=== PATIENT | male | born 1930 | race Caucasian/White ===

== ENCOUNTER → 2016-11-02 | Outpatient (CLI) | payer OTHER | LOC: BHFA 13:30 | PROVIDERS: ATTEND Internal Medicine Cardiovascular Disease | DX: I47.2 Ventricular tachycardia (principal) | CPT/HCPCS: 78452; 93017; A9500; J2785 ==

== ENCOUNTER → 2016-11-17 | Outpatient (CLI) | payer OTHER | LOC: FIMAGING 13:24 | PROVIDERS: ATTEND Internal Medicine | DX: J90 Pleural effusion, not elsewhere classified (principal) ==

== ENCOUNTER 2016-12-09 12:20 | Inpatient (IN) | payer OTHER ==
[2016-12-09] MEDS ORDERED: ACETAMINOPHEN 325 MG TAB PO PRN (15:04)
[2016-12-09] MEDS ORDERED: MAGNESIUM HYDROXIDE 30 ML UDCUP PO PRN (15:07)
[2016-12-09] MEDS ORDERED: SENNOSIDES 17.6 MG/10 ML UDL PO PRN (15:07)
[2016-12-09] MEDS ORDERED: ALTEPLASE 2 MG VIAL IVP PRN (15:07)
[2016-12-09] MEDS ORDERED: MAG HYDROX/AL HYDROX/SIMETH 30 ML UDCUP PO PRN (15:07)
[2016-12-09] MEDS ORDERED: POLYETHYLENE GLYCOL 3350 17 GM PKT PO PRN (15:07)
[2016-12-09] MEDS ORDERED: BISACODYL 10 MG SUPP PR PRN (15:07)
--- NOTE | 2016-12-09 15:48 | PDGENHP ---
History and Physical - Chief Complaint functional decline s/p prolonged hospitalization - History of Present Illness Date of admission: 12/09/2016 Referring physician: Mary Gutierres MD Time of evaluation: 1300 Referring facility: [facility] diagnosis: Debility, Parkinsonism Impairment group: 16, 03.2 Etiologic diagnosis: Empyema c/b parkinsonism Date of onset: 11/17/2016 History of present illness: Mr. Ortega is a RHD 85yo man with history of BPH and recent diagnosis of Parkinsonism (~1month prior to acute hospitalization ) who presented to [facility] with bacterial (pleural fluid grew Strep Intermedius) pneumonia and empyema necessitating a VATS decortication (Dr. Camilo Steele) on 11/17. He was also found to have severe oropharyngeal dysphagia which likely contributed to the above and is currently NPO and had PEG placed. Before discharge had chest tube removed and ID consult recommending 4 additional weeks of IV ceftriaxone for pneumonia and presumed endocarditis, therefore a PICC has been placed. Currently is without complaint and eager to improve his functional status. History Information - Allergies/Home Medication List Allergies/Adverse Reactions: No Known Allergies Allergy (Unverified 02/26/13 15:42) Home Medications: RX: Dorzolamide HCl/Timolol Maleat [Cosopt Eye Drops] 1 drop EACHEYE BID [Last Taken 12/08/16] RX: Doxazosin Mesylate [Cardura 4 MG (*)] 4 mg PO HS 02/26/13 [Last Taken ] RX: Finasteride [Proscar 5 MG (*)] 5 mg PO DAILY 02/26/13 [Last Taken 12/09/16] RX: Latanoprost 0.005% [Xalatan 0.005% (*)] 1 drops EACHEYE HS 02/26/13 [Last Taken 12/07/16] RX: Simvastatin [Zocor 40 mg] 40 mg PO DAILY18 02/26/13 [Last Taken 12/08/16] RX: Aspirin [Aspirin 81mg (*)] 81 mg PO DAILY 08/12/15 [Last Taken 11/17/16] RX: C/E/Zn/Cu/OM3/DHA/EPA/LUT/ZEAX [Preservision Areds 2 Softgel] 1 each PO BID 08/12/15 [Last Taken 08/12/15 08:00] RX: Multivitamins [Multivitamin (*)] 1 each PO DAILY 08/12/15 [Last Taken 08:00] RX: Niacin [Niacin 500 mg (*)] 1,000 mg PO BID 08/12/15 [Last Taken 08/12/15 08: 00] RX: Hartshorn-3 Fatty Acids [Fish Oil 1000 mg (*)] 1,000 mg PO HS 08/12/15 [Last Taken 08/11/15] RX: Hartshorn-3 Fatty Acids [Fish Oil 1000 mg (*)] 2,000 mg PO DAILY 08/12/15 [Last Taken 08/12/15] RX: Donepezil HCl [Aricept 5 MG (*)] 10 mg PO DAILY 05/23/16 [Last Taken ] RX: Ascorbic Acid [Vitamin C 500 mg (*)] 500 mg PO DAILY 11/17/16 [Last Taken Unknown] RX: Brimonidine 0.1% [ALPHAGAN P 0.1% (*)] 1 drops EACHEYE DAILY 11/17/16 [Last Taken Unknown] RX: Carbidopa/Levodopa 25/100Mg [Sinemet 25/100 MG (*)] 1 tab PO TID 11/17/16 [ Last Taken 12/09/16] I have personally reviewed and updated: family history, medical history, social history, surgical history Past Medical History: BPH. Parkinsons. Glaucoma. HTN - Surgical History Reports: no pertinent surgical hx - Family History Additional family history: NC - Social History Smoking Status: Never smoked Alcohol Use: None Drug Use: None Additional social history: Lives with in [place], both retired. LOTS of family around community. Prior to admit was independent in all functional tasks but is no longer driving. Review of Systems ROS: 10pt was reviewed & negative except for what was stated in HPI & below Constitutional: Denies: chills EENMT: Denies: double vision Cardiac: Denies: chest pain Respiratory: Denies: cough, shortness of breath Gastrointestinal: Denies: vomitting Genitourinary: Reports: frequency, urgency Muscolosketal: Denies: joint pain Skin: Reports: rash Neurological: Reports: tremors Hematologic/Lymphatic: Reports: anemia Physical Exam Temp Pulse Resp BP Pulse Ox 36.8 C 56 L 16 126/61 H 96 12/09/16 13:14 12/09/16 13:14 12/09/16 13:14 12/09/16 13:14 12/09/16 13:14 O2 (L/minute) 0 Constitutional: no apparent distress, not in pain Eyes: PERRL Ears, Nose, Mouth, Throat: moist mucous membranes Cardiovascular: regular rate and rhythym Respiratory: no respiratory distress, no rales or rhonchi, clear to auscultation Gastrointestinal: normoactive bowel sounds, soft, non-tender abdomen Skin: warm, other (Fungal perineal rash, excoriated papular back rash) Musculoskeletal: full muscle strength, No normal joint ROM (limited left shoulder range of motion) Neurologic: AAOx3, CN II-XII Intact, other (+resting tremor, no ataxia, slight bradykenesia and initiation lag, some executive functional deficits but no aphasia), No numbness Psychiatric: interacting appropriately Lymph, Heme, Immunologic: petechiae (some bruising in legs/arms/abdomen) Lab Data & Imaging Review Relevant labs (12/07) WBC 8.5, Hgb 9.5, Plt 351 NA 135 K 4.2 Cl 102 C02 27 BUN 21 Cr 0.6 Glu 119 Assessment & Plan Assessment: Mr. Ortega is a pleasant right handed 85 year old man with recent diagnosis of Parkinsonism (~1month prior to acute hospitalization) who presented to [facility] with bacterial (pleural fluid grew Strep Intermedius) pneumonia and empyema necessitating a VATS decortication (Dr. Camilo Steele) on 11/17 with severe oropharyngeal dysphagia s/p PEG placement. All of which has resulted in significant deconditioning and functional decline. Currently is requiring assistance for most ADLs and mobility. He is appropriate for rehabilitation with therapy needs for physical, speech, and occupational therapy regarding mobility, dysphagia, and activities of daily living. Her goal is to be independent enough to return home and live with intermittent assistance. He will need close medical management and nursing care regarding her comorbidities including pulmonary disease, risk for falls, risk for aspiration, ongoing infectious and wound management, initiation of complicated novel medical regiment, and medical education. Plan: * Debility following prolonged hospitalization: Continue physical and occupational therapy to optimize functional status and mobility. 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 Sinemet TID and aricept * BPH: cont finasteride 5 daily, consider addition of flomax, will get bladder scan * Perineal Fungal rash: BID Nystatin * Excoriated back rash: reports this is chronic but unclear etiology, will trial cortisone cream for pruritis * Anemia: likely post-op, improving at OSH will recheck before d/c * HTN/Dyslipidemia: cont cardura, lipitor (home was on niacin and possibly fish oil but difficult with PEG, will hold to outpt f/u with pcp) * Glaucoma: cont. Cosopt BID, latanoprost HS Prophylaxis-> DVT, on LMWH. GI, on ranitidine BID FULL CODE, this was discussed with pt and on admit and info packet given to ensure documentation of wishes and help understanding of code process F/U: Dr. James (ID) in 3-[address] Steele (Surgery) in 3 weeks ELOS 18 days. Plan to d/c to home with 6STE with available for intermittent assist.
[2016-12-09] MEDS: CARBIDOPA/LEVODOPA 25 MG/100 MG TAB PO SCH ×2 (15:58→23:04)
[2016-12-09] MEDS: HYDROCORTISONE 1% CREAM TP SCH ×2 (16:01→20:10)
[2016-12-09] MEDS ORDERED: ATORVASTATIN CALCIUM 20 MG TAB PO SCH (18:00)
[2016-12-09] MEDS: NIACIN 500 MG TAB PO SCH (20:06)
[2016-12-09] MEDS: RANITIDINE HCL 150 MG/10 ML UDCUP TUBE SCH (20:06)
[2016-12-09] MEDS: NYSTATIN 15 GM OINTMENT TP SCH (20:09)
[2016-12-09] MEDS: LATANOPROST 0.005% 2.5 ML OPHT DROPS EACHEYE SCH (20:10)
[2016-12-09] MEDS: DORZOLAMIDE/TIMOLOL 10 ML OPHT.BTL EACHEYE SCH (20:10)
[2016-12-09] MEDS ORDERED: MELATONIN 3 MG TAB PO SCH (21:00)
[2016-12-09] MEDS ORDERED: DOXAZOSIN MESYLATE 4 MG TAB PO SCH (21:00)
[2016-12-09] MEDS: PRESERVISION AREDS2 FORMULA EYE VIT 1 EACH PO SCH (23:01)
[2016-12-10] MEDS ORDERED: OMEGA-3 FATTY ACIDS 1,000 MG CAP PO SCH (09:00)
[2016-12-10] MEDS ORDERED: CEFTRIAXONE IV SCH (09:00)
[2016-12-10] MEDS ORDERED: BRIMONIDINE 0.1% 5 ML OPHT.BTL EACHEYE SCH (09:00)
[2016-12-10] MEDS ORDERED: MULTIVITAMINS 1 EACH TAB PO SCH (09:00)
[2016-12-10] MEDS ORDERED: ASCORBIC ACID 500 MG TAB PO SCH (09:00)
[2016-12-10] MEDS ORDERED: ASPIRIN 81 MG CHEWABLE TAB PO SCH (09:00)
[2016-12-10] MEDS ORDERED: DEXTROSE IV SCH (09:00)
[2016-12-10] MEDS ORDERED: FINASTERIDE 5 MG TAB PO SCH (09:00)
[2016-12-10] MEDS ORDERED: DONEPEZIL HCL 5 MG TAB PO SCH (09:00)
[2016-12-10] MEDS: CARBIDOPA/LEVODOPA 25 MG/100 MG TAB PO SCH (09:25)
[2016-12-10] MEDS: DORZOLAMIDE/TIMOLOL 10 ML OPHT.BTL EACHEYE SCH ×2 (09:25→21:30)
[2016-12-10] MEDS: ENOXAPARIN 40 MG/0.4 ML SYR SC SCH (09:25)
[2016-12-10] MEDS: NIACIN 500 MG TAB PO SCH (09:26)
[2016-12-10] MEDS: HYDROCORTISONE 1% CREAM TP SCH ×2 (09:26→21:30)
[2016-12-10] MEDS: NYSTATIN 15 GM OINTMENT TP SCH ×2 (09:27→21:31)
[2016-12-10] MEDS: RANITIDINE HCL 150 MG/10 ML UDCUP TUBE SCH ×2 (09:27→21:28)
[2016-12-10] MEDS ORDERED: ACETAMINOPHEN 650 MG/20.3 ML UDCUP TUBE PRN (11:30)
[2016-12-10] MEDS ORDERED: MAG HYDROX/AL HYDROX/SIMETH 30 ML UDCUP TUBE PRN (11:32)
[2016-12-10] MEDS ORDERED: MAGNESIUM HYDROXIDE 30 ML UDCUP TUBE PRN (11:32)
[2016-12-10] MEDS ORDERED: SENNOSIDES 17.6 MG/10 ML UDL TUBE PRN (11:33)
[2016-12-10] MEDS: PRESERVISION AREDS2 FORMULA EYE VIT 1 EACH PO SCH (11:55)
--- NOTE | 2016-12-10 11:55 | SOAPPROG ---
SOAP Progress Note Assessment/Plan: Mr. Ortega is a pleasant right handed 85 year old man with recent diagnosis of Parkinsonism (~1month prior to acute hospitalization) who presented to [facility] with bacterial (pleural fluid grew Strep Intermedius) pneumonia and empyema necessitating a VATS decortication (Dr. Camilo Steele) on 11/17 with severe oropharyngeal dysphagia s/p PEG placement. All of which has resulted in significant deconditioning and functional decline. Currently is requiring assistance for most ADLs and mobility. * Debility following prolonged hospitalization: Continue physical and occupational therapy to optimize functional status and mobility. 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 home Sinemet TID and aricept * BPH: cont finasteride 5 daily, consider addition of flomax, will get bladder scan * Perineal Fungal rash: BID Nystatin * Excoriated back rash: reports this is chronic but unclear etiology, will trial cortisone cream for pruritis * Anemia: likely post-op, improving at OSH will recheck before d/c * HTN/Dyslipidemia: cont cardura, lipitor (home was on niacin and possibly fish oil but difficult with PEG, will hold to outpt f/u with pcp) * Glaucoma: cont. Cosopt BID, latanoprost HS Prophylaxis-> DVT, on LMWH. GI, on ranitidine BID FULL CODE, this was discussed with pt and on admit and info packet given to ensure documentation of wishes and help understanding of code process F/U: Dr. James (ID) in 3-[address] Steele (Surgery) in 3 weeks Subjective: No complaints this a.m. Enjoying therapy. Denies SOB/CP. Objective: Vital Signs Temp Pulse Resp BP Pulse Ox 36.4 C 61 16 97/58 L 93 12/10/16 10:56 12/10/16 10:56 12/10/16 10:56 12/10/16 10:56 12/10/16 10:56 12/09/16 12/10/16 12/11/16 04:59 05:59 05:59 Intake Total 974 Output Total 700 Balance 274 - Pending Discharge Pending Discharge Within 24 Hours: No Pending Discharge Within 48 Hours: No Physical Exam - Physical Exam General Appearance: alert, no apparent distress Neck: supple Respiratory: lungs clear, decreased breath sounds (RLL), No respiratory distress , No accessory muscle use Cardiac/Chest: regular rate, rhythm Abdomen: non-tender, soft, other (PEG site C/d/i) Male Genitalia: erythema Skin: normal color, rash Extremities: No pedal edema Neuro/Psych: alert, normal mood/affect, oriented x 3, cognition abnormalities, speech abnormalities (slight hypophonia) ICD10 Worksheet Patient Problems: Problems Problem Status Onset Altered mental state Acute Ataxia Acute UTI (urinary tract infection) Acute
[2016-12-10] MEDS: CARBIDOPA/LEVODOPA 25 MG/100 MG TAB TUBE SCH ×2 (16:24→21:29)
[2016-12-10] MEDS: MULTIVITAMINS 5 ML UDL TUBE SCH (16:24)
[2016-12-10] MEDS: ATORVASTATIN CALCIUM 20 MG TAB TUBE SCH (16:36)
[2016-12-10] MEDS: DOXAZOSIN MESYLATE 4 MG TAB TUBE SCH (21:28)
[2016-12-10] MEDS: MELATONIN 3 MG TAB TUBE SCH (21:29)
[2016-12-10] MEDS: LATANOPROST 0.005% 2.5 ML OPHT DROPS EACHEYE SCH (21:29)
[2016-12-11] MEDS: ENOXAPARIN 40 MG/0.4 ML SYR SC SCH (07:18)
[2016-12-11] MEDS: FINASTERIDE 5 MG TAB TUBE SCH (07:19)
[2016-12-11] MEDS: ASCORBIC ACID 500 MG TAB TUBE SCH (07:19)
[2016-12-11] MEDS: RANITIDINE HCL 150 MG/10 ML UDCUP TUBE SCH ×2 (07:19→21:32)
[2016-12-11] MEDS: MULTIVITAMINS 5 ML UDL TUBE SCH (07:20)
[2016-12-11] MEDS: ASPIRIN 81 MG CHEWABLE TAB TUBE SCH (07:20)
[2016-12-11] MEDS: DONEPEZIL HCL 5 MG TAB TUBE SCH (07:20)
[2016-12-11] MEDS: CARBIDOPA/LEVODOPA 25 MG/100 MG TAB TUBE SCH ×3 (07:20→21:14)
[2016-12-11] MEDS: NYSTATIN 15 GM OINTMENT TP SCH ×2 (07:33→21:17)
[2016-12-11] MEDS: DORZOLAMIDE/TIMOLOL 10 ML OPHT.BTL EACHEYE SCH ×2 (07:34→21:15)
[2016-12-11] MEDS: HYDROCORTISONE 1% CREAM TP SCH ×2 (07:34→21:16)
--- NOTE | 2016-12-11 16:10 | SOAPPROG ---
SOAP Progress Note Assessment/Plan: Assessment/Plan: Mr. Ortega is a pleasant right handed 85 year old man with recent diagnosis of Parkinsonism (~1month prior to acute hospitalization) who presented to [facility] with bacterial (pleural fluid grew Strep Intermedius) pneumonia and empyema necessitating a VATS decortication (Dr. Camilo Steele) on 11/17 with severe oropharyngeal dysphagia s/p PEG placement. All of which has resulted in significant deconditioning and functional decline. Currently is requiring assistance for most ADLs and mobility. 12/11, multiple issues. pt with improving redness which appears related to fungal infection on buttock as he was using an adult diaper for primary incontinence control as an outpatient. Antibiotics to end 12/16 for pulm treatment. Cog deficits are somewhat interfering with therapies, MONEY EXAMINER evaluating , likely related to parkinsons. Back rash responding to steroid cream, unclear of dx (chroinc). * Debility following prolonged hospitalization: Continue physical and occupational therapy to optimize functional status and mobility. * Cog impairments, NOS: MONEY EXAMINER to eval, likely related to parkinsonism noted later in plan. Complicating the therapy course. 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 home Sinemet TID and aricept * BPH: cont finasteride 5 daily, consider addition of flomax, will get bladder scan * Perineal Fungal rash: BID Nystatin * Excoriated back rash: reports this is chronic but unclear etiology, trial cortisone cream for pruritis ->improved symptoms * Anemia: likely post-op, improving at OSH will recheck before d/c * HTN/Dyslipidemia: cont cardura, lipitor (home was on niacin and possibly fish oil but difficult with PEG, will hold to outpt f/u with pcp) * Glaucoma: cont. Cosopt BID, latanoprost HS Prophylaxis-> DVT, on LMWH. GI, on ranitidine BID FULL CODE, this was discussed with pt and on admit and info packet given to ensure documentation of wishes and help understanding of code process F/U: Dr. James (ID) in 3-[address] Steele (Surgery) in 3 weeks BERNY 12/1812/11/16 16:00 Subjective: CC: Cog and skin issues No acute events overnight. Therapies note some cognitive changes that are interfering with therapies to some extent. He reports less pruritis with back rash with steroid cream, improved redness on sacrum and buttock, sascha area with antifungal cream. Continued bladder incontinence but improved with timed voids. Clarified that abx to end on 12/16 per dc summary. Pt notes no pain, good participation in therapies. Objective: Vital Signs Temp Pulse Resp BP Pulse Ox 36.7 C 54 L 16 153/76 H 93 12/11/16 08:26 12/11/16 08:26 12/11/16 08:26 12/11/16 08:26 12/11/16 08:26 12/10/16 12/11/16 12/12/16 05:59 05:59 05:59 Intake Total 3334 290 Output Total 1175 200 Balance 2159 90 Physical Exam - Physical Exam General Appearance: alert, no apparent distress EENT: No scleral icterus (R), No scleral icterus (L) Respiratory: lungs clear, normal breath sounds, No respiratory distress Cardiac/Chest: normal peripheral pulses, regular rate, rhythm, No edema Abdomen: normal bowel sounds, non-tender, soft Male Genitalia: other (mild erythema skin rash, nurse reports improved. ) Rectal: No hemorrhoids Skin: normal color, warm/dry, rash (Sascha and buttock rash improving per nursing with cream. Macular, non raised. Blanching, does not appear pressure related overall, hard to exclude possibility of any pressure related redness somewhere within boundaries. ) Extremities: No pedal edema, No swelling Neuro/Psych: alert, normal mood/affect ICD10 Worksheet Patient Problems: Problems Problem Status Onset Altered mental state Acute Ataxia Acute UTI (urinary tract infection) Acute
--- NOTE | 2016-12-11 16:45 | PDOREHIP ---
Admission [facility] - Admission - 3 Day Assessment Period Admission Date/Day 1: 12/09/16 Day 2: 12/10/16 Day 3: 12/11/16 - Active Diagnoses Comorbidities and Co-existing Conditions at Admission: 71699. None of the Above - Skin Conditions Unhealed Pressure Ulcer (1 or more/Stage 1 or >)-Admission: 0. No (Pt with redness in sascha area likely related to fungal infection, improved with antifungal. However, it makes it hard to definitively exclude skin redness due to pressure (within the area of the rash on the sacrum))
[2016-12-11] MEDS: ATORVASTATIN CALCIUM 20 MG TAB TUBE SCH (18:05)
[2016-12-11] MEDS: MELATONIN 3 MG TAB TUBE SCH (21:14)
[2016-12-11] MEDS: DOXAZOSIN MESYLATE 4 MG TAB TUBE SCH (21:14)
[2016-12-11] MEDS: LATANOPROST 0.005% 2.5 ML OPHT DROPS EACHEYE SCH (21:17)
[2016-12-12] MEDS: DONEPEZIL HCL 5 MG TAB TUBE SCH (07:48)
[2016-12-12] MEDS: ASCORBIC ACID 500 MG TAB TUBE SCH (07:48)
[2016-12-12] MEDS: DORZOLAMIDE/TIMOLOL 10 ML OPHT.BTL EACHEYE SCH ×2 (07:48→20:24)
[2016-12-12] MEDS: CARBIDOPA/LEVODOPA 25 MG/100 MG TAB TUBE SCH ×3 (07:48→20:23)
[2016-12-12] MEDS: ASPIRIN 81 MG CHEWABLE TAB TUBE SCH (07:48)
[2016-12-12] MEDS: ENOXAPARIN 40 MG/0.4 ML SYR SC SCH (07:49)
[2016-12-12] MEDS: HYDROCORTISONE 1% CREAM TP SCH ×2 (07:49→20:24)
[2016-12-12] MEDS: FINASTERIDE 5 MG TAB TUBE SCH (07:49)
[2016-12-12] MEDS: NYSTATIN 15 GM OINTMENT TP SCH ×2 (07:50→20:25)
[2016-12-12] MEDS: MULTIVITAMINS 5 ML UDL TUBE SCH (07:50)
[2016-12-12] MEDS: RANITIDINE HCL 150 MG/10 ML UDCUP TUBE SCH ×2 (07:50→20:23)
--- NOTE | 2016-12-12 13:25 | SOAPPROG ---
SOAP Progress Note Assessment/Plan: Assessment: Rght handed 85 year old man with recent diagnosis of Parkinsonism (~1month prior to acute hospitalization) bacterial pneumonia and empyema necessitating a VATS decortication (Dr. Camilo Steele) on 11/17 with severe oropharyngeal dysphagia s/p PEG placement. * Debility following prolonged hospitalization: Initial FIM 54 on 12/11/16. Walked with shuffling gait 300' CGA FWW. CGA to min A for ADLs. Retropulsive and fatigues easily. Continue physical and occupational therapy to optimize functional status and mobility. * Cog impairments, NOS: Deficits to att'n, speed of processing, memory. 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 home Sinemet TID and aricept * Bradycardia and h/o non-sustained V-tach. B-mindy contraindicated due to bradycardia. Monitor for symptoms. * BPH: cont finasteride 5 daily. PVR by bladder scan 75 cc. * Perineal Fungal rash: nurse reports considerable improvement with BID Nystatin * Excoriated back rash: reports this is chronic but unclear etiology, trial cortisone cream for pruritis ->improved symptoms * Anemia: likely post-op, improving at OSH will recheck before d/c * HTN/Dyslipidemia: cont doxazosin, atorvastatin (home was on niacin and possibly fish oil but difficult with PEG, will hold to outpt f/u with pcp) * Glaucoma: cont. Cosopt BID, latanoprost HS Prophylaxis-> DVT, on LMWH. GI, on ranitidine BID FULL CODE, this was discussed with pt and on admit and info packet given to ensure documentation of wishes and help understanding of code process Estimated discharge date 12/28/16, home with . F/U: Dr. James (ID) in 3-[address] Steele (Surgery) in 3 weeks 12/12/16 14:10 Subjective: No complaints. Breathing well. Not in pain. No f/c. Objective: Vital Signs Temp Pulse Resp BP Pulse Ox 36.4 C 53 L 14 148/62 H 94 12/11/16 19:54 12/11/16 19:54 12/11/16 19:54 12/11/16 19:54 12/11/16 19:54 12/11/16 12/12/16 12/13/16 05:59 05:59 05:59 Intake Total 3334 1395 Output Total 1175 1200 Balance 2159 195 Physical Exam - Physical Exam General Appearance: WD/WN, alert, no apparent distress Respiratory: decreased breath sounds (Right lung), No crackles, No rhonchi, No wheezing Cardiac/Chest: regular rate, rhythm, No edema Abdomen: non-tender, soft, No distended Skin: normal color, warm/dry, other (PEG site with minimal crusting & erythema) Neuro/Psych: no motor/sensory deficits, alert, normal mood/affect ICD10 Worksheet Patient Problems: Problems Problem Status Onset Altered mental state Acute Ataxia Acute UTI (urinary tract infection) Acute
[2016-12-12] MEDS: ATORVASTATIN CALCIUM 20 MG TAB TUBE SCH (17:53)
[2016-12-12] MEDS: DOXAZOSIN MESYLATE 4 MG TAB TUBE SCH (20:23)
[2016-12-12] MEDS: MELATONIN 3 MG TAB TUBE SCH (20:23)
[2016-12-12] MEDS: LATANOPROST 0.005% 2.5 ML OPHT DROPS EACHEYE SCH (20:24)
[2016-12-13] MEDS: ENOXAPARIN 40 MG/0.4 ML SYR SC SCH (09:43)
[2016-12-13] MEDS: ASCORBIC ACID 500 MG TAB TUBE SCH (09:44)
[2016-12-13] MEDS: ASPIRIN 81 MG CHEWABLE TAB TUBE SCH (09:44)
[2016-12-13] MEDS: DONEPEZIL HCL 5 MG TAB TUBE SCH (09:44)
[2016-12-13] MEDS: CARBIDOPA/LEVODOPA 25 MG/100 MG TAB TUBE SCH ×3 (09:44→21:26)
[2016-12-13] MEDS: RANITIDINE HCL 150 MG/10 ML UDCUP TUBE SCH ×2 (09:45→21:26)
[2016-12-13] MEDS: FINASTERIDE 5 MG TAB TUBE SCH (09:45)
[2016-12-13] MEDS: MULTIVITAMINS 5 ML UDL TUBE SCH (09:45)
[2016-12-13] MEDS: DORZOLAMIDE/TIMOLOL 10 ML OPHT.BTL EACHEYE SCH ×2 (12:58→21:34)
[2016-12-13] MEDS: NYSTATIN 15 GM OINTMENT TP SCH ×2 (13:01→21:27)
[2016-12-13] MEDS: HYDROCORTISONE 1% CREAM TP SCH ×2 (13:02→21:27)
--- NOTE | 2016-12-13 13:21 | SOAPPROG ---
SOAP Progress Note Assessment/Plan: Assessment: Rght handed 85 year old man with recent diagnosis of Parkinsonism (~1month prior to acute hospitalization) bacterial pneumonia and empyema necessitating a VATS decortication (Dr. Camilo Steele) on 11/17 with severe oropharyngeal dysphagia s/p PEG placement. * Debility following prolonged hospitalization: Initial FIM 54 on 12/11/16. Walked with shuffling gait 300' CGA FWW. CGA to min A for ADLs. Retropulsive and fatigues easily. Continue physical and occupational therapy to optimize functional status and mobility. * Cog impairments, NOS: Deficits to att'n, speed of processing, memory. 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 Recheck labs: CBC, CMP, TSH. * Parkinsonism with dementia features: cont. home Sinemet TID and aricept * Bradycardia and h/o non-sustained V-tach. B-mindy contraindicated due to bradycardia. Monitor for symptoms. * BPH: cont finasteride 5 daily. PVR by bladder scan 75 cc. * Perineal Fungal rash: nurse reports considerable improvement with BID Nystatin * Excoriated back rash: reports this is chronic but unclear etiology, trial cortisone cream for pruritis ->improved symptoms * Anemia: likely post-op, improving at OSH will recheck before d/c * HTN/Dyslipidemia: cont doxazosin, atorvastatin (home was on niacin and possibly fish oil but difficult with PEG, will hold to outpt f/u with pcp) * Glaucoma: cont. Cosopt BID, latanoprost HS Prophylaxis-> DVT, on LMWH. GI, on ranitidine BID FULL CODE, this was discussed with pt and on admit and info packet given to ensure documentation of wishes and help understanding of code process Estimated discharge date 12/28/16, home with . F/U: Dr. James (ID) in 3-[address] Steele (Surgery) in 3 weeks 12/13/16 13:15 Subjective: C/O fatigue. Says he's always had a lot of energy, but he's enjoying resting after therapies. Denies f/c, dyspnea, cough, n/v/c/d. Objective: Vital Signs Temp Pulse Resp BP Pulse Ox 37.1 C 85 16 104/65 95 12/13/16 08:00 12/13/16 08:00 12/13/16 08:00 12/13/16 08:00 12/13/16 08:00 12/12/16 12/13/16 12/14/16 05:59 05:59 05:59 Intake Total 1395 2120 Output Total 1200 700 200 Balance 195 1420 -200 Physical Exam - Physical Exam General Appearance: WD/WN, alert, no apparent distress Respiratory: normal breath sounds (Diminished on R), No crackles, No rhonchi, No wheezing Cardiac/Chest: regular rate, rhythm, No edema Skin: normal color, warm/dry Neuro/Psych: alert, normal mood/affect ICD10 Worksheet Patient Problems: Problems Problem Status Onset Altered mental state Acute Ataxia Acute UTI (urinary tract infection) Acute
[2016-12-13] MEDS: ATORVASTATIN CALCIUM 20 MG TAB TUBE SCH (17:56)
[2016-12-13] MEDS: DOXAZOSIN MESYLATE 4 MG TAB TUBE SCH (21:26)
[2016-12-13] MEDS: MELATONIN 3 MG TAB TUBE SCH (21:26)
[2016-12-13] MEDS: LATANOPROST 0.005% 2.5 ML OPHT DROPS EACHEYE SCH (21:34)
[2016-12-14] MEDS: NYSTATIN 15 GM OINTMENT TP SCH ×2 (07:58→21:06)
[2016-12-14] MEDS: HYDROCORTISONE 1% CREAM TP SCH ×2 (07:59→21:06)
[2016-12-14] MEDS: DORZOLAMIDE/TIMOLOL 10 ML OPHT.BTL EACHEYE SCH ×2 (07:59→21:14)
[2016-12-14 09:09] LABS: ABSOLUTE IMMATURE GRANULOCYTES 0.09 10^3/uL (0.00-0.10); ADD DIFF? NO; ADD MORPH? NO; ADD SCAN? NO; ATYPICAL LYMPHOCYTE FLAG 10 (0-99); FRAGMENT RBC FLAG 0 (0-99); HEMATOCRIT 30.3 % (40.0-51.0); HEMOGLOBIN 9.3 g/dL (13.7-17.5); LEFT SHIFT FLG 10 (0-99); LIPEMIA HEMOLYSIS FLAG 80 (0-99); MEAN CELL HEMOGLOBIN 25.8 pg (27.9-34.1); MEAN CELL HEMOGLOBIN CONCENTR. 30.7 g/dL (32.4-36.7); MEAN CELL VOLUME 84.2 fL (81.5-99.8); PLATELET CLUMPS FLAG 10 (0-99); PLATELET COUNT 287 10^3/uL (150-400); RED CELL DISTRIBUTION WIDTH 15.6 % (11.5-15.2)
[2016-12-14] MEDS: ASPIRIN 81 MG CHEWABLE TAB TUBE SCH (09:22)
[2016-12-14] MEDS: DONEPEZIL HCL 5 MG TAB TUBE SCH (09:23)
[2016-12-14] MEDS: CARBIDOPA/LEVODOPA 25 MG/100 MG TAB TUBE SCH ×3 (09:25→21:05)
[2016-12-14 09:26] LABS: ALANINE AMINOTRANSFERASE 39 IU/L (21-72); ALBUMIN 2.4 g/dL (3.5-5.0); ALKALINE PHOSPHATASE 184 IU/L (38-126); ANION GAP 6 mEq/L (8-16); ASPARTATE AMINOTRANSFERASE 29 IU/L (17-59); BILIRUBIN,TOTAL 0.7 mg/dL (0.1-1.4); CALCIUM 7.7 mg/dL (8.5-10.4); CARBON DIOXIDE 27 mEq/l (22-31); CHLORIDE 99 mEq/L (97-110); CREATININE 0.6 mg/dL (0.7-1.3); GLOMERULAR FILTRATION RATE > 60; GLUCOSE 78 mg/dL (70-100); POTASSIUM 4.3 mEq/L (3.5-5.2); SODIUM 132 mEq/L (134-144)
[2016-12-14] MEDS: ENOXAPARIN 40 MG/0.4 ML SYR SC SCH (09:26)
[2016-12-14] MEDS: ASCORBIC ACID 500 MG TAB TUBE SCH (09:26)
[2016-12-14] MEDS: RANITIDINE HCL 150 MG/10 ML UDCUP TUBE SCH ×2 (09:26→21:05)
[2016-12-14] MEDS: MULTIVITAMINS 5 ML UDL TUBE SCH (09:26)
[2016-12-14] MEDS: FINASTERIDE 5 MG TAB TUBE SCH (09:48)
--- NOTE | 2016-12-14 13:24 | SOAPPROG ---
SOAP Progress Note Assessment/Plan: Assessment: Right handed 85 year old man with recent diagnosis of Parkinsonism (~1month prior to acute hospitalization) bacterial pneumonia and empyema necessitating a VATS decortication (Dr. Camilo Steele) on 11/17 with severe oropharyngeal dysphagia s/p PEG placement. * Debility following prolonged hospitalization: Initial FIM 54 on 12/11/16. Walked with shuffling gait 300' CGA FWW. CGA to min A for ADLs. Retropulsive and fatigues easily. Continue physical and occupational therapy to optimize functional status and mobility. * Cog impairments, NOS: Deficits to att'n, speed of processing, memory. 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 Labs 12/14/15 with slightly worse anemia, improved albumin, mild hyponatremia, TSH wnl. Has orthostatic hypotension. * Orthostatic hypotension: systolic 112 to 86 from supine to standing, no HR response, c/w autonomic dysfn with Parkinson's. D/C doxazosin. Monitor BP and continue orthostatic checks. * HypoNa, mild, U and S osm, serum uric acid, C/W SIADH. Will reduce water flush after TF, and repeat BMP in AM. * Parkinsonism with dementia features: cont. home Sinemet TID and aricept * Bradycardia and h/o non-sustained V-tach. B-mindy contraindicated due to bradycardia. Monitor for symptoms. * BPH: cont finasteride 5 daily. PVR by bladder scan 75 cc. COnitnue to monitor PVR without doxazosin; more selective alpha blockers cannot be administered by tube. * Perineal Fungal rash: nurse reports considerable improvement with BID Nystatin * Excoriated back rash: reports this is chronic but unclear etiology, trial cortisone cream for pruritis ->improved symptoms * Anemia: likely post-op, improving at OSH; mild decline in H/H. Retics appropriately high, mild iorn deficiency. Start iron supplement; check stool hemoccult. * HTN/Dyslipidemia: Observe BP off doxazosin, continue atorvastatin (home was on niacin and possibly fish oil but difficult with PEG, will hold to outpt f/u with pcp) * Glaucoma: cont. Cosopt BID, latanoprost HS; add brimonidine brought from home. Prophylaxis-> DVT, on LMWH. GI, on ranitidine BID FULL CODE, this was discussed with pt and on admit and info packet given to ensure documentation of wishes and help understanding of code process Estimated discharge date 12/28/16, home with . F/U: Dr. James (ID) in 3-[address] Steele (Surgery) in 3 weeks 12/14/16 15:28 Subjective: Nicholson dizzy and fatigued while ambulating with PT. No cough or dyspnea, no dysuria, no f/c. Objective: Vital Signs Temp Pulse Resp BP Pulse Ox 36.9 C 72 16 140/62 H 95 12/14/16 06:26 12/14/16 06:26 12/14/16 06:26 12/14/16 06:26 12/14/16 06:26 Laboratory Results 12/14/16 06:00 12/14/16 06:00 12/13/16 12/14/16 12/15/16 05:59 05:59 05:59 Intake Total 2120 1718 450 Output Total 700 1080 275 Balance 1420 638 175 Physical Exam - Physical Exam General Appearance: WD/WN, alert, no apparent distress Respiratory: normal breath sounds (Diminished on R), No crackles, No rhonchi, No wheezing Cardiac/Chest: regular rate, rhythm, No edema Skin: normal color, warm/dry Neuro/Psych: alert, normal mood/affect, oriented x 3, abnormal gait (short shuffling steps with FWW) ICD10 Worksheet Patient Problems: Problems Problem Status Onset Altered mental state Acute Ataxia Acute UTI (urinary tract infection) Acute
[2016-12-14 13:59] LABS: URIC ACID 3.2 mg/dL (3.5-8.5)
[2016-12-14 14:09] LABS: % SATURATION 18 % (20-55); TOTAL IRON BINDING CAPACITY 191 ug/dL (260-490)
[2016-12-14 14:56] LABS: COLOR AMBER; LEUKOCYTE ESTERASE,URINE NEGATIVE (NEGATIVE); NITRITE,URINE NEGATIVE (NEGATIVE)
[2016-12-14] MEDS ORDERED: BRIMONIDINE 0.2% 5 ML OPHT.BTL EACHEYE SCH ×2 (16:00)
[2016-12-14] MEDS: ATORVASTATIN CALCIUM 20 MG TAB TUBE SCH (18:49)
[2016-12-14] MEDS: BRIMONIDINE 0.2% 5 ML OPHT.BTL EACHEYE SCH (21:05)
[2016-12-14] MEDS: MELATONIN 3 MG TAB TUBE SCH (21:06)
[2016-12-14] MEDS: LATANOPROST 0.005% 2.5 ML OPHT DROPS EACHEYE SCH (21:14)
[2016-12-15] MEDS: MULTIVITAMINS 5 ML UDL TUBE SCH (09:01)
[2016-12-15] MEDS: ASCORBIC ACID 500 MG TAB TUBE SCH (09:01)
[2016-12-15] MEDS: ENOXAPARIN 40 MG/0.4 ML SYR SC SCH (09:01)
[2016-12-15] MEDS: RANITIDINE HCL 150 MG/10 ML UDCUP TUBE SCH ×2 (09:01→20:11)
[2016-12-15] MEDS: CARBIDOPA/LEVODOPA 25 MG/100 MG TAB TUBE SCH ×3 (09:02→21:56)
[2016-12-15] MEDS: DONEPEZIL HCL 5 MG TAB TUBE SCH (09:02)
[2016-12-15] MEDS: FINASTERIDE 5 MG TAB TUBE SCH (09:02)
[2016-12-15] MEDS: ASPIRIN 81 MG CHEWABLE TAB TUBE SCH (09:02)
[2016-12-15] MEDS: DORZOLAMIDE/TIMOLOL 10 ML OPHT.BTL EACHEYE SCH ×2 (09:03→20:12)
[2016-12-15] MEDS: HYDROCORTISONE 1% CREAM TP SCH ×2 (09:27→20:11)
[2016-12-15] MEDS: NYSTATIN 15 GM OINTMENT TP SCH ×2 (09:28→20:12)
[2016-12-15] MEDS: FERROUS SULFATE 300 MG/5 ML UD CUP PO SCH (10:49)
[2016-12-15] MEDS: BRIMONIDINE 0.2% 5 ML OPHT.BTL EACHEYE SCH ×2 (10:50→20:13)
--- NOTE | 2016-12-15 11:16 | SOAPPROG ---
SOAP Progress Note Assessment/Plan: Assessment: Right handed 85 year old man with recent diagnosis of Parkinsonism (~1month prior to acute hospitalization) bacterial pneumonia and empyema necessitating a VATS decortication (Dr. Camilo Steele) on 11/17 with severe oropharyngeal dysphagia s/p PEG placement. * Debility following prolonged hospitalization: Initial FIM 54 on 12/11/16. Walked with shuffling gait 300' CGA FWW. CGA to min A for ADLs. Retropulsive and fatigues easily. Continue physical and occupational therapy to optimize functional status and mobility. * Cog impairments, NOS: Deficits to att'n, exec fn, prob solving, speed of processing, memory. 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 * Severe Dysphagia: NPO with TFs per PEG (currently Jevity 55cc continuous, RD c /s), CRIME SCENE TECHNICIAN. Cleared for water protocol 12/14/16. 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 Labs 12/14/15 with slightly worse anemia, improved albumin, mild hyponatremia, TSH wnl. Has orthostatic hypotension. * Orthostatic hypotension: systolic 112 to 86 from supine to standing, no HR response, c/w autonomic dysfn with Parkinson's. D/C doxazosin. Monitor BP and continue orthostatic checks. * HypoNa 12/14/16, mild, U and S osm, serum uric acid, C/W SIADH. Resolved after reduced water flush after TF * Parkinsonism with dementia features: cont. home Sinemet TID and aricept * Bradycardia and h/o non-sustained V-tach. B-mindy contraindicated due to bradycardia. Monitor for symptoms. * BPH: cont finasteride 5 daily. PVR by bladder scan 75 cc. COnitnue to monitor PVR without doxazosin; more selective alpha blockers cannot be administered by tube. * Perineal Fungal rash: nurse reports considerable improvement with BID Nystatin * Excoriated back rash: reports this is chronic but unclear etiology, trial cortisone cream for pruritis ->improved symptoms * Anemia: likely post-op, improving at OSH; mild decline in H/H. Retics appropriately high, mild iorn deficiency. Start iron supplement; check stool hemoccult. * HTN/Dyslipidemia: Observe BP off doxazosin, continue atorvastatin (home was on niacin and possibly fish oil but difficult with PEG, will hold to outpt f/u with pcp) * Glaucoma: cont. Cosopt BID, latanoprost HS; add brimonidine brought from home. Prophylaxis-> DVT, on LMWH. GI, on ranitidine BID FULL CODE, this was discussed with pt and on admit and info packet given to ensure documentation of wishes and help understanding of code process Estimated discharge date 12/28/16, home with . F/U: Dr. James (ID) in 3-[address] Steele (Surgery) in 3 weeks 12/15/16 13:18 Subjective: Feeling better today. Walking better without lightheadedness. Still with urinary frequency. Objective: Vital Signs Temp Pulse Resp BP Pulse Ox 36.7 C 66 16 137/66 H 95 12/15/16 06:10 12/15/16 06:10 12/15/16 06:10 12/15/16 06:10 12/15/16 06:10 Laboratory Results 12/14/16 06:00 12/14/16 12/15/16 12/16/16 05:59 05:59 05:59 Intake Total 1718 1685 Output Total 1080 775 100 Balance 638 910 -100 Physical Exam - Physical Exam General Appearance: WD/WN, alert, no apparent distress Respiratory: No respiratory distress, No accessory muscle use Skin: normal color, warm/dry Neuro/Psych: alert, normal mood/affect, oriented x 3, abnormal gait (Shuffling gait improved with longer stride) ICD10 Worksheet Patient Problems: Problems Problem Status Onset Altered mental state Acute Ataxia Acute UTI (urinary tract infection) Acute
[2016-12-15 11:37] LABS: ANION GAP 11 mEq/L (8-16); CALCIUM 7.7 mg/dL (8.5-10.4); CARBON DIOXIDE 26 mEq/l (22-31); CHLORIDE 97 mEq/L (97-110); CREATININE 0.5 mg/dL (0.7-1.3); GLOMERULAR FILTRATION RATE > 60; GLUCOSE 74 mg/dL (70-100); POTASSIUM 4.2 mEq/L (3.5-5.2); SODIUM 134 mEq/L (134-144)
[2016-12-15] MEDS: ATORVASTATIN CALCIUM 20 MG TAB TUBE SCH (16:43)
[2016-12-15] MEDS: MELATONIN 3 MG TAB TUBE SCH (20:11)
[2016-12-15] MEDS: LATANOPROST 0.005% 2.5 ML OPHT DROPS EACHEYE SCH (20:13)
[2016-12-16] MEDS: ASPIRIN 81 MG CHEWABLE TAB TUBE SCH (09:24)
[2016-12-16] MEDS: ASCORBIC ACID 500 MG TAB TUBE SCH (09:24)
[2016-12-16] MEDS: FERROUS SULFATE 300 MG/5 ML UD CUP PO SCH (09:25)
[2016-12-16] MEDS: CARBIDOPA/LEVODOPA 25 MG/100 MG TAB TUBE SCH ×3 (09:25→20:24)
[2016-12-16] MEDS: BRIMONIDINE 0.2% 5 ML OPHT.BTL EACHEYE SCH ×2 (09:25→20:23)
[2016-12-16] MEDS: FINASTERIDE 5 MG TAB TUBE SCH (09:26)
[2016-12-16] MEDS: ENOXAPARIN 40 MG/0.4 ML SYR SC SCH (09:26)
[2016-12-16] MEDS: NYSTATIN 15 GM OINTMENT TP SCH ×2 (09:27→20:22)
[2016-12-16] MEDS: HYDROCORTISONE 1% CREAM TP SCH ×2 (09:27→20:23)
--- NOTE | 2016-12-16 10:19 | SOAPPROG ---
SOAP Progress Note Assessment/Plan: Assessment: Right handed 85 year old man with recent diagnosis of Parkinsonism (~1month prior to acute hospitalization) bacterial pneumonia and empyema necessitating a VATS decortication (Dr. Camilo Steele) on 11/17 with severe oropharyngeal dysphagia s/p PEG placement. 12/16 pt is stable and participating. FOBT (-) PVR low yesterday, continuing to follow orthostatics. Midodrine contraindicated due to BPH, fludricortisone may not appropriate due to supine hypertension. Will try caffeine at 60 mg qAM to start, may titrate up from there (up to range of 100-250 mg TID with meals). * Debility following prolonged hospitalization: Initial FIM 54 on 12/11/16. Walked with shuffling gait 300' CGA FWW. CGA to min A for ADLs. Retropulsive and fatigues easily. Continue physical and occupational therapy to optimize functional status and mobility. * Cog impairments, NOS: Deficits to att'n, exec fn, prob solving, speed of processing, memory. 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 * Severe Dysphagia: NPO with TFs per PEG (currently Jevity 55cc continuous, RD c /s), BUSINESS STRATEGY MANAGER. Cleared for water protocol 12/14/16. 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 Labs 12/14/15 with slightly worse anemia, improved albumin, mild hyponatremia, TSH wnl. Has orthostatic hypotension. * Orthostatic hypotension: systolic 112 to 86 from supine to standing, no HR response, c/w autonomic dysfn with Parkinson's. D/C doxazosin. Monitor BP and continue orthostatic checks. * HypoNa 12/14/16, mild, U and S osm, serum uric acid, C/W SIADH. Resolved after reduced water flush after TF * Parkinsonism with dementia features: cont. home Sinemet TID and aricept * Bradycardia and h/o non-sustained V-tach. B-mindy contraindicated due to bradycardia. Monitor for symptoms. * BPH: cont finasteride 5 daily. PVR by bladder scan 75 cc. COnitnue to monitor PVR without doxazosin; more selective alpha blockers cannot be administered by tube. * Perineal Fungal rash: nurse reports considerable improvement with BID Nystatin * Excoriated back rash: reports this is chronic but unclear etiology, trial cortisone cream for pruritis ->improved symptoms * Anemia: likely post-op, improving at OSH; mild decline in H/H. Retics appropriately high, mild iorn deficiency. Start iron supplement; stool Hemoccult was negative * HTN/Dyslipidemia: Observe BP off doxazosin, continue atorvastatin (home was on niacin and possibly fish oil but difficult with PEG, will hold to outpt f/u with pcp) * Glaucoma: cont. Cosopt BID, latanoprost HS; add brimonidine brought from home. Prophylaxis-> DVT, on LMWH. GI, on ranitidine BID FULL CODE, this was discussed with pt and on admit and info packet given to ensure documentation of wishes and help understanding of code process Estimated discharge date 12/28/16, home with . F/U: Dr. James (ID) in 3-[address] Steele (Surgery) in 3 weeks 12/16/16 10:23 12/16/16 10:26 Subjective: CC: orthostatics and anemia No acute events overnight. He continues to have significant drop in blood pressure with standing without concurrent elevation in HR. Otherwise he is feeling well, a bit tired today. FOBT was negative. Also, PVR was low yesterday. Pt otherwise denies CP/ dyspnea, new numbness, tingling or weakness. Objective: Vital Signs Temp Pulse Resp BP Pulse Ox 36.9 C 56 L 14 166/79 H 95 12/16/16 08:00 12/16/16 08:00 12/16/16 08:00 12/16/16 08:00 12/16/16 08:00 Laboratory Results 12/14/16 06:00 12/15/16 05:50 12/15/16 12/16/16 12/17/16 05:59 05:59 05:59 Intake Total 1685 1580 Output Total 775 950 Balance 910 630 Physical Exam - Physical Exam General Appearance: alert, no apparent distress EENT: No scleral icterus (R), No scleral icterus (L) Respiratory: No respiratory distress, No accessory muscle use Cardiac/Chest: normal peripheral pulses, regular rate, rhythm Skin: normal color, warm/dry Extremities: No pedal edema, No swelling Neuro/Psych: alert, normal mood/affect ICD10 Worksheet Patient Problems: Problems Problem Status Onset Orthostatic hypotension Acute Altered mental state Acute Ataxia Acute UTI (urinary tract infection) Acute - ICD10 Problem Qualifiers (1) Orthostatic hypotension
[2016-12-16] MEDS ORDERED: CAFFEINE CITRATED 20 MG/ML UDSYR TUBE SCH (10:30)
[2016-12-16] MEDS: RANITIDINE HCL 150 MG/10 ML UDCUP TUBE SCH ×2 (10:42→20:21)
[2016-12-16] MEDS: DORZOLAMIDE/TIMOLOL 10 ML OPHT.BTL EACHEYE SCH ×2 (10:42→20:22)
[2016-12-16] MEDS: DONEPEZIL HCL 5 MG TAB TUBE SCH (10:42)
[2016-12-16] MEDS: MULTIVITAMINS 5 ML UDL TUBE SCH (10:42)
[2016-12-16] MEDS: ATORVASTATIN CALCIUM 20 MG TAB TUBE SCH (18:24)
[2016-12-16] MEDS: MELATONIN 3 MG TAB TUBE SCH (20:21)
[2016-12-16] MEDS: LATANOPROST 0.005% 2.5 ML OPHT DROPS EACHEYE SCH (20:22)
[2016-12-17] MEDS: ASCORBIC ACID 500 MG TAB TUBE SCH (07:33)
[2016-12-17] MEDS: ASPIRIN 81 MG CHEWABLE TAB TUBE SCH (07:33)
[2016-12-17] MEDS: BRIMONIDINE 0.2% 5 ML OPHT.BTL EACHEYE SCH ×2 (07:33→20:25)
[2016-12-17] MEDS: CARBIDOPA/LEVODOPA 25 MG/100 MG TAB TUBE SCH ×3 (07:34→20:30)
[2016-12-17] MEDS: DONEPEZIL HCL 5 MG TAB TUBE SCH (07:34)
[2016-12-17] MEDS: DORZOLAMIDE/TIMOLOL 10 ML OPHT.BTL EACHEYE SCH ×2 (07:35→20:25)
[2016-12-17] MEDS: ENOXAPARIN 40 MG/0.4 ML SYR SC SCH (07:35)
[2016-12-17] MEDS: MULTIVITAMINS 5 ML UDL TUBE SCH (07:36)
[2016-12-17] MEDS: FINASTERIDE 5 MG TAB TUBE SCH (07:36)
[2016-12-17] MEDS: FERROUS SULFATE 300 MG/5 ML UD CUP PO SCH (07:36)
[2016-12-17] MEDS: HYDROCORTISONE 1% CREAM TP SCH ×2 (07:36→20:20)
[2016-12-17] MEDS: NYSTATIN 15 GM OINTMENT TP SCH ×2 (07:36→20:26)
[2016-12-17] MEDS: RANITIDINE HCL 150 MG/10 ML UDCUP TUBE SCH ×2 (07:37→20:24)
[2016-12-17] MEDS ORDERED: NS 1,000 ML IV SCH (10:15)
--- NOTE | 2016-12-17 11:34 | SOAPPROG ---
SOAP Progress Note Assessment/Plan: Assessment: Right handed 85 year old man with recent diagnosis of Parkinsonism (~1month prior to acute hospitalization) bacterial pneumonia and empyema necessitating a VATS decortication (Dr. Camilo Steele) on 11/17 with severe oropharyngeal dysphagia s/p PEG placement. 12/17 no new issues, feels better with caffeine. Still has orthostatic hypotension on vitals, but unclear if this was taken before or after coffee. Pt does not recall. Continue to monitor. * Debility following prolonged hospitalization: Initial FIM 54 on 12/11/16. Walked with shuffling gait 300' CGA FWW. CGA to min A for ADLs. Retropulsive and fatigues easily. Continue physical and occupational therapy to optimize functional status and mobility. * Cog impairments, NOS: Deficits to att'n, exec fn, prob solving, speed of processing, memory. 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 Coffee helped (see orthostatic hypotension) * Severe Dysphagia: NPO with TFs per PEG (currently Jevity 55cc continuous, RD c /s), PULPING MACHINE OPERATOR. Cleared for water protocol 12/14/16. 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 Labs 12/14/15 with slightly worse anemia, improved albumin, mild hyponatremia, TSH wnl. Has orthostatic hypotension. * Orthostatic hypotension: systolic 112 to 86 from supine to standing, no HR response, c/w autonomic dysfn with Parkinson's. D/C doxazosin. Monitor BP and continue orthostatic checks. Coffee via PEG tube daily, may increase if helpful. * HypoNa 12/14/16, mild, U and S osm, serum uric acid, C/W SIADH. Resolved after reduced water flush after TF * Parkinsonism with dementia features: cont. home Sinemet TID and aricept * Bradycardia and h/o non-sustained V-tach. B-mindy contraindicated due to bradycardia. Monitor for symptoms. * BPH: cont finasteride 5 daily. PVR by bladder scan 75 cc. COnitnue to monitor PVR without doxazosin; more selective alpha blockers cannot be administered by tube. * Perineal Fungal rash: nurse reports considerable improvement with BID Nystatin * Excoriated back rash: reports this is chronic but unclear etiology, trial cortisone cream for pruritis ->improved symptoms * Anemia: likely post-op, improving at OSH; mild decline in H/H. Retics appropriately high, mild iorn deficiency. Start iron supplement; stool Hemoccult was negative * HTN/Dyslipidemia: Observe BP off doxazosin, continue atorvastatin (home was on niacin and possibly fish oil but difficult with PEG, will hold to outpt f/u with pcp) * Glaucoma: cont. Cosopt BID, latanoprost HS; add brimonidine brought from home. Prophylaxis-> DVT, on LMWH. GI, on ranitidine BID FULL CODE, this was discussed with pt and on admit and info packet given to ensure documentation of wishes and help understanding of code process Estimated discharge date 12/28/16, home with . F/U: Dr. James (ID) in 3-[address] Steele (Surgery) in 3 weeks 12/16/16 10:23 12/16/16 10:26 12/17/16 11:30 Subjective: CC: orthostatic hypotension No acute events overnight. Pt feels like a "veil has been lifted" today and feels much more like himself. He is unsure if coffee was administered before or after morning orthostatics. Otherwise, no new numbness, tingling, or weakness. Participating well, no new concerns. Objective: Vital Signs Temp Pulse Resp BP Pulse Ox 37.1 C 48 L 16 153/78 H 94 12/17/16 08:00 12/17/16 08:00 12/17/16 06:44 12/17/16 08:00 12/17/16 06:44 Laboratory Results 12/14/16 06:00 12/15/16 05:50 12/16/16 12/17/16 12/18/16 05:59 05:59 05:59 Intake Total 1580 2235 Output Total 950 625 Balance 630 1610 Physical Exam - Physical Exam General Appearance: alert, no apparent distress EENT: No scleral icterus (R), No scleral icterus (L) Respiratory: lungs clear, normal breath sounds, No respiratory distress, No accessory muscle use Cardiac/Chest: normal peripheral pulses, regular rate, rhythm Skin: normal color, warm/dry Extremities: No pedal edema, No swelling Neuro/Psych: alert, normal mood/affect ICD10 Worksheet Patient Problems: Problems Problem Status Onset Orthostatic hypotension Acute Altered mental state Acute Ataxia Acute UTI (urinary tract infection) Acute - ICD10 Problem Qualifiers (1) Orthostatic hypotension
[2016-12-17] MEDS: ATORVASTATIN CALCIUM 20 MG TAB TUBE SCH (17:39)
[2016-12-17] MEDS: LATANOPROST 0.005% 2.5 ML OPHT DROPS EACHEYE SCH (20:22)
[2016-12-17] MEDS: MELATONIN 3 MG TAB TUBE SCH (20:23)
[2016-12-18] MEDS: ASCORBIC ACID 500 MG TAB TUBE SCH (08:35)
[2016-12-18] MEDS: ASPIRIN 81 MG CHEWABLE TAB TUBE SCH (08:35)
[2016-12-18] MEDS: DONEPEZIL HCL 5 MG TAB TUBE SCH (08:36)
[2016-12-18] MEDS: DORZOLAMIDE/TIMOLOL 10 ML OPHT.BTL EACHEYE SCH ×3 (08:36→22:17)
[2016-12-18] MEDS: CARBIDOPA/LEVODOPA 25 MG/100 MG TAB TUBE SCH ×3 (08:36→22:13)
[2016-12-18] MEDS: ENOXAPARIN 40 MG/0.4 ML SYR SC SCH (08:37)
[2016-12-18] MEDS: FERROUS SULFATE 300 MG/5 ML UD CUP PO SCH (08:37)
[2016-12-18] MEDS: HYDROCORTISONE 1% CREAM TP SCH ×2 (08:38→22:18)
[2016-12-18] MEDS: NYSTATIN 15 GM OINTMENT TP SCH ×2 (08:38→22:18)
[2016-12-18] MEDS: RANITIDINE HCL 150 MG/10 ML UDCUP TUBE SCH (08:39)
[2016-12-18] MEDS: MULTIVITAMINS 5 ML UDL TUBE SCH (08:39)
[2016-12-18] MEDS: BRIMONIDINE 0.2% 5 ML OPHT.BTL EACHEYE SCH ×2 (08:52→22:17)
--- NOTE | 2016-12-18 12:02 | SOAPPROG ---
SOAP Progress Note Assessment/Plan: Assessment: Right handed 85 year old man with recent diagnosis of Parkinsonism (~1month prior to acute hospitalization) bacterial pneumonia and empyema necessitating a VATS decortication (Dr. Camilo Steele) on 11/17 with severe oropharyngeal dysphagia s/p PEG placement. * Debility following prolonged hospitalization: Initial FIM 54 on 12/11/16; improved to 69 on 12/18/16. Walked with shuffling gait 300' CGA FWW or no device. Set-up and supervision for ADLs, except min to mod A for lower body dressing. Retropulsive and fatigues easily. Motor planning deficit, not safe to ambulate independently. Can lose track mid-task, does not retain strategies for safety. Continue physical and occupational therapy to optimize functional status and mobility. * Cog impairments: Deficits to att'n, exec fn, memory. SLUMS ; was 2 years ago. Continue HIDE STRETCHER HAND. * Severe Dysphagia: NPO with TFs per PEG (currently Jevity 55cc continuous, RD c /s), HIDE STRETCHER HAND. Cleared for water protocol 12/14/16. 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 Labs 12/14/15 with slightly worse anemia, improved albumin, mild hyponatremia, TSH wnl. Has orthostatic hypotension. * Orthostatic hypotension: no HR response, c/w autonomic dysfn with Parkinson' s. D/C'd doxazosin 12/15/16. Aymptomatic but continues orthostatic. * HypoNa 12/14/16, mild, U and S osm, serum uric acid, C/W SIADH. Resolved after reduced water flush after TF * Parkinsonism with dementia features: cont. home Sinemet TID and aricept * Bradycardia and h/o non-sustained V-tach. B-mindy contraindicated due to bradycardia. Monitor for symptoms. * BPH: cont finasteride 5 daily. PVR by bladder scan 75 cc. Conitnue to monitor PVR without doxazosin; more selective alpha blockers cannot be administered by tube. * Perineal Fungal rash: nurse reports considerable improvement with BID Nystatin * Excoriated back rash: reports this is chronic but unclear etiology, trial cortisone cream for pruritis ->improved symptoms * Anemia: likely post-op, improving at OSH; mild decline in H/H. Retics appropriately high, mild iron deficiency. Start iron supplement; check stool hemoccult. * HTN/Dyslipidemia: Observe BP off doxazosin, continue atorvastatin (home was on niacin and possibly fish oil but difficult with PEG, will hold to outpt f/u with pcp) * Glaucoma: cont. Cosopt BID, latanoprost HS; add brimonidine brought from home. Prophylaxis-> DVT, on LMWH. GI, on ranitidine BID FULL CODE, this was discussed with pt and on admit and info packet given to ensure documentation of wishes and help understanding of code process Attended staffing, 15 min. D/W case mgmt, nurwslaura, PT, OT, HIDE STRETCHER HAND. Will need 24 hour supervision. has dementia also. Family conference 12/20/16. F/U: Dr. James (ID) in 3-[address] Steele (Surgery) in 3 weeks 12/18/16 12:02 Subjective: No complaimts. Reports feeling "80%" of normal. Sleeping well. No f/c, cough/ dyspnea. Objective: Vital Signs Temp Pulse Resp BP Pulse Ox 36.4 C 53 L 16 120/70 96 12/18/16 08:00 12/18/16 08:00 12/18/16 08:00 12/18/16 08:00 12/18/16 08:00 Laboratory Results 12/14/16 06:00 12/15/16 05:50 12/17/16 12/18/16 12/19/16 05:59 05:59 05:59 Intake Total 2620 1660 150 Output Total 725 600 50 Balance 1895 1060 100 - Time Spent With Patient Time Spent With Patient: Greater than 35 minutes floor time today, including more than 50% of time in coordination of care during staffing meeting, and counseling patient. Physical Exam - Physical Exam General Appearance: WD/WN, alert, no apparent distress Respiratory: normal breath sounds, No crackles, No rhonchi, No wheezing Cardiac/Chest: regular rate, rhythm, No edema Skin: normal color, warm/dry Neuro/Psych: alert, normal mood/affect ICD10 Worksheet Patient Problems: Problems Problem Status Onset Orthostatic hypotension Acute Altered mental state Acute Ataxia Acute UTI (urinary tract infection) Acute
[2016-12-18] MEDS: FINASTERIDE 5 MG TAB TUBE SCH (12:15)
[2016-12-18] MEDS: ATORVASTATIN CALCIUM 20 MG TAB TUBE SCH (16:10)
[2016-12-18] MEDS: MELATONIN 3 MG TAB TUBE SCH (22:13)
[2016-12-18] MEDS: LATANOPROST 0.005% 2.5 ML OPHT DROPS EACHEYE SCH (22:17)
[2016-12-19] MEDS: ASPIRIN 81 MG CHEWABLE TAB TUBE SCH (07:40)
[2016-12-19] MEDS: DONEPEZIL HCL 5 MG TAB TUBE SCH (07:40)
[2016-12-19] MEDS: FERROUS SULFATE 300 MG/5 ML UD CUP PO SCH (07:41)
[2016-12-19] MEDS: NYSTATIN 15 GM OINTMENT TP SCH ×2 (07:41→21:42)
[2016-12-19] MEDS: HYDROCORTISONE 1% CREAM TP SCH ×2 (07:41→21:42)
[2016-12-19] MEDS: MULTIVITAMINS 5 ML UDL TUBE SCH (07:41)
[2016-12-19] MEDS: FINASTERIDE 5 MG TAB TUBE SCH (07:41)
[2016-12-19] MEDS: CARBIDOPA/LEVODOPA 25 MG/100 MG TAB TUBE SCH ×3 (07:41→21:40)
[2016-12-19] MEDS: ASCORBIC ACID 500 MG TAB TUBE SCH (07:41)
[2016-12-19] MEDS: BRIMONIDINE 0.2% 5 ML OPHT.BTL EACHEYE SCH ×2 (07:42→21:41)
[2016-12-19] MEDS: ENOXAPARIN 40 MG/0.4 ML SYR SC SCH (07:46)
[2016-12-19] MEDS: DORZOLAMIDE/TIMOLOL 10 ML OPHT.BTL EACHEYE SCH ×2 (07:59→21:41)
--- NOTE | 2016-12-19 13:40 | SOAPPROG ---
SOAP Progress Note Assessment/Plan: Assessment: Right handed 85 year old man with recent diagnosis of Parkinsonism (~1month prior to acute hospitalization) bacterial pneumonia and empyema necessitating a VATS decortication (Dr. Camilo Steele) on 11/17 with severe oropharyngeal dysphagia s/p PEG placement. * Debility following prolonged hospitalization: Initial FIM 54 on 12/11/16; improved to 69 on 12/18/16. Walked with shuffling gait 300' CGA FWW or no device. Set-up and supervision for ADLs, except min to mod A for lower body dressing. Retropulsive and fatigues easily. Motor planning deficit, not safe to ambulate independently. Can lose track mid-task, does not retain strategies for safety. Continue physical and occupational therapy to optimize functional status and mobility. * Cog impairments: Deficits to att'n, exec fn, memory. SLUMS ; was 2 years ago. 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 * Severe Dysphagia: NPO with TFs per PEG (currently Jevity 55cc continuous, RD c /s), STEEL BOX TOE INSERTER. Cleared for water protocol 12/14/16. Motor planning deficit affects swallowing; may limit benefit of E-stim. 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 * Strep Intermedius pneumonia/possible endocarditis and empyema s/p VATS decortication: satting well on RA, ceftriaxone completed 12/16, D/C PICC 12/19/16. * Increased confusion? CBC with leukocytosis, CMP with minimal hyponatremia; UA pending. Await UA result re possible UTI. Monitor re hyponatremia; cautious re dehydration eduarda with orthostatic hypotension. * Fatigue. Labs 12/14/15 with slightly worse anemia, improved albumin, mild hyponatremia, TSH wnl. Has orthostatic hypotension. * Orthostatic hypotension: no HR response, c/w autonomic dysfn with Parkinson' s. D/C'd doxazosin 12/15/16. Asymptomatic but continues orthostatic. * HypoNa 12/14/16, mild, U and S osm, serum uric acid, C/W SIADH. Resolved after reduced water flush after TF; recurrent 12/19/16. Start NaCL supplment 1000 BID; recheck on 12/21/16. * Parkinsonism with dementia features: cont. home Sinemet TID and aricept * Bradycardia and h/o non-sustained V-tach. B-mindy contraindicated due to bradycardia. Monitor for symptoms. * BPH: cont finasteride 5 daily. PVR by bladder scan 75 cc. Conitnue to monitor PVR without doxazosin; more selective alpha blockers cannot be administered by tube. * Perineal Fungal rash: nurse reports considerable improvement with BID Nystatin * Excoriated back rash: reports this is chronic but unclear etiology, trial cortisone cream for pruritis ->improved symptoms * Anemia: likely post-op, improving at OSH; mild decline in H/H. Retics appropriately high, mild iron deficiency. Start iron supplement; check stool hemoccult. * HTN/Dyslipidemia: Observe BP off doxazosin, continue atorvastatin (home was on niacin and possibly fish oil but difficult with PEG, will hold to outpt f/u with pcp) * Glaucoma: cont. Cosopt BID, latanoprost HS; add brimonidine brought from home. Prophylaxis-> DVT, on LMWH. GI, on ranitidine BID FULL CODE, this was discussed with pt and on admit and info packet given to ensure documentation of wishes and help understanding of code process Will need 24 hour supervision. has dementia also. Family conference . F/U: Dr. James (ID) in 3-[address] Steele (Surgery) in 3 weeks 12/19/16 17:13 Subjective: Confusion noted by nurse and STEEL BOX TOE INSERTER. Has more difficulty following a conversation. He reports poor sleep and describes frequent interruptions for vitals. Denies f/c, cough, dyspnea. Has urinary frequency, no dysuria. Does not feel thirsty. Objective: Vital Signs Temp Pulse Resp BP Pulse Ox 36.7 C 56 L 20 162/84 H 94 12/19/16 08:26 12/19/16 08:26 12/19/16 08:26 12/19/16 08:26 12/19/16 08:26 Laboratory Results 12/14/16 06:00 12/15/16 05:50 12/18/16 12/19/16 12/20/16 05:59 05:59 05:59 Intake Total 1660 1385 Output Total 600 225 Balance 1060 1160 Physical Exam - Physical Exam General Appearance: WD/WN, alert, no apparent distress Respiratory: normal breath sounds, decreased breath sounds (on R), No respiratory distress, No accessory muscle use, No crackles, No rhonchi, No wheezing Cardiac/Chest: regular rate, rhythm, No edema Skin: normal color, warm/dry Neuro/Psych: alert, normal mood/affect, oriented x 3, abnormal gait (Short steps unless encouraged by PT. Step-through pattern, narrow base. CGA per PT, no device.) ICD10 Worksheet Patient Problems: Problems Problem Status Onset Orthostatic hypotension Acute Altered mental state Acute Ataxia Acute UTI (urinary tract infection) Acute
[2016-12-19] MEDS: ATORVASTATIN CALCIUM 20 MG TAB TUBE SCH (16:23)
[2016-12-19 16:38] LABS: % IMMATURE GRANULYOCYTES 1.6 % (0.0-1.1); ABSOLUTE IMMATURE GRANULOCYTES 0.19 10^3/uL (0.00-0.10); ADD DIFF? NO; ADD MORPH? NO; ADD SCAN? NO; ATYPICAL LYMPHOCYTE FLAG 30 (0-99); FRAGMENT RBC FLAG 0 (0-99); HEMATOCRIT 31.7 % (40.0-51.0); HEMOGLOBIN 9.9 g/dL (13.7-17.5); LEFT SHIFT FLG 10 (0-99); LIPEMIA HEMOLYSIS FLAG 80 (0-99); MEAN CELL HEMOGLOBIN 26.1 pg (27.9-34.1); MEAN CELL HEMOGLOBIN CONCENTR. 31.2 g/dL (32.4-36.7); MEAN CELL VOLUME 83.6 fL (81.5-99.8); MEAN PLATELET VOLUME 11.1 fL (8.7-11.7); PLATELET CLUMPS FLAG 10 (0-99); PLATELET COUNT 263 10^3/uL (150-400); RED BLOOD CELL COUNT 3.79 10^6/uL (4.40-6.38); RED CELL DISTRIBUTION WIDTH 15.9 % (11.5-15.2)
[2016-12-19 16:58] LABS: ALANINE AMINOTRANSFERASE 38 IU/L (21-72); ALBUMIN 2.7 g/dL (3.5-5.0); ALKALINE PHOSPHATASE 224 IU/L (38-126); ANION GAP 7 mEq/L (8-16); ASPARTATE AMINOTRANSFERASE 30 IU/L (17-59); BILIRUBIN,TOTAL 0.7 mg/dL (0.1-1.4); CALCIUM 8.2 mg/dL (8.5-10.4); CARBON DIOXIDE 30 mEq/l (22-31); CHLORIDE 95 mEq/L (97-110); CREATININE 0.6 mg/dL (0.7-1.3); GLOMERULAR FILTRATION RATE > 60; GLUCOSE 92 mg/dL (70-100); POTASSIUM 4.3 mEq/L (3.5-5.2); SODIUM 132 mEq/L (134-144); TOTAL PROTEIN 6.5 g/dL (6.3-8.2)
[2016-12-19] MEDS: SODIUM CHLORIDE 1,000 MG TAB TUBE SCH (17:48)
[2016-12-19 20:03] LABS: COLOR YELLOW; LEUKOCYTE ESTERASE,URINE NEGATIVE (NEGATIVE); NITRITE,URINE NEGATIVE (NEGATIVE)
[2016-12-19] MEDS: LATANOPROST 0.005% 2.5 ML OPHT DROPS EACHEYE SCH (21:41)
[2016-12-19] MEDS: MELATONIN 3 MG TAB TUBE SCH (21:41)
[2016-12-20] MEDS: FINASTERIDE 5 MG TAB TUBE SCH (07:32)
[2016-12-20] MEDS: CARBIDOPA/LEVODOPA 25 MG/100 MG TAB TUBE SCH ×3 (07:32→21:26)
[2016-12-20] MEDS: ASCORBIC ACID 500 MG TAB TUBE SCH (07:32)
[2016-12-20] MEDS: ASPIRIN 81 MG CHEWABLE TAB TUBE SCH (07:32)
[2016-12-20] MEDS: DONEPEZIL HCL 5 MG TAB TUBE SCH (07:33)
[2016-12-20] MEDS: BRIMONIDINE 0.2% 5 ML OPHT.BTL EACHEYE SCH ×2 (07:34→21:29)
[2016-12-20] MEDS: DORZOLAMIDE/TIMOLOL 10 ML OPHT.BTL EACHEYE SCH ×2 (07:34→21:29)
[2016-12-20] MEDS: NYSTATIN 15 GM OINTMENT TP SCH ×2 (07:34→21:29)
[2016-12-20] MEDS: MULTIVITAMINS 5 ML UDL TUBE SCH (07:35)
[2016-12-20] MEDS: FERROUS SULFATE 300 MG/5 ML UD CUP PO SCH (07:35)
[2016-12-20] MEDS: ENOXAPARIN 40 MG/0.4 ML SYR SC SCH (07:35)
[2016-12-20] MEDS: HYDROCORTISONE 1% CREAM TP SCH ×2 (07:35→21:29)
[2016-12-20] MEDS: SODIUM CHLORIDE 1,000 MG TAB TUBE SCH ×2 (07:36→17:39)
--- NOTE | 2016-12-20 13:12 | SOAPPROG ---
SOAP Progress Note Assessment/Plan: Assessment: Right handed 85 year old man with recent diagnosis of Parkinsonism (~1month prior to acute hospitalization) bacterial pneumonia and empyema necessitating a VATS decortication (Dr. Camilo Steele) on 11/17 with severe oropharyngeal dysphagia s/p PEG placement. * Debility following prolonged hospitalization: Initial FIM 54 on 12/11/16; improved to 69 on 12/18/16. Walked with shuffling gait 300' CGA FWW or no device. Set-up and supervision for ADLs, except min to mod A for lower body dressing. Retropulsive and fatigues easily. Motor planning deficit, not safe to ambulate independently. Can lose track mid-task, does not retain strategies for safety. Continue physical and occupational therapy to optimize functional status and mobility. * Cog impairments: Deficits to att'n, exec fn, memory. SLUMS ; was 2 years ago. Repeat SLUM 12/19/16. Continue DOUBLER HELPER. * Severe Dysphagia: NPO with TFs per PEG (currently Jevity 55cc continuous, RD c /s), DOUBLER HELPER. Cleared for water protocol 12/14/16. Motor planning deficit affects swallowing; may limit benefit of E-stim. Continue DOUBLER HELPER. * Strep Intermedius pneumonia/possible endocarditis and empyema s/p VATS decortication: satting well on RA, ceftriaxone completed 12/16. * Increased confusion? CBC with leukocytosis, CMP with minimal hyponatremia; UA w/out infection. * Hyponatremia; cautious re dehydration eduarda with orthostatic hypotension. Replace free water flushes with NS. Salt tablets BID. Recheck 2 days. * Fatigue. Labs 12/14/15 with slightly worse anemia, improved albumin, mild hyponatremia, TSH wnl. Has orthostatic hypotension. * Orthostatic hypotension: no HR response, c/w autonomic dysfn with Parkinson' s. D/C'd doxazosin 12/15/16. Asymptomatic but continues orthostatic. * HypoNa 12/14/16, mild, U and S osm, serum uric acid, C/W SIADH. Resolved after reduced water flush after TF; recurrent 12/19/16. Start NaCL supplment 1000 BID. * Parkinsonism with dementia features: cont. home Sinemet TID and aricept * Bradycardia and h/o non-sustained V-tach. B-mindy contraindicated due to bradycardia. Monitor for symptoms. * BPH: cont finasteride 5 daily. PVR by bladder scan 75 cc. Continue to monitor PVR without doxazosin; more selective alpha blockers cannot be administered by tube. * Perineal Fungal rash: improved with BID Nystatin * Excoriated back rash: reports this is chronic but unclear etiology, trial cortisone cream for pruritis ->improved symptoms * Anemia: likely post-op, improving at OSH; mild decline in H/H. Retics appropriately high, mild iron deficiency. Start iron supplement; stool hemoccult neg. Improving on labs 12/19/16. * HTN/Dyslipidemia: Observe BP off doxazosin, continue atorvastatin (home was on niacin and possibly fish oil but difficult with PEG, will hold to outpt f/u with pcp) * Glaucoma: cont. Cosopt BID, latanoprost HS; add brimonidine brought from home. Prophylaxis-> DVT, on LMWH. GI, on ranitidine BID FULL CODE, this was discussed with pt and on admit and info packet given to ensure documentation of wishes and help understanding of code process Attended fmaily meting, 30 min. Patient, , son, daughters in attendance. Will need 24 hour supervision, versus discharge to [facility]. has dementia also. F/U: Dr. James (ID) in 3-[address] Steele (Surgery) in 3 weeks 12/20/16 13:12 Subjective: No complaints. Slept well. No f/c, cough.dyspnea. Objective: Vital Signs Temp Pulse Resp BP Pulse Ox 36.6 C 60 16 150/82 H 95 12/20/16 06:24 12/20/16 06:24 12/20/16 06:24 12/20/16 06:24 12/20/16 06:24 Laboratory Results 12/19/16 16:00 12/19/16 16:00 12/19/16 12/20/16 12/21/16 05:59 05:59 05:59 Intake Total 1385 730 Output Total 225 550 Balance 1160 180 - Time Spent With Patient Time Spent With Patient: Greater than 35 minutes floor time today, including more than 50% of time incoordination of care and counseling patient and family during family meeting. Physical Exam - Physical Exam General Appearance: WD/WN, alert, no apparent distress Respiratory: normal breath sounds, decreased breath sounds (R lung), No crackles , No rhonchi, No wheezing Cardiac/Chest: regular rate, rhythm, No edema Skin: normal color, warm/dry, other (Eschar L tejada approx 1 cm with surrounding mild erythema, NT, no discharge, no induration.) Neuro/Psych: alert, normal mood/affect, oriented x 3, other (SHuffling gait) ICD10 Worksheet Patient Problems: Problems Problem Status Onset Orthostatic hypotension Acute Altered mental state Acute Ataxia Acute UTI (urinary tract infection) Acute
[2016-12-20] MEDS: ATORVASTATIN CALCIUM 20 MG TAB TUBE SCH (17:39)
[2016-12-20] MEDS: MELATONIN 3 MG TAB TUBE SCH (21:26)
[2016-12-20] MEDS: LATANOPROST 0.005% 2.5 ML OPHT DROPS EACHEYE SCH (21:29)
[2016-12-21] MEDS: DORZOLAMIDE/TIMOLOL 10 ML OPHT.BTL EACHEYE SCH ×2 (09:26→21:38)
[2016-12-21] MEDS: ASCORBIC ACID 500 MG TAB TUBE SCH (09:28)
[2016-12-21] MEDS: ASPIRIN 81 MG CHEWABLE TAB TUBE SCH (09:28)
[2016-12-21] MEDS: SODIUM CHLORIDE 1,000 MG TAB TUBE SCH ×2 (09:28→18:26)
[2016-12-21] MEDS: BRIMONIDINE 0.2% 5 ML OPHT.BTL EACHEYE SCH ×2 (09:29→21:39)
[2016-12-21] MEDS: HYDROCORTISONE 1% CREAM TP SCH (09:29)
[2016-12-21] MEDS: ENOXAPARIN 40 MG/0.4 ML SYR SC SCH (09:29)
[2016-12-21] MEDS: CARBIDOPA/LEVODOPA 25 MG/100 MG TAB TUBE SCH ×3 (09:29→21:39)
[2016-12-21] MEDS: FERROUS SULFATE 300 MG/5 ML UD CUP PO SCH (09:29)
[2016-12-21] MEDS: MULTIVITAMINS 5 ML UDL TUBE SCH (09:29)
[2016-12-21] MEDS: DONEPEZIL HCL 5 MG TAB TUBE SCH (09:29)
[2016-12-21] MEDS: FINASTERIDE 5 MG TAB TUBE SCH (09:30)
[2016-12-21] MEDS: NYSTATIN 15 GM OINTMENT TP SCH ×2 (09:30→21:39)
--- NOTE | 2016-12-21 09:59 | SOAPPROG ---
SOAP Progress Note Assessment/Plan: Assessment: Right handed 85 year old man with recent diagnosis of Parkinsonism (~1month prior to acute hospitalization) bacterial pneumonia and empyema necessitating a VATS decortication (Dr. Camilo Steele) on 11/17 with severe oropharyngeal dysphagia s/p PEG placement. * Debility following prolonged hospitalization: Initial FIM 54 on 12/11/16; improved to 69 on 12/18/16. Walked with shuffling gait 300' CGA FWW or no device. Set-up and supervision for ADLs, except min to mod A for lower body dressing. Retropulsive and fatigues easily. Motor planning deficit, not safe to ambulate independently. Can lose track mid-task, does not retain strategies for safety. Continue physical and occupational therapy to optimize functional status and mobility. * Cog impairments: Deficits to att'n, exec fn, memory. SLUMS ; was 2 years ago. Repeat SLUM 12/19/16. 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 * Severe Dysphagia: NPO with TFs per PEG (currently Jevity 55cc continuous, RD c /s), POULTRY HATCHERY MAN. Cleared for water protocol 12/14/16. Motor planning deficit affects swallowing; may limit benefit of E-stim. 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 * Strep Intermedius pneumonia/possible endocarditis and empyema s/p VATS decortication: satting well on RA, ceftriaxone completed 12/16. * Increased confusion? CBC with leukocytosis, CMP with minimal hyponatremia; UA w/out infection. * Hyponatremia; cautious re dehydration eduarda with orthostatic hypotension. Replace free water flushes with NS. Salt tablets BID. Recheck 12/22/16. * Fatigue. Labs 12/14/15 with slightly worse anemia, improved albumin, mild hyponatremia, TSH wnl. Has orthostatic hypotension. * Orthostatic hypotension: no HR response, c/w autonomic dysfn with Parkinson' s. D/C'd doxazosin 12/15/16. Asymptomatic but continues orthostatic. * HypoNa 12/14/16, mild, U and S osm, serum uric acid, C/W SIADH. Resolved after reduced water flush after TF; recurrent 12/19/16. Start NaCL supplement 1000 BID; replace free water with NS flush between tube feedings.. * Parkinsonism with dementia features: cont. home Sinemet TID and Aricept * Bradycardia and h/o non-sustained V-tach. B-mindy contraindicated due to bradycardia. Monitor for symptoms. * BPH: cont finasteride 5 daily. PVR by bladder scan 75 cc. Continue to monitor PVR without doxazosin; more selective alpha blockers cannot be administered by tube. * Perineal Fungal rash: improved with BID Nystatin * Excoriated back rash: reports this is chronic but unclear etiology, trial cortisone cream for pruritis ->improved symptoms; d/c 12/21/16 per his request. * Anemia: likely post-op, improving at OSH; mild decline in H/H. Retics appropriately high, mild iron deficiency. Start iron supplement; stool hemoccult neg. Improving on labs 12/19/16. * HTN/Dyslipidemia: Observe BP off doxazosin, continue atorvastatin (home was on niacin and possibly fish oil but difficult with PEG, will hold to outpt f/u with pcp). BP moderately elevated but antihypoertensive contraindicated with orthostatic hypotension * Glaucoma: cont. Cosopt BID, latanoprost HS; add brimonidine brought from home. Prophylaxis-> DVT, on LMWH. GI, on ranitidine BID FULL CODE, this was discussed with pt and on admit and info packet given to ensure documentation of wishes and help understanding of code process Will need 24 hour supervision, versus discharge to [facility]. has dementia also. F/U: Dr. James (ID) in 3-[address] Steele (Surgery) in 3 weeks 12/21/16 09:56 Subjective: Reports he was talking to a relative in [place] about "behavioral therapy" for swallowing. Requests D/C of hydrocortisone cream to back; says the rash has been there for a long time and does not itch or bother him otherwise. Sleeping well, no cough/dyspnea. Objective: Vital Signs Temp Pulse Resp BP Pulse Ox 36.7 C 62 16 152/72 H 95 12/21/16 06:40 12/21/16 06:40 12/21/16 06:40 12/21/16 06:40 12/21/16 06:40 Laboratory Results 12/19/16 16:00 12/19/16 16:00 12/20/16 12/21/16 12/22/16 05:59 05:59 05:59 Intake Total 730 1230 Output Total 550 550 200 Balance 180 680 -200 Physical Exam - Physical Exam General Appearance: WD/WN, alert, no apparent distress Respiratory: No respiratory distress, No accessory muscle use Skin: normal color, warm/dry, other (Multiple dark spots on back) Neuro/Psych: alert, normal mood/affect, oriented x 3 ICD10 Worksheet Patient Problems: Problems Problem Status Onset Orthostatic hypotension Acute Altered mental state Acute Ataxia Acute UTI (urinary tract infection) Acute
[2016-12-21] MEDS: ATORVASTATIN CALCIUM 20 MG TAB TUBE SCH (18:26)
[2016-12-21] MEDS: LATANOPROST 0.005% 2.5 ML OPHT DROPS EACHEYE SCH (21:39)
[2016-12-21] MEDS: MELATONIN 3 MG TAB TUBE SCH (21:39)
[2016-12-22 09:33] LABS: ANION GAP 10 mEq/L (8-16); CARBON DIOXIDE 26 mEq/l (22-31); CHLORIDE 99 mEq/L (97-110); CREATININE 0.6 mg/dL (0.7-1.3); GLOMERULAR FILTRATION RATE > 60; GLUCOSE 79 mg/dL (70-100); POTASSIUM 4.7 mEq/L (3.5-5.2); SODIUM 135 mEq/L (134-144)
[2016-12-22] MEDS: ASCORBIC ACID 500 MG TAB TUBE SCH (10:22)
[2016-12-22] MEDS: ASPIRIN 81 MG CHEWABLE TAB TUBE SCH (10:22)
[2016-12-22] MEDS: ENOXAPARIN 40 MG/0.4 ML SYR SC SCH (10:23)
[2016-12-22] MEDS: BRIMONIDINE 0.2% 5 ML OPHT.BTL EACHEYE SCH ×2 (10:23→20:44)
[2016-12-22] MEDS: CARBIDOPA/LEVODOPA 25 MG/100 MG TAB TUBE SCH ×3 (10:23→20:39)
[2016-12-22] MEDS: DONEPEZIL HCL 5 MG TAB TUBE SCH (10:23)
[2016-12-22] MEDS: DORZOLAMIDE/TIMOLOL 10 ML OPHT.BTL EACHEYE SCH ×2 (10:23→20:44)
[2016-12-22] MEDS: NYSTATIN 15 GM OINTMENT TP SCH ×2 (10:24→21:56)
[2016-12-22] MEDS: FERROUS SULFATE 300 MG/5 ML UD CUP PO SCH (10:24)
[2016-12-22] MEDS: MULTIVITAMINS 5 ML UDL TUBE SCH (10:24)
[2016-12-22] MEDS: FINASTERIDE 5 MG TAB TUBE SCH (10:24)
[2016-12-22] MEDS: SODIUM CHLORIDE 1,000 MG TAB TUBE SCH ×2 (10:25→16:38)
--- NOTE | 2016-12-22 13:28 | SOAPPROG ---
SOAP Progress Note Assessment/Plan: Assessment: Right handed 85 year old man with recent diagnosis of Parkinsonism (~1month prior to acute hospitalization) bacterial pneumonia and empyema necessitating a VATS decortication (Dr. Camilo Steele) on 11/17 with severe oropharyngeal dysphagia s/p PEG placement. * Debility following prolonged hospitalization: Initial FIM 54 on 12/11/16; improved to 69 on 12/18/16. Walked with shuffling gait 300' CGA FWW or no device. Set-up and supervision for ADLs, except min to mod A for lower body dressing. Retropulsive and fatigues easily. Motor planning deficit, not safe to ambulate independently. Can lose track mid-task, does not retain strategies for safety. Continue physical and occupational therapy to optimize functional status and mobility. * Cog impairments: Deficits to att'n, exec fn, memory. SLUMS ; was 2 years ago. Repeat SLUM 12/19/16. Continue ACCOUNT LEADER. * Severe Dysphagia: NPO with TFs per PEG (currently Jevity 55cc continuous, RD c /s), ACCOUNT LEADER. Cleared for water protocol 12/14/16. Motor planning deficit affects swallowing; may limit benefit of E-stim. Continue ACCOUNT LEADER. * Strep Intermedius pneumonia/possible endocarditis and empyema s/p VATS decortication: satting well on RA, ceftriaxone completed 12/16. * Increased confusion? CBC with leukocytosis, CMP with minimal hyponatremia; UA w/out infection. * Hyponatremia; cautious re dehydration eduarda with orthostatic hypotension. Replace free water flushes with NS. Salt tablets BID. Resolved 12/22/16. * Fatigue. Labs 12/14/15 with slightly worse anemia, improved albumin, mild hyponatremia, TSH wnl. Has orthostatic hypotension. * Orthostatic hypotension: no HR response, c/w autonomic dysfn with Parkinson' s. D/C'd doxazosin 12/15/16. Asymptomatic but continues orthostatic. * HypoNa 12/14/16, mild, U and S osm, serum uric acid, C/W SIADH. Resolved after reduced water flush after TF; recurrent 12/19/16. Start NaCL supplement 1000 BID; replace free water with NS flush between tube feedings. Recheck orthostatics after NaCl supplementation. * Parkinsonism with dementia features: cont. home Sinemet TID and Aricept * Bradycardia and h/o non-sustained V-tach. B-mindy contraindicated due to bradycardia. Monitor for symptoms. * BPH: cont finasteride 5 daily. PVR by bladder scan 75 cc. Continue to monitor PVR without doxazosin; more selective alpha blockers cannot be administered by tube. * Perineal Fungal rash: improved with BID Nystatin * Excoriated back rash: reports this is chronic but unclear etiology, trial cortisone cream for pruritis ->improved symptoms; d/c 12/21/16 per his request. * Anemia: likely post-op, improving at OSH; mild decline in H/H. Retics appropriately high, mild iron deficiency. Start iron supplement; stool hemoccult neg. Improving on labs 12/19/16. * HTN/Dyslipidemia: Observe BP off doxazosin, continue atorvastatin (home was on niacin and possibly fish oil but difficult with PEG, will hold to outpt f/u with pcp). BP moderately elevated but antihypertensive contraindicated with orthostatic hypotension * Glaucoma: cont. Cosopt BID, latanoprost HS; add brimonidine brought from home. Prophylaxis-> DVT, on LMWH. GI, on ranitidine BID FULL CODE, this was discussed with pt and on admit and info packet given to ensure documentation of wishes and help understanding of code process Will need 24 hour supervision, versus discharge to [facility]. has dementia also. Discharge planned for 12/28/16. F/U: Dr. James (ID) in 3-[address] Steele (Surgery) in 3 weeks 12/21/16 09:56 12/22/16 13:21 Subjective: No complaints. Slept well. No cough/dyspnea, f/c. Objective: Vital Signs Temp Pulse Resp BP Pulse Ox 36.6 C 58 L 16 150/70 H 92 12/22/16 06:37 12/22/16 10:31 12/22/16 06:37 12/22/16 10:31 12/22/16 06:37 Laboratory Results 12/19/16 16:00 12/22/16 06:00 12/21/16 12/22/16 12/23/16 05:59 05:59 05:59 Intake Total 1230 850 525 Output Total 550 1000 200 Balance 680 -150 325 Physical Exam - Physical Exam General Appearance: WD/WN, alert, no apparent distress Respiratory: normal breath sounds, decreased breath sounds (R lung), No crackles , No rhonchi, No wheezing Cardiac/Chest: regular rate, rhythm, No edema Skin: normal color, warm/dry Neuro/Psych: no motor/sensory deficits, alert, normal mood/affect, oriented x 3 ICD10 Worksheet Patient Problems: Problems Problem Status Onset Orthostatic hypotension Acute Altered mental state Acute Ataxia Acute UTI (urinary tract infection) Acute
[2016-12-22] MEDS: ATORVASTATIN CALCIUM 20 MG TAB TUBE SCH (16:38)
[2016-12-22] MEDS: MELATONIN 3 MG TAB TUBE SCH (20:39)
[2016-12-22] MEDS: LATANOPROST 0.005% 2.5 ML OPHT DROPS EACHEYE SCH (20:44)
[2016-12-23] MEDS: ASCORBIC ACID 500 MG TAB TUBE SCH (08:56)
[2016-12-23] MEDS: ASPIRIN 81 MG CHEWABLE TAB TUBE SCH (08:57)
[2016-12-23] MEDS: CARBIDOPA/LEVODOPA 25 MG/100 MG TAB TUBE SCH ×3 (09:03→20:42)
[2016-12-23] MEDS: SODIUM CHLORIDE 1,000 MG TAB TUBE SCH ×2 (09:04→17:00)
[2016-12-23] MEDS: FINASTERIDE 5 MG TAB TUBE SCH (09:08)
[2016-12-23] MEDS: MULTIVITAMINS 5 ML UDL TUBE SCH (09:11)
[2016-12-23] MEDS: FERROUS SULFATE 300 MG/5 ML UD CUP PO SCH (09:13)
[2016-12-23] MEDS: DONEPEZIL HCL 5 MG TAB TUBE SCH (09:21)
--- NOTE | 2016-12-23 09:23 | SOAPPROG ---
SOAP Progress Note Assessment/Plan: Right handed 85 year old man with recent diagnosis of Parkinsonism (~1month prior to acute hospitalization) bacterial pneumonia and empyema necessitating a VATS decortication (Dr. Camilo Steele) on 11/17 with severe oropharyngeal dysphagia s/p PEG placement. * Debility following prolonged hospitalization: Initial FIM 54 on 12/11/16; improved to 69 on 12/18/16. Walked with shuffling gait 300' CGA FWW or no device. Set-up and supervision for ADLs, except min to mod A for lower body dressing. Retropulsive and fatigues easily. Motor planning deficit, not safe to ambulate independently. Can lose track mid-task, does not retain strategies for safety. Continue physical and occupational therapy to optimize functional status and mobility. * Cog impairments: Deficits to att'n, exec fn, memory. SLUMS ; was 2 years ago. Repeat SLUM 12/19/16. Continue DIGITAL PROJECT COORDINATOR. * Severe Dysphagia: NPO with TFs per PEG (currently Jevity 55cc continuous, RD c /s), DIGITAL PROJECT COORDINATOR. Cleared for water protocol 12/14/16. Motor planning deficit affects swallowing; may limit benefit of E-stim. Continue DIGITAL PROJECT COORDINATOR. * Strep Intermedius pneumonia/possible endocarditis and empyema s/p VATS decortication: satting well on RA, ceftriaxone completed 12/16. * Increased confusion? CBC with leukocytosis, CMP with minimal hyponatremia; UA w/out infection. * Hyponatremia; cautious re dehydration eduarda with orthostatic hypotension. Replace free water flushes with NS. Salt tablets BID. Resolved 12/22/16. * Fatigue. Labs 12/14/15 with slightly worse anemia, improved albumin, mild hyponatremia, TSH wnl. Has orthostatic hypotension. * Orthostatic hypotension: no HR response, c/w autonomic dysfn with Parkinson' s. D/C'd doxazosin 12/15/16. Asymptomatic but continues orthostatic. * HypoNa 12/14/16, mild, U and S osm, serum uric acid, C/W SIADH. Resolved after reduced water flush after TF; recurrent 12/19/16. Start NaCL supplement 1000 BID; replace free water with NS flush between tube feedings. Recheck orthostatics after NaCl supplementation. * Parkinsonism with dementia features: cont. home Sinemet TID and Aricept * Bradycardia and h/o non-sustained V-tach. B-mindy contraindicated due to bradycardia. Monitor for symptoms. * BPH: cont finasteride 5 daily. PVR by bladder scan 75 cc. Continue to monitor PVR without doxazosin; more selective alpha blockers cannot be administered by tube. * Perineal Fungal rash: improved with BID Nystatin * Excoriated back rash: reports this is chronic but unclear etiology, trial cortisone cream for pruritis ->improved symptoms; d/c 12/21/16 per his request. * Anemia: likely post-op, improving at OSH; mild decline in H/H. Retics appropriately high, mild iron deficiency. Start iron supplement; stool hemoccult neg. Improving on labs 12/19/16. * HTN/Dyslipidemia: Observe BP off doxazosin, continue atorvastatin (home was on niacin and possibly fish oil but difficult with PEG, will hold to outpt f/u with pcp). BP moderately elevated but antihypertensive contraindicated with orthostatic hypotension * Glaucoma: cont. Cosopt BID, latanoprost HS; add brimonidine brought from home. Prophylaxis-> DVT, on LMWH. GI, on ranitidine BID FULL CODE, this was discussed with pt and on admit and info packet given to ensure documentation of wishes and help understanding of code process Will need 24 hour supervision, versus discharge to [facility]. has dementia also. Discharge planned for 12/28/16. F/U: Dr. James (ID) in 3-[address] Steele (Surgery) in 3 weeks Subjective: No events overnight. No complaints this a.m. Denies lightheadedness or nausea. Objective: Vital Signs Temp Pulse Resp BP Pulse Ox 36.7 C 54 L 16 170/74 H 93 12/23/16 06:47 12/23/16 06:47 12/23/16 06:47 12/23/16 06:47 12/23/16 06:47 Laboratory Results 12/19/16 16:00 12/22/16 06:00 12/22/16 12/23/16 12/24/16 05:59 05:59 05:59 Intake Total 850 975 505 Output Total 1000 954 Balance -150 21 505 - Pending Discharge Pending Discharge Within 24 Hours: No Pending Discharge Within 48 Hours: No Physical Exam - Physical Exam General Appearance: alert, no apparent distress Neck: supple Respiratory: lungs clear Cardiac/Chest: regular rate, rhythm Abdomen: normal bowel sounds, non-tender, soft Skin: other (PEG site with modest erythema, bumper loosened) Neuro/Psych: alert, normal mood/affect, No speech abnormalities ICD10 Worksheet Patient Problems: Problems Problem Status Onset Orthostatic hypotension Acute Altered mental state Acute Ataxia Acute UTI (urinary tract infection) Acute
[2016-12-23] MEDS: ENOXAPARIN 40 MG/0.4 ML SYR SC SCH (09:26)
[2016-12-23] MEDS: BRIMONIDINE 0.2% 5 ML OPHT.BTL EACHEYE SCH ×2 (10:35→20:47)
[2016-12-23] MEDS: DORZOLAMIDE/TIMOLOL 10 ML OPHT.BTL EACHEYE SCH ×2 (10:37→20:46)
[2016-12-23] MEDS: NYSTATIN 15 GM OINTMENT TP SCH ×2 (10:40→20:48)
[2016-12-23] MEDS: BACITRACIN OINTMENT 1 PACKET TP SCH ×2 (12:43→20:42)
[2016-12-23] MEDS: ATORVASTATIN CALCIUM 20 MG TAB TUBE SCH (17:00)
[2016-12-23] MEDS: MELATONIN 3 MG TAB TUBE SCH (20:42)
[2016-12-23] MEDS: LATANOPROST 0.005% 2.5 ML OPHT DROPS EACHEYE SCH (20:46)
--- NOTE | 2016-12-24 08:50 | SOAPPROG ---
SOAP Progress Note Assessment/Plan: Right handed 85 year old man with recent diagnosis of Parkinsonism (~1month prior to acute hospitalization) bacterial pneumonia and empyema necessitating a VATS decortication (Dr. Camilo Steele) on 11/17 with severe oropharyngeal dysphagia s/p PEG placement. * Debility following prolonged hospitalization: Initial FIM 54 on 12/11/16; improved to 69 on 12/18/16. Walked with shuffling gait 300' CGA FWW or no device. Set-up and supervision for ADLs, except min to mod A for lower body dressing. Retropulsive and fatigues easily. Motor planning deficit, not safe to ambulate independently. Can lose track mid-task, does not retain strategies for safety. Continue physical and occupational therapy to optimize functional status and mobility. * Cog impairments: Deficits to att'n, exec fn, memory. SLUMS ; was 2 years ago. Repeat SLUM 12/19/16. Continue FEEDER CATCHER TOBACCO. * Severe Dysphagia: NPO with TFs per PEG (currently Jevity 55cc continuous, RD c /s), FEEDER CATCHER TOBACCO. Cleared for water protocol 12/14/16. Motor planning deficit affects swallowing; may limit benefit of E-stim. Continue FEEDER CATCHER TOBACCO. * Strep Intermedius pneumonia/possible endocarditis and empyema s/p VATS decortication: satting well on RA, ceftriaxone completed 12/16. * Increased confusion? CBC with leukocytosis, CMP with minimal hyponatremia; UA w/out infection. * Hyponatremia; cautious re dehydration eduarda with orthostatic hypotension. Replace free water flushes with NS. Salt tablets BID. Resolved 12/22/16. * Fatigue. Labs 12/14/15 with slightly worse anemia, improved albumin, mild hyponatremia, TSH wnl. Has orthostatic hypotension. * Orthostatic hypotension: no HR response, c/w autonomic dysfn with Parkinson' s. D/C'd doxazosin 12/15/16. Asymptomatic but continues orthostatic. * HypoNa 12/14/16, mild, U and S osm, serum uric acid, C/W SIADH. Resolved after reduced water flush after TF; recurrent 12/19/16. Start NaCL supplement 1000 BID; replace free water with NS flush between tube feedings. Recheck orthostatics are borderline positive after NaCl supplementation. Asymptomatic * Parkinsonism with dementia features: cont. home Sinemet TID and Aricept * Bradycardia and h/o non-sustained V-tach. B-mindy contraindicated due to bradycardia. Monitor for symptoms. * BPH: cont finasteride 5 daily. PVR by bladder scan 75 cc. Continue to monitor PVR without doxazosin; more selective alpha blockers cannot be administered by tube. * Perineal Fungal rash: improved with BID Nystatin * Excoriated back rash: reports this is chronic but unclear etiology, trial cortisone cream for pruritis ->improved symptoms; d/c 12/21/16 per his request. * Anemia: likely post-op, improving at OSH; mild decline in H/H. Retics appropriately high, mild iron deficiency. Start iron supplement; stool hemoccult neg. Improving on labs 12/19/16. * HTN/Dyslipidemia: Observe BP off doxazosin, continue atorvastatin (home was on niacin and possibly fish oil but difficult with PEG, will hold to outpt f/u with pcp). BP moderately elevated but antihypertensive contraindicated with orthostatic hypotension * Glaucoma: cont. Cosopt BID, latanoprost HS; add brimonidine brought from home. Prophylaxis-> DVT, on LMWH. GI, on ranitidine BID FULL CODE, this was discussed with pt and on admit and info packet given to ensure documentation of wishes and help understanding of code process Will need 24 hour supervision, versus discharge to [facility]. has dementia also. Discharge planned for 12/28/16. F/U: Dr. James (ID) in 3-[address] Steele (Surgery) in 3 weeks Subjective: No events. No complaints this a.m. Denies pain,lightheadedness. Sleeping well. Objective: Vital Signs Temp Pulse Resp BP Pulse Ox 36.9 C 58 L 16 160/66 H 93 12/24/16 06:14 12/24/16 06:14 12/24/16 06:14 12/24/16 06:14 12/24/16 06:14 Laboratory Results 12/19/16 16:00 12/22/16 06:00 12/23/16 12/24/16 12/25/16 05:59 05:59 05:59 Intake Total 975 8890 Output Total 954 450 50 Balance 21 1430 -50 - Pending Discharge Pending Discharge Within 24 Hours: No Pending Discharge Within 48 Hours: No Physical Exam - Physical Exam General Appearance: alert, no apparent distress Neck: supple Respiratory: lungs clear, normal breath sounds Cardiac/Chest: regular rate, rhythm (slightly jero but regular) Abdomen: non-tender, soft Skin: warm/dry Neuro/Psych: alert, normal mood/affect ICD10 Worksheet Patient Problems: Problems Problem Status Onset Orthostatic hypotension Acute Altered mental state Acute Ataxia Acute UTI (urinary tract infection) Acute
[2016-12-24] MEDS: SODIUM CHLORIDE 1,000 MG TAB TUBE SCH ×2 (09:40→17:06)
[2016-12-24] MEDS: FERROUS SULFATE 300 MG/5 ML UD CUP PO SCH (09:40)
[2016-12-24] MEDS: MULTIVITAMINS 5 ML UDL TUBE SCH (09:40)
[2016-12-24] MEDS: FINASTERIDE 5 MG TAB TUBE SCH (09:40)
[2016-12-24] MEDS: DONEPEZIL HCL 5 MG TAB TUBE SCH (09:40)
[2016-12-24] MEDS: CARBIDOPA/LEVODOPA 25 MG/100 MG TAB TUBE SCH ×3 (09:40→20:32)
[2016-12-24] MEDS: ASCORBIC ACID 500 MG TAB TUBE SCH (09:40)
[2016-12-24] MEDS: ASPIRIN 81 MG CHEWABLE TAB TUBE SCH (09:40)
[2016-12-24] MEDS: ENOXAPARIN 40 MG/0.4 ML SYR SC SCH (09:41)
[2016-12-24] MEDS: DORZOLAMIDE/TIMOLOL 10 ML OPHT.BTL EACHEYE SCH ×2 (09:42→20:31)
[2016-12-24] MEDS: BRIMONIDINE 0.2% 5 ML OPHT.BTL EACHEYE SCH ×2 (09:43→20:31)
[2016-12-24] MEDS: BACITRACIN OINTMENT 1 PACKET TP SCH ×2 (09:45→20:32)
[2016-12-24] MEDS: NYSTATIN 15 GM OINTMENT TP SCH ×2 (09:45→20:32)
[2016-12-24] MEDS: ATORVASTATIN CALCIUM 20 MG TAB TUBE SCH (17:06)
[2016-12-24] MEDS: LATANOPROST 0.005% 2.5 ML OPHT DROPS EACHEYE SCH (20:31)
[2016-12-24] MEDS: MELATONIN 3 MG TAB TUBE SCH (20:32)
[2016-12-25] MEDS: ENOXAPARIN 40 MG/0.4 ML SYR SC SCH (07:33)
[2016-12-25] MEDS: CARBIDOPA/LEVODOPA 25 MG/100 MG TAB TUBE SCH ×3 (07:34→21:11)
[2016-12-25] MEDS: ASPIRIN 81 MG CHEWABLE TAB TUBE SCH (07:34)
[2016-12-25] MEDS: DONEPEZIL HCL 5 MG TAB TUBE SCH (07:34)
[2016-12-25] MEDS: FERROUS SULFATE 300 MG/5 ML UD CUP PO SCH (07:34)
[2016-12-25] MEDS: ASCORBIC ACID 500 MG TAB TUBE SCH (07:34)
[2016-12-25] MEDS: FINASTERIDE 5 MG TAB TUBE SCH (07:34)
[2016-12-25] MEDS: MULTIVITAMINS 5 ML UDL TUBE SCH (07:34)
[2016-12-25] MEDS: BACITRACIN OINTMENT 1 PACKET TP SCH ×2 (07:35→21:12)
[2016-12-25] MEDS: SODIUM CHLORIDE 1,000 MG TAB TUBE SCH ×2 (07:35→17:18)
[2016-12-25] MEDS: BRIMONIDINE 0.2% 5 ML OPHT.BTL EACHEYE SCH ×2 (07:48→21:10)
[2016-12-25] MEDS: NYSTATIN 15 GM OINTMENT TP SCH ×2 (07:48→21:10)
[2016-12-25] MEDS: DORZOLAMIDE/TIMOLOL 10 ML OPHT.BTL EACHEYE SCH ×2 (07:49→21:10)
--- NOTE | 2016-12-25 10:55 | SOAPPROG ---
SOAP Progress Note Assessment/Plan: Assessment: Right handed 85 year old man with recent diagnosis of Parkinsonism (~1month prior to acute hospitalization) bacterial pneumonia and empyema necessitating a VATS decortication (Dr. Camilo Steele) on 11/17 with severe oropharyngeal dysphagia s/p PEG placement. * Debility following prolonged hospitalization: Initial FIM 54 on 12/11/16; improved to 69 on 12/18/16; to 76 on 12/25/16. Walked with shuffling gait 300' CGA FWW or no device. Set-up and supervision for ADLs, except min to mod A for lower body dressing. Motor planning deficit, not safe to ambulate independently. Can lose track mid-task, does not retain strategies for safety. Continues with urinary incontinence despite times voiding Q 2 hr, and unable to do his own sascha-care. Continue physical and occupational therapy to optimize functional status and mobility. * Cog impairments: Deficits to att'n, exec fn, memory. SLUMS ; was 2 years ago. Repeat SLUM 12/19/16. Continue INTELLIGENCE AGENT. * Severe Dysphagia: NPO with TFs per PEG (currently Jevity 55cc continuous, RD c /s), INTELLIGENCE AGENT. Cleared for water protocol 12/14/16. Motor planning deficit affects swallowing. Making progress with E-stim; may be able t start PO feeding in 1 - 2 weeks. Continue INTELLIGENCE AGENT. * Strep Intermedius pneumonia/possible endocarditis and empyema s/p VATS decortication: satting well on RA, ceftriaxone completed 12/16. * Increased confusion? CBC with leukocytosis, CMP with minimal hyponatremia; UA w/out infection. * Hyponatremia; cautious re dehydration eduarda with orthostatic hypotension. Replace free water flushes with NS. Salt tablets BID. Resolved 12/22/16. * Fatigue. Labs 12/14/15 with slightly worse anemia, improved albumin, mild hyponatremia, TSH wnl. Has orthostatic hypotension. * Orthostatic hypotension: no HR response, c/w autonomic dysfn with Parkinson' s. D/C'd doxazosin 12/15/16. Asymptomatic but continues orthostatic. * HypoNa 12/14/16, mild, U and S osm, serum uric acid, C/W SIADH. Resolved after reduced water flush after TF; recurrent 12/19/16. Start NaCL supplement 1000 BID; replace free water with NS flush between tube feedings. Recheck orthostatics after NaCl supplementation. * Parkinsonism with dementia features: cont. home Sinemet TID and Aricept * Bradycardia and h/o non-sustained V-tach. B-mindy contraindicated due to bradycardia. Monitor for symptoms. * BPH: cont finasteride 5 daily. PVR by bladder scan 75 cc. Continue to monitor PVR without doxazosin; more selective alpha blockers cannot be administered by tube. * Perineal Fungal rash: improved with BID Nystatin * Excoriated back rash: reports this is chronic but unclear etiology, trial cortisone cream for pruritis ->improved symptoms; d/c 12/21/16 per his request. * Anemia: likely post-op, improving at OSH; mild decline in H/H. Retics appropriately high, mild iron deficiency. Start iron supplement; stool hemoccult neg. Improving on labs 12/19/16. * HTN/Dyslipidemia: Observe BP off doxazosin, continue atorvastatin (home was on niacin and possibly fish oil but difficult with PEG, will hold to outpt f/u with pcp). BP moderately elevated but antihypertensive contraindicated with orthostatic hypotension * Glaucoma: cont. Cosopt BID, latanoprost HS; add brimonidine brought from home. Prophylaxis-> DVT, on LMWH. GI, on ranitidine BID FULL CODE, this was discussed with pt and on admit and info packet given to ensure documentation of wishes and help understanding of code process Attended staffing, 15 min. D/W case mgmt, nursing, PT, OT, INTELLIGENCE AGENT. Will need 24 hour supervision; has dementia also. Plan for 1 - 2 weeks more in rehabilitation. Repeat VFSS 12/28/16 and repeat staffing 12/29/16. Likely discharge to SNF 01/02/17. F/U: Dr. James (ID) in 3-[address] Steele (Surgery) in 3 weeks 12/25/16 12:05 Objective: Vital Signs Temp Pulse Resp BP Pulse Ox 37.3 C 60 16 104/73 91 L 12/25/16 06:39 12/25/16 06:39 12/25/16 06:39 12/25/16 06:39 12/25/16 06:39 Laboratory Results 12/19/16 16:00 12/22/16 06:00 12/24/16 12/25/16 12/26/16 05:59 05:59 05:59 Intake Total 1880 2100 Output Total 450 325 Balance 1430 1775 - Time Spent With Patient Time Spent With Patient: Greater than 35 minutes floor time today, including more than 50% of time incoordination of care during staffing meeting, and counseling patient. ICD10 Worksheet Patient Problems: Problems Problem Status Onset Orthostatic hypotension Acute Altered mental state Acute Ataxia Acute UTI (urinary tract infection) Acute
[2016-12-25] MEDS: ATORVASTATIN CALCIUM 20 MG TAB TUBE SCH (17:18)
[2016-12-25] MEDS: LATANOPROST 0.005% 2.5 ML OPHT DROPS EACHEYE SCH (21:09)
[2016-12-25] MEDS: MELATONIN 3 MG TAB TUBE SCH (21:11)
[2016-12-26] MEDS: ASPIRIN 81 MG CHEWABLE TAB TUBE SCH (08:03)
[2016-12-26] MEDS: SODIUM CHLORIDE 1,000 MG TAB TUBE SCH ×2 (08:03→16:27)
[2016-12-26] MEDS: ASCORBIC ACID 500 MG TAB TUBE SCH (08:03)
[2016-12-26] MEDS: ENOXAPARIN 40 MG/0.4 ML SYR SC SCH (08:03)
[2016-12-26] MEDS: CARBIDOPA/LEVODOPA 25 MG/100 MG TAB TUBE SCH ×3 (08:03→23:38)
[2016-12-26] MEDS: BACITRACIN OINTMENT 1 PACKET TP SCH ×2 (08:03→20:09)
[2016-12-26] MEDS: FINASTERIDE 5 MG TAB TUBE SCH (08:03)
[2016-12-26] MEDS: BRIMONIDINE 0.2% 5 ML OPHT.BTL EACHEYE SCH ×2 (08:04→20:10)
[2016-12-26] MEDS: DONEPEZIL HCL 5 MG TAB TUBE SCH (08:04)
[2016-12-26] MEDS: NYSTATIN 15 GM OINTMENT TP SCH ×2 (08:05→20:09)
[2016-12-26] MEDS: DORZOLAMIDE/TIMOLOL 10 ML OPHT.BTL EACHEYE SCH ×2 (08:05→20:09)
[2016-12-26] MEDS: FERROUS SULFATE 300 MG/5 ML UD CUP PO SCH (08:07)
[2016-12-26] MEDS: MULTIVITAMINS 5 ML UDL TUBE SCH (08:07)
--- NOTE | 2016-12-26 13:30 | SOAPPROG ---
SOAP Progress Note Assessment/Plan: Assessment: Right handed 85 year old man with recent diagnosis of Parkinsonism (~1month prior to acute hospitalization) bacterial pneumonia and empyema necessitating a VATS decortication (Dr. Camilo Steele) on 11/17 with severe oropharyngeal dysphagia s/p PEG placement. * Debility following prolonged hospitalization: Initial FIM 54 on 12/11/16; improved to 69 on 12/18/16; to 76 on 12/25/16. Walked with shuffling gait 300' CGA FWW or no device. Set-up and supervision for ADLs, except min to mod A for lower body dressing. Motor planning deficit, not safe to ambulate independently. Can lose track mid-task, does not retain strategies for safety. Continues with urinary incontinence despite timed voiding Q 2 hr, and unable to do his own sascha-care. Continue physical and occupational therapy to optimize functional status and mobility. * Cog impairments: Deficits to att'n, exec fn, memory. SLUMS ; was 2 years ago. Repeat SLUM 12/19/16. Continue BLACK OFF WORKER. * Severe Dysphagia: NPO with TFs per PEG (currently Jevity 55cc continuous, RD c /s), BLACK OFF WORKER. Cleared for water protocol 12/14/16. Motor planning deficit affects swallowing. Making progress with E-stim; may be able t start PO feeding in 1 - 2 weeks. VFSS on 12/29/16. Continue BLACK OFF WORKER. Chronic/stable conditions: * Urinary incontinence. Records reviewed. No NPH on repeat head CT and MRI. No significant L-spine disease on MRI. UA normal, PVR low. * Strep Intermedius pneumonia/possible endocarditis and empyema s/p VATS decortication: satting well on RA, ceftriaxone completed 12/16. * Increased confusion? CBC with leukocytosis, CMP with minimal hyponatremia; UA w/out infection. * Fatigue. Labs 12/14/15 with slightly worse anemia, improved albumin, mild hyponatremia, TSH wnl. Has orthostatic hypotension. * Orthostatic hypotension: no HR response, c/w autonomic dysfn with Parkinson' s. D/C'd doxazosin 12/15/16. Asymptomatic but continues orthostatic. * HypoNa 12/14/16, mild, U and S osm, serum uric acid, C/W SIADH. Resolved after reduced water flush after TF; recurrent 12/19/16. Start NaCL supplement 1000 BID; replace free water with NS flush between tube feedings. Resolved on labs 12/22/16. * Parkinsonism with dementia features: cont. home Sinemet TID and Aricept * Bradycardia and h/o non-sustained V-tach. B-mindy contraindicated due to bradycardia. Monitor for symptoms. * BPH: cont finasteride 5 daily. PVR by bladder scan 75 cc. Continue to monitor PVR without doxazosin; more selective alpha blockers cannot be administered by tube. * Perineal Fungal rash: improved with BID Nystatin * Excoriated back rash: reports this is chronic but unclear etiology, trial cortisone cream for pruritis ->improved symptoms; d/c 12/21/16 per his request. * Anemia: likely post-op, improving at OSH; mild decline in H/H. Retics appropriately high, mild iron deficiency. Start iron supplement; stool hemoccult neg. Improving on labs 12/19/16. * HTN/Dyslipidemia: Observe BP off doxazosin, continue atorvastatin (home was on niacin and possibly fish oil but difficult with PEG, will hold to outpt f/u with pcp). BP moderately elevated but antihypertensive contraindicated with orthostatic hypotension * Glaucoma: cont. Cosopt BID, latanoprost HS; add brimonidine brought from home. Prophylaxis-> DVT, on LMWH. GI, on ranitidine BID FULL CODE, this was discussed with pt and on admit and info packet given to ensure documentation of wishes and help understanding of code process Will need 24 hour supervision; has dementia also. Plan for 1 - 2 weeks more in rehabilitation. Repeat VFSS 12/28/16 and repeat staffing 12/29/16. Likely discharge to SNF 01/02/17. F/U: Dr. James (ID) in 3-[address] Steele (Surgery) in 3 weeks 12/26/16 13:24 Subjective: No complaints. Sleeps well. No dyspnea/cough, f/c. Objective: Vital Signs Temp Pulse Resp BP Pulse Ox 36.2 C 52 L 16 152/76 H 92 12/26/16 05:30 12/26/16 05:30 12/26/16 05:30 12/26/16 05:30 12/26/16 05:30 Laboratory Results 12/19/16 16:00 12/22/16 06:00 12/25/16 12/26/16 12/27/16 05:59 05:59 05:59 Intake Total 2100 2000 Output Total 325 200 250 Balance 1775 1800 -250 Physical Exam - Physical Exam General Appearance: WD/WN, alert, no apparent distress Respiratory: No respiratory distress, No accessory muscle use Skin: normal color, warm/dry, other (Wounds X 2 R thorax at chest tube vs thorascopy site. Eschar resolved; sutured visible. Mild surrounding erythema.) Neuro/Psych: no motor/sensory deficits, alert, normal mood/affect, oriented x 3 ICD10 Worksheet Patient Problems: Problems Problem Status Onset Orthostatic hypotension Acute Altered mental state Acute Ataxia Acute UTI (urinary tract infection) Acute
[2016-12-26] MEDS: ATORVASTATIN CALCIUM 20 MG TAB TUBE SCH (16:27)
[2016-12-26] MEDS: MELATONIN 3 MG TAB TUBE SCH (20:09)
[2016-12-26] MEDS: LATANOPROST 0.005% 2.5 ML OPHT DROPS EACHEYE SCH (20:10)
[2016-12-27] MEDS: SODIUM CHLORIDE 1,000 MG TAB TUBE SCH ×2 (08:49→17:37)
[2016-12-27] MEDS: DONEPEZIL HCL 5 MG TAB TUBE SCH (08:49)
[2016-12-27] MEDS: MULTIVITAMINS 5 ML UDL TUBE SCH (08:49)
[2016-12-27] MEDS: FINASTERIDE 5 MG TAB TUBE SCH (08:49)
[2016-12-27] MEDS: CARBIDOPA/LEVODOPA 25 MG/100 MG TAB TUBE SCH ×3 (08:49→21:44)
[2016-12-27] MEDS: FERROUS SULFATE 300 MG/5 ML UD CUP PO SCH (08:49)
[2016-12-27] MEDS: ASPIRIN 81 MG CHEWABLE TAB TUBE SCH (08:50)
[2016-12-27] MEDS: ASCORBIC ACID 500 MG TAB TUBE SCH (08:50)
[2016-12-27] MEDS: ENOXAPARIN 40 MG/0.4 ML SYR SC SCH (08:50)
[2016-12-27] MEDS: BACITRACIN OINTMENT 1 PACKET TP SCH ×2 (08:50→21:46)
[2016-12-27] MEDS: BRIMONIDINE 0.2% 5 ML OPHT.BTL EACHEYE SCH ×2 (08:51→21:45)
[2016-12-27] MEDS: NYSTATIN 15 GM OINTMENT TP SCH ×2 (08:52→21:45)
[2016-12-27] MEDS: DORZOLAMIDE/TIMOLOL 10 ML OPHT.BTL EACHEYE SCH ×2 (08:52→21:45)
--- NOTE | 2016-12-27 14:04 | SOAPPROG ---
SOAP Progress Note Assessment/Plan: Assessment: Right handed 85 year old man with recent diagnosis of Parkinsonism (~1month prior to acute hospitalization) bacterial pneumonia and empyema necessitating a VATS decortication (Dr. Camilo Steele) on 11/17 with severe oropharyngeal dysphagia s/p PEG placement. * Debility following prolonged hospitalization: Initial FIM 54 on 12/11/16; improved to 69 on 12/18/16; to 76 on 12/25/16. Walked with shuffling gait 300' CGA FWW or no device. Set-up and supervision for ADLs, except min to mod A for lower body dressing. Motor planning deficit, not safe to ambulate independently. Can lose track mid-task, does not retain strategies for safety. Continues with urinary incontinence despite timed voiding Q 2 hr, and unable to do his own sascha-care. Continue physical and occupational therapy to optimize functional status and mobility. * Cog impairments: Deficits to att'n, exec fn, memory. SLUMS ; was 2 years ago. Repeat SLUM 12/19/16. Continue AUTO MECHANICS INSTRUCTOR. * Severe Dysphagia: NPO with TFs per PEG (currently Jevity 55cc continuous, RD c /s), AUTO MECHANICS INSTRUCTOR. Cleared for water protocol 12/14/16. Motor planning deficit affects swallowing. Making progress with E-stim; may be able t start PO feeding in 1 - 2 weeks. VFSS on 12/29/16. Continue AUTO MECHANICS INSTRUCTOR. * Urinary incontinence. Records reviewed. No NPH on repeat head CT and MRI. No significant L-spine disease on MRI. UA normal, PVR low. Adverse effect of donepezil? Tiral of discontinuation; start memantine, beginning 12/28/16. Nursing to observ efor improvement in incontinence; AUTO MECHANICS INSTRUCTOR to observe for change in cognition/memory. Chronic/stable conditions: * Strep Intermedius pneumonia/possible endocarditis and empyema s/p VATS decortication: satting well on RA, ceftriaxone completed 12/16. * Increased confusion? CBC with leukocytosis, CMP with minimal hyponatremia; UA w/out infection. * Fatigue. Labs 12/14/15 with slightly worse anemia, improved albumin, mild hyponatremia, TSH wnl. Has orthostatic hypotension. * Orthostatic hypotension: no HR response, c/w autonomic dysfn with Parkinson' s. D/C'd doxazosin 12/15/16. Asymptomatic but continues orthostatic. * HypoNa 12/14/16, mild, U and S osm, serum uric acid, C/W SIADH. Resolved after reduced water flush after TF; recurrent 12/19/16. Start NaCL supplement 1000 BID; replace free water with NS flush between tube feedings. Resolved on labs 12/22/16. * Parkinsonism with dementia features: cont. home Sinemet TID and Aricept * Bradycardia and h/o non-sustained V-tach. B-mindy contraindicated due to bradycardia. Monitor for symptoms. * BPH: cont finasteride 5 daily. PVR by bladder scan 75 cc. Continue to monitor PVR without doxazosin; more selective alpha blockers cannot be administered by tube. * Perineal Fungal rash: improved with BID Nystatin * Excoriated back rash: reports this is chronic but unclear etiology, trial cortisone cream for pruritis ->improved symptoms; d/c 12/21/16 per his request. * Anemia: likely post-op, improving at OSH; mild decline in H/H. Retics appropriately high, mild iron deficiency. Start iron supplement; stool hemoccult neg. Improving on labs 12/19/16. * HTN/Dyslipidemia: Observe BP off doxazosin, continue atorvastatin (home was on niacin and possibly fish oil but difficult with PEG, will hold to outpt f/u with pcp). BP moderately elevated but antihypertensive contraindicated with orthostatic hypotension * Glaucoma: cont. Cosopt BID, latanoprost HS; add brimonidine brought from home. Prophylaxis-> Mobility much improved; will d/c LMWH starting 12/28/16. FULL CODE, this was discussed with pt and on admit and info packet given to ensure documentation of wishes and help understanding of code process Will need 24 hour supervision; has dementia also. Plan for 1 - 2 weeks more in rehabilitation. Repeat VFSS 12/28/16 and repeat staffing 12/29/16. Likely discharge to SNF 01/02/17. F/U: Dr. James (ID) in 3-[address] Steele (Surgery) in 3 weeks 12/27/16 14:16 Subjective: No complaints. Sleeping well. No pain over ribs where sutures were removed yesterday. Still with urinary incontinence. Objective: Vital Signs Temp Pulse Resp BP Pulse Ox 36.7 C 52 L 16 158/73 H 91 L 12/27/16 06:31 12/27/16 05:09 12/26/16 20:00 12/27/16 05:09 12/27/16 05:09 Laboratory Results 12/19/16 16:00 12/22/16 06:00 12/26/16 12/27/16 12/28/16 05:59 05:59 05:59 Intake Total 1999 1290 565 Output Total 200 450 50 Balance 1800 840 515 Physical Exam - Physical Exam General Appearance: WD/WN, alert, no apparent distress Respiratory: No respiratory distress, No accessory muscle use Skin: normal color, warm/dry, other (erythema R lateral thorax at two chest tube or thoracostomy sites approx 2 cm around each, NT, no discharge, no edema or induration) ICD10 Worksheet Patient Problems: Problems Problem Status Onset Orthostatic hypotension Acute Altered mental state Acute Ataxia Acute UTI (urinary tract infection) Acute
[2016-12-27] MEDS: ATORVASTATIN CALCIUM 20 MG TAB TUBE SCH (17:38)
[2016-12-27] MEDS: MELATONIN 3 MG TAB TUBE SCH (21:44)
[2016-12-27] MEDS: LATANOPROST 0.005% 2.5 ML OPHT DROPS EACHEYE SCH (21:45)
[2016-12-28] MEDS: SODIUM CHLORIDE 1,000 MG TAB TUBE SCH (09:39)
[2016-12-28] MEDS: MULTIVITAMINS 5 ML UDL TUBE SCH (09:40)
[2016-12-28] MEDS: ASCORBIC ACID 500 MG TAB TUBE SCH (09:40)
[2016-12-28] MEDS: FINASTERIDE 5 MG TAB TUBE SCH (09:40)
[2016-12-28] MEDS: CARBIDOPA/LEVODOPA 25 MG/100 MG TAB TUBE SCH ×3 (09:40→21:30)
[2016-12-28] MEDS: BACITRACIN OINTMENT 1 PACKET TP SCH (09:40)
[2016-12-28] MEDS: ASPIRIN 81 MG CHEWABLE TAB TUBE SCH (09:40)
[2016-12-28] MEDS: FERROUS SULFATE 300 MG/5 ML UD CUP PO SCH (09:40)
[2016-12-28] MEDS: MEMANTINE HCL 5 MG TAB TUBE SCH (09:40)
[2016-12-28] MEDS: BRIMONIDINE 0.2% 5 ML OPHT.BTL EACHEYE SCH ×2 (09:42→21:30)
[2016-12-28] MEDS: NYSTATIN 15 GM OINTMENT TP SCH ×2 (09:42→21:31)
[2016-12-28] MEDS: DORZOLAMIDE/TIMOLOL 10 ML OPHT.BTL EACHEYE SCH ×2 (09:43→21:30)
--- NOTE | 2016-12-28 11:33 | SOAPPROG ---
SOAP Progress Note Assessment/Plan: Assessment: Right handed 85 year old man with recent diagnosis of Parkinsonism (~1month prior to acute hospitalization) bacterial pneumonia and empyema necessitating a VATS decortication (Dr. Camilo Steele) on 11/17 with severe oropharyngeal dysphagia s/p PEG placement. * Debility following prolonged hospitalization: Initial FIM 54 on 12/11/16; improved to 69 on 12/18/16; to 76 on 12/25/16. Walked with shuffling gait 300' CGA FWW or no device. Set-up and supervision for ADLs, except min to mod A for lower body dressing. Motor planning deficit, not safe to ambulate independently. Can lose track mid-task, does not retain strategies for safety. Continues with urinary incontinence despite timed voiding Q 2 hr, and unable to do his own sascha-care. Continue physical and occupational therapy to optimize functional status and mobility. * Cog impairments: Deficits to att'n, exec fn, memory. SLUMS ; was 2 years ago. Repeat SLUM 12/19/16. Continue PATIENT CARE TECHNICIAN INSTRUCTOR. * Severe Dysphagia: NPO with TFs per PEG (currently Jevity 55cc continuous, RD c /s), PATIENT CARE TECHNICIAN INSTRUCTOR. Cleared for water protocol 12/14/16. Motor planning deficit affects swallowing. Making progress with E-stim; may be able t start PO feeding in 1 - 2 weeks. VFSS on 12/29/16. Continue PATIENT CARE TECHNICIAN INSTRUCTOR. * Urinary incontinence. Records reviewed. No NPH on repeat head CT and MRI. No significant L-spine disease on MRI. UA normal, PVR low. Adverse effect of donepezil? Trial of discontinuation; start memantine, beginning today 12/28/16. Nursing to observe for improvement in incontinence; PATIENT CARE TECHNICIAN INSTRUCTOR to observe for change in cognition/memory. * Orthostatic hypotension: no HR response, c/w autonomic dysfn with Parkinson' s. D/C'd doxazosin 12/15/16. Non-orthostatic with elevated BP 12/27/16. Reduce NaCl from 1000 mg BID to QD starting 12/28/16. Continue to monitor. * HypoNa 12/14/16, mild, U and S osm, serum uric acid, C/W SIADH. Resolved after reduced water flush after TF; recurrent 12/19/16. Start NaCL supplement 1000 BID; replace free water with NS flush between tube feedings. Resolved on labs 12/22/16. Recheck 12/29/16 with reduced NaCl. Chronic/stable conditions: * Strep Intermedius pneumonia/possible endocarditis and empyema s/p VATS decortication: satting well on RA, ceftriaxone completed 12/16. * Increased confusion? CBC with leukocytosis, CMP with minimal hyponatremia; UA w/out infection. * Fatigue. Labs 12/14/15 with slightly worse anemia, improved albumin, mild hyponatremia, TSH wnl. Has orthostatic hypotension. * Parkinsonism with dementia features: cont. home Sinemet TID and Aricept * Bradycardia and h/o non-sustained V-tach. B-mindy contraindicated due to bradycardia. Monitor for symptoms. * BPH: cont finasteride 5 daily. PVR by bladder scan 75 cc. Continue to monitor PVR without doxazosin; more selective alpha blockers cannot be administered by tube. * Perineal Fungal rash: improved with BID Nystatin * Excoriated back rash: reports this is chronic but unclear etiology, trial cortisone cream for pruritis ->improved symptoms; d/c 12/21/16 per his request. * Anemia: likely post-op, improving at OSH; mild decline in H/H. Retics appropriately high, mild iron deficiency. Start iron supplement; stool hemoccult neg. Improving on labs 12/19/16. * Dyslipidemia: continue atorvastatin (home was on niacin and possibly fish oil but difficult with PEG, will hold to outpt f/u with pcp). * Glaucoma: cont. Cosopt BID, latanoprost HS; add brimonidine brought from home. Prophylaxis-> Mobility much improved; will d/c LMWH starting 12/28/16. FULL CODE, this was discussed with pt and on admit and info packet given to ensure documentation of wishes and help understanding of code process Will need 24 hour supervision; has dementia also. Plan for 1 - 2 weeks more in rehabilitation. Repeat VFSS 12/28/16 and repeat staffing 12/29/16. Likely discharge to SNF 01/02/17. F/U: Dr. James (ID) in 3-[address] Steele (Surgery) in 3 weeks 12/28/16 11:29 Subjective: No complaints. Denies cough/dyspnea, F/C. Today had no donepezil; had memantine 5 mg this morning. Notes no change. Objective: Vital Signs Temp Pulse Resp BP Pulse Ox 36.7 C 68 16 168/82 H 91 L 12/28/16 06:28 12/28/16 06:28 12/28/16 06:28 12/28/16 06:28 12/28/16 06:28 Laboratory Results 12/19/16 16:00 12/22/16 06:00 12/27/16 12/28/16 12/29/16 05:59 05:59 05:59 Intake Total 1290 1465 Output Total 450 200 Balance 840 1265 Physical Exam - Physical Exam General Appearance: WD/WN, alert, no apparent distress Respiratory: No respiratory distress, No accessory muscle use Skin: normal color, warm/dry, other (Erythema R lateral thjorax at chest tube or thoracostomy sites. No discharge, induration or tenderness.) Neuro/Psych: no motor/sensory deficits, alert, normal mood/affect, oriented x 3 ICD10 Worksheet Patient Problems: Problems Problem Status Onset Orthostatic hypotension Acute Altered mental state Acute Ataxia Acute UTI (urinary tract infection) Acute
[2016-12-28] MEDS: ATORVASTATIN CALCIUM 20 MG TAB TUBE SCH (17:44)
[2016-12-28 18:26] LABS: HEMATOCRIT 30.3 % (40.0-51.0); HEMOGLOBIN 9.2 g/dL (13.7-17.5); MEAN CELL HEMOGLOBIN 25.9 pg (27.9-34.1); MEAN CELL HEMOGLOBIN CONCENTR. 30.4 g/dL (32.4-36.7); MEAN CELL VOLUME 85.4 fL (81.5-99.8); RED BLOOD CELL COUNT 3.55 10^6/uL (4.40-6.38); RED CELL DISTRIBUTION WIDTH 16.6 % (11.5-15.2)
[2016-12-28 18:38] LABS: ANION GAP 9 mEq/L (8-16); CALCIUM 8.1 mg/dL (8.5-10.4); CARBON DIOXIDE 29 mEq/l (22-31); CHLORIDE 98 mEq/L (97-110); CREATININE 0.6 mg/dL (0.7-1.3); GLOMERULAR FILTRATION RATE > 60; GLUCOSE 85 mg/dL (70-100); POTASSIUM 4.5 mEq/L (3.5-5.2); SODIUM 136 mEq/L (134-144)
[2016-12-28] MEDS: MELATONIN 3 MG TAB TUBE SCH (21:30)
[2016-12-28] MEDS: LATANOPROST 0.005% 2.5 ML OPHT DROPS EACHEYE SCH (21:31)
[2016-12-29 08:47] LABS: % IMMATURE GRANULYOCYTES 0.7 % (0.0-1.1); ABSOLUTE IMMATURE GRANULOCYTES 0.07 10^3/uL (0.00-0.10); ADD DIFF? NO; ADD MORPH? NO; ADD SCAN? NO; ATYPICAL LYMPHOCYTE FLAG 20 (0-99); FRAGMENT RBC FLAG 20 (0-99); HEMATOCRIT 26.3 % (40.0-51.0); LEFT SHIFT FLG 10 (0-99); LIPEMIA HEMOLYSIS FLAG 80 (0-99); MEAN CELL HEMOGLOBIN 25.2 pg (27.9-34.1); MEAN CELL HEMOGLOBIN CONCENTR. 30.4 g/dL (32.4-36.7); MEAN PLATELET VOLUME 11.4 fL (8.7-11.7); PLATELET CLUMPS FLAG 0 (0-99); PLATELET COUNT 257 10^3/uL (150-400); RED BLOOD CELL COUNT 3.17 10^6/uL (4.40-6.38); RED CELL DISTRIBUTION WIDTH 16.7 % (11.5-15.2)
[2016-12-29 09:03] LABS: POTASSIUM 4.6 mEq/L (3.5-5.2)
[2016-12-29 09:04] LABS: ANION GAP 9 mEq/L (8-16); CALCIUM 7.5 mg/dL (8.5-10.4); CARBON DIOXIDE 25 mEq/l (22-31); CHLORIDE 99 mEq/L (97-110); CREATININE 0.5 mg/dL (0.7-1.3); GLOMERULAR FILTRATION RATE > 60; GLUCOSE 88 mg/dL (70-100); SODIUM 133 mEq/L (134-144)
[2016-12-29 11:25] LABS: LD, PLEURAL FLUID > 10000 IU/L
[2016-12-29] MEDS: FERROUS SULFATE 300 MG/5 ML UD CUP PO SCH (12:16)
[2016-12-29] MEDS: MULTIVITAMINS 5 ML UDL TUBE SCH (12:16)
[2016-12-29] MEDS: ASCORBIC ACID 500 MG TAB TUBE SCH (12:17)
[2016-12-29] MEDS: NYSTATIN 15 GM OINTMENT TP SCH ×2 (12:17→22:04)
[2016-12-29] MEDS: CARBIDOPA/LEVODOPA 25 MG/100 MG TAB TUBE SCH ×3 (12:17→22:02)
[2016-12-29] MEDS: SODIUM CHLORIDE 1,000 MG TAB TUBE SCH (12:17)
[2016-12-29] MEDS: MEMANTINE HCL 5 MG TAB TUBE SCH (12:17)
[2016-12-29] MEDS: ASPIRIN 81 MG CHEWABLE TAB TUBE SCH (12:17)
[2016-12-29] MEDS: BRIMONIDINE 0.2% 5 ML OPHT.BTL EACHEYE SCH ×2 (12:18→22:03)
[2016-12-29] MEDS: DORZOLAMIDE/TIMOLOL 10 ML OPHT.BTL EACHEYE SCH ×2 (12:19→22:04)
[2016-12-29] MEDS: FINASTERIDE 5 MG TAB TUBE SCH (12:20)
--- NOTE | 2016-12-29 14:55 | SOAPPROG ---
SOAP Progress Note Assessment/Plan: Assessment: Right handed 85 year old man with recent diagnosis of Parkinsonism (~1month prior to acute hospitalization) bacterial pneumonia and empyema necessitating a VATS decortication (Dr. Camilo Steele) on 11/17 with severe oropharyngeal dysphagia s/p PEG placement. Recurrent empyema based on CXR & thoracentesis findings. D/W Dr. Sullivan, ID, 12/29. Start ertapenem. Consider rehospitalization for CT imaging, possible repeat VATS. Alternately could take less aggressive approach initially with IV Abx and then with oral suppressive. * Debility following prolonged hospitalization: Initial FIM 54 on 12/11/16; improved to 69 on 12/18/16; to 76 on 12/25/16; delined to 64 as of 12/29/16; likely due to recurrent empyema. Previously was able to walk with shuffling gait 300' CGA FWW or no device. Set-up and supervision for ADLs, except min to mod A for lower body dressing. Motor planning deficit, not safe to ambulate independently. Can lose track mid-task, does not retain strategies for safety. Continues with urinary incontinence despite timed voiding Q 2 hr, and unable to do his own sascha-care. Continue physical and occupational therapy to optimize functional status and mobility. * Cog impairments: Deficits to att'n, exec fn, memory. SLUMS ; was 2 years ago. Repeat SLUM 12/19/16. Continue VEHICLE SALES PROFESSIONAL. * Severe Dysphagia: NPO with TFs per PEG (currently Jevity 55cc continuous, RD c /s), VEHICLE SALES PROFESSIONAL. Cleared for water protocol 12/14/16. Motor planning deficit affects swallowing. Making progress with E-stim but VFSS 12/29/16 shows continued silent aspiration on honey-thick liquids. Continue NPO, continue VEHICLE SALES PROFESSIONAL. * Urinary incontinence. Records reviewed. No NPH on repeat head CT and MRI. No significant L-spine disease on MRI. UA normal, PVR low. Adverse effect of donepezil? Trial of discontinuation; start memantine, beginning today 12/28/16. Nursing to observe for improvement in incontinence; VEHICLE SALES PROFESSIONAL to observe for change in cognition/memory. * Orthostatic hypotension: no HR response, c/w autonomic dysfn with Parkinson' s. D/C'd doxazosin 12/15/16. Non-orthostatic with elevated BP 12/27/16. Reduce NaCl from 1000 mg BID to QD starting 12/28/16. Continue to monitor. * HypoNa 12/14/16, mild, U and S osm, serum uric acid, C/W SIADH. Resolved after reduced water flush after TF; recurrent 12/19/16. Start NaCL supplement 1000 BID; replace free water with NS flush between tube feedings. Resolved on labs 12/22/16. Recheck 12/29/16 with reduced NaCl. Chronic/stable conditions: * Fatigue. Labs 12/14/15 with slightly worse anemia, improved albumin, mild hyponatremia, TSH wnl. Has orthostatic hypotension. * Parkinsonism with dementia features: cont. home Sinemet TID and Aricept * Bradycardia and h/o non-sustained V-tach. B-mindy contraindicated due to bradycardia. Monitor for symptoms. * BPH: cont finasteride 5 daily. PVR by bladder scan 75 cc. Continue to monitor PVR without doxazosin; more selective alpha blockers cannot be administered by tube. * Perineal Fungal rash: improved with BID Nystatin * Excoriated back rash: reports this is chronic but unclear etiology, trial cortisone cream for pruritis ->improved symptoms; d/c 12/21/16 per his request. * Anemia: likely post-op, improving at OSH; mild decline in H/H. Retics appropriately high, mild iron deficiency. Start iron supplement; stool hemoccult neg. Improving on labs 12/19/16. * Dyslipidemia: continue atorvastatin (home was on niacin and possibly fish oil but difficult with PEG, will hold to outpt f/u with pcp). * Glaucoma: cont. Cosopt BID, latanoprost HS; add brimonidine brought from home. Prophylaxis-> Mobility much improved; will d/c LMWH starting 12/28/16. FULL CODE, this was discussed with pt and on admit and info packet given to ensure documentation of wishes and help understanding of code process Attended staffing, 15 min. D/W case mgmt, nursing, PT, OT, VEHICLE SALES PROFESSIONAL. Will need 24 hour supervision; has dementia also. Likely discharge to SNF 01/02/17. Meet with patient, , son, case briefer Patience Thompson, 12/29/16, 35 minutes. Discussed question of aggressive care versus palliative re empyema. Sd does not want to return to the hospital and favors antibiotics and continued rehabilitation for now. He wants an informational hospice consult to learn if he would qualify for hospice services. Dr. Sullivan, ID, will visit tomorrow 12/30/16. F/U: Dr. James (ID) in 3-[address] Steele (Surgery) in 3 weeks 12/29/16 14:56 Subjective: No acute complaints. has some fatigue after thoracentesis and VFSS this morning. Not in pain, no F/C, no cough/dyspnea. Slept well. Objective: Vital Signs Temp Pulse Resp BP Pulse Ox 36.4 C 80 16 121/80 H 98 12/29/16 12:25 12/29/16 12:25 12/29/16 12:25 12/29/16 12:25 12/29/16 12:25 Microbiology 12/29/16 10:15 Gram Stain - Final Thoracic Fluid - Aspirate Laboratory Results 12/29/16 06:00 12/29/16 06:00 12/28/16 12/29/16 12/30/16 05:59 05:59 05:59 Intake Total 1465 1050 Output Total 200 200 Balance 1265 850 - Time Spent With Patient Time Spent With Patient: Greater than 35 minutes floor time today, including more than 50% of time in coordination of care during staffing meeting, and counseling patient and family. Physical Exam - Physical Exam General Appearance: WD/WN, alert, no apparent distress Respiratory: respiratory distress, accessory muscle use, crackles (few bibasilar R > L), other (Improved breath sounds RLL), No rhonchi, No wheezing Cardiac/Chest: regular rate, rhythm, No edema Skin: normal color, warm/dry Neuro/Psych: no motor/sensory deficits, alert, normal mood/affect, other ( Perseverative) ICD10 Worksheet Patient Problems: Problems Problem Status Onset Orthostatic hypotension Acute Altered mental state Acute Ataxia Acute UTI (urinary tract infection) Acute
[2016-12-29] MEDS: ERTAPENEM 1 GM in NS 100 ML IV SCH (15:48)
[2016-12-29] MEDS: ATORVASTATIN CALCIUM 20 MG TAB TUBE SCH (17:05)
[2016-12-29] MEDS: MELATONIN 3 MG TAB TUBE SCH (22:02)
[2016-12-29] MEDS: LATANOPROST 0.005% 2.5 ML OPHT DROPS EACHEYE SCH (22:03)
[2016-12-30] MEDS: ERTAPENEM 1 GM in NS 100 ML IV SCH (07:34)
[2016-12-30] MEDS: CARBIDOPA/LEVODOPA 25 MG/100 MG TAB TUBE SCH ×3 (07:39→21:20)
[2016-12-30] MEDS: FERROUS SULFATE 300 MG/5 ML UD CUP PO SCH (07:39)
[2016-12-30] MEDS: MEMANTINE HCL 5 MG TAB TUBE SCH (07:39)
[2016-12-30] MEDS: MULTIVITAMINS 5 ML UDL TUBE SCH (07:39)
[2016-12-30] MEDS: SODIUM CHLORIDE 1,000 MG TAB TUBE SCH (07:39)
[2016-12-30] MEDS: ASPIRIN 81 MG CHEWABLE TAB TUBE SCH (07:39)
[2016-12-30] MEDS: NYSTATIN 15 GM OINTMENT TP SCH ×2 (07:40→21:21)
[2016-12-30] MEDS: FINASTERIDE 5 MG TAB TUBE SCH (07:40)
[2016-12-30] MEDS: BRIMONIDINE 0.2% 5 ML OPHT.BTL EACHEYE SCH ×2 (07:41→21:21)
[2016-12-30] MEDS: DORZOLAMIDE/TIMOLOL 10 ML OPHT.BTL EACHEYE SCH ×2 (07:41→21:21)
[2016-12-30] MEDS: ASCORBIC ACID 500 MG TAB TUBE SCH (07:42)
[2016-12-30] MEDS ORDERED: ERTAPENEM 1 GM in NS 100 ML IV SCH (09:00)
--- NOTE | 2016-12-30 12:45 | SOAPPROG ---
SOAP Progress Note Assessment/Plan: Assessment/Plan: 85 year old man with recent diagnosis of Parkinsonism (~1month prior to acute hospitalization) bacterial pneumonia and empyema necessitating a VATS decortication (Dr. Camilo Steele) on 11/17 with severe oropharyngeal dysphagia s/ p PEG placement. * Recurrent empyema based on CXR & thoracentesis findings from 12/29 (cultures pending, See gram stain results). Dr Thomason D/W Dr. Sullivan, ID, 12/29/16. Started ertapenem 1gm IV 12/29, which may be followed by oral suppressive. * Debility following prolonged hospitalization: Initial FIM 54 on 12/11/16; improved to 69 on 12/18/16; to 76 on 12/25/16; delined to 64 as of 12/29/16; likely due to recurrent empyema. Previously was able to walk with shuffling gait 300' CGA FWW or no device. Set-up and supervision for ADLs, except min to mod A for lower body dressing. Motor planning deficit, not safe to ambulate independently. Can lose track mid-task, does not retain strategies for safety. Continues with urinary incontinence despite timed voiding Q 2 hr, and unable to do his own sascha-care. Continue physical and occupational therapy to optimize functional status and mobility. * Cog impairments: Deficits to att'n, exec fn, memory. SLUMS ; was 2 years ago. Repeat SLUM 12/19/16. Continue RN FAMILY. * Severe Dysphagia: NPO with TFs per PEG (currently Jevity 55cc continuous, RD c /s), RN FAMILY. Cleared for water protocol 12/14/16. Motor planning deficit affects swallowing. Making progress with E-stim but VFSS 12/29/16 shows continued silent aspiration on honey-thick liquids. Continue NPO, continue RN FAMILY. * Urinary incontinence. Records reviewed. No NPH on repeat head CT and MRI. No significant L-spine disease on MRI. UA normal, PVR low. Adverse effect of donepezil? Trial of discontinuation; start memantine, beginning today 12/28/16. Nursing to observe for improvement in incontinence; RN FAMILY to observe for change in cognition/memory. * Orthostatic hypotension: no HR response, c/w autonomic dysfn with Parkinson' s. D/C'd doxazosin 12/15/16. Non-orthostatic with elevated BP 12/27/16. Reduce NaCl from 1000 mg BID to QD starting 12/28/16. Continue to monitor. * HypoNa 12/14/16, mild, U and S osm, serum uric acid, C/W SIADH. Resolved after reduced water flush after TF; recurrent 12/19/16. Start NaCL supplement 1000 BID; replace free water with NS flush between tube feedings. Resolved on labs 12/22/16. Recheck 12/29/16 Na 133, with reduced NaCl. Cont to monitor. * Anemia, H/H decreased on labs 12/29 8.0/26.3. Cont to monitor * Leukocytosis, improved Chronic/stable conditions: * Fatigue. Labs 12/30/15 with slightly worse anemia, Hgb 8.0. Hypoalbuminemia, mild hyponatremia, TSH wnl. Has orthostatic hypotension. * Parkinsonism with dementia features: cont. home Sinemet TID and Aricept * Bradycardia and h/o non-sustained V-tach. B-mindy contraindicated due to bradycardia. Monitor for symptoms. * BPH: cont finasteride 5 daily. PVR by bladder scan 75 cc. Continue to monitor PVR without doxazosin; more selective alpha blockers cannot be administered by tube. * Perineal Fungal rash: improved with BID Nystatin * Excoriated back rash: reports this is chronic but unclear etiology, trial cortisone cream for pruritis ->improved symptoms; d/c 12/21/16 per his request. * Anemia: likely post-op, improving at OSH; mild decline in H/H. Retics appropriately high, mild iron deficiency. Start iron supplement; stool hemoccult neg. Improving on labs 12/19/16. * Dyslipidemia: continue atorvastatin (home was on niacin and possibly fish oil but difficult with PEG, will hold to outpt f/u with pcp). * Glaucoma: cont. Cosopt BID, latanoprost HS; add brimonidine brought from home. * Prophylaxis-> Mobility much improved; will d/c LMWH starting 12/28/16. Dr. Sullivan, ID, consult pending 12/30/16. F/U Dr. Steele (Surgery) in 3 weeks Plan: Cont current treatment plan 12/30/16 12:55 12/30/16 12:59 Subjective: C/O fatigue Slept fair No sig pain No F/C/CP/SOB/N/V Disappointed that the thoracentesis did not give appreciable relief of respiratory symptoms Tolerating/compliant with NPO Objective: Vital Signs Temp Pulse Resp BP Pulse Ox 36.4 C 61 16 130/61 H 93 12/30/16 07:08 12/30/16 07:08 12/30/16 07:08 12/30/16 07:08 12/30/16 07:08 Microbiology 12/29/16 10:15 Gram Stain - Final Thoracic Fluid - Aspirate Laboratory Results 12/29/16 06:00 12/29/16 06:00 12/29/16 12/30/16 12/31/16 05:59 05:59 05:59 Intake Total 1050 1080 Output Total 200 1185 Balance 850 -105 Physical Exam - Physical Exam General Appearance: alert, no apparent distress Neck: No supple Respiratory: decreased breath sounds (R base) Cardiac/Chest: regular rate, rhythm Abdomen: normal bowel sounds, soft, other (recent G-tube), No non-tender Skin: normal color, warm/dry Neuro/Psych: alert, normal mood/affect, oriented x 3, abnormal gait, motor weakness, other (No acute changes, rigidity and hypokinesis c/w parkinsons) ICD10 Worksheet Patient Problems: Problems Problem Status Onset Orthostatic hypotension Acute Altered mental state Acute Ataxia Acute UTI (urinary tract infection) Acute
--- NOTE | 2016-12-30 16:38 | PCMIDPN ---
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 Gram stain positive for gram-positive cocci in chains and gram-negative coccobacilli. Culture showing growth of Streptococcus intermedius today. Continues to have ongoing aspiration based on swallow evaluation. Reviewed findings and plan with Dr. Thomason yesterday and family considering less aggressive approach currently with planned hospice evaluation. Based on this finding, will continue with antibiotic therapy in the form of ertapenem. Treatment option if no further surgical therapy desired would be suppressive oral antibiotic therapy with agent such as moxifloxacin; will ask lab to assess for susceptibility although initial isolate did not grow well and could not have susceptibility performed. If more aggressive therapy is desired, would include CT evaluation and surgical management which likely would necessitate thoracotomy. Time spent, greater than 35 minutes, of which greater than half was spent in education/counseling/coordination of care related to recurrent empyema. 12/30/16 16:34 12/30/16 16:42 Subjective: Well known to Infectious Disease service from prior care during hospitalization for Streptococcus intermedius empyema. Patient developed recurrent dyspnea with recurrent pleural effusion noted on chest x-ray. Underwent repeat thoracentesis yesterday with findings suggesting persistent/recurrent empyema and gram stain of fluid being positive and fluid appeared grossly purulent. Previously received 4 weeks of ceftriaxone post VATS for Streptococcus intermedius empyema. Swallow evaluation reveals ongoing aspiration. Today patient is noted by nursing staff to be much more alert and interactive. Currently not complaining of dyspnea, chest pain or cough. Asked by Dr. Thomason to re-evaluate based on these findings as outlined above. Objective: Vital Signs Temp Pulse Resp BP Pulse Ox 36.4 C 61 16 130/61 H 93 12/30/16 07:08 12/30/16 07:08 12/30/16 07:08 12/30/16 07:08 12/30/16 07:08 Microbiology 12/29/16 10:15 Gram Stain - Final Thoracic Fluid - Aspirate Laboratory Results 12/29/16 06:00 12/29/16 06:00 12/29/16 12/30/16 12/31/16 05:59 05:59 05:59 Intake Total 1050 1080 150 Output Total 200 1185 300 Balance 850 -105 -150 Ertapenem # 2 Microbiology 12/29/16 10:15 Thoracic Fluid - Aspirate Gram Stain - Final gram-positive cocci in chains, Gram-negative coccobacilli 12/29/16 10:15 Thoracic Fluid - Aspirate Body Fluid Culture - Preliminary Streptococcus Intermedius Laboratory Tests 12/29/16 12/29/16 12/29/16 06:00 06:00 10:15 WBC 9.85 H Neut % (Auto) 81.3 H Creatinine 0.5 L Pleural pH 7.0 Pleural WBC 4094 Pleural RBC [id number] Pleural Neutrophils 98 Pleural Total Protein 4.3 Pleural LDH > 48210 Pleural Glucose < 20 L - Physical Exam General Appearance: alert EENT: pharynx normal, No scleral icterus, No thrush, No conjunctival petechiae Respiratory: other (Decreased breath sounds right base) Cardiac/Chest: regular rate, rhythm, other (Erythema surrounding prior chest tube sites without drainage; appears consistent with wound healing rather than cellulitis) Abdomen: non-tender, No distended Skin: No embolic lesions Neuro/Psych: alert, other (Interacts appropriately) ICD10 Worksheet Patient Problems: Problems Problem Status Onset Orthostatic hypotension Acute Altered mental state Acute Ataxia Acute UTI (urinary tract infection) Acute
[2016-12-30] MEDS: ATORVASTATIN CALCIUM 20 MG TAB TUBE SCH (16:57)
[2016-12-30] MEDS: MELATONIN 3 MG TAB TUBE SCH (21:19)
[2016-12-30] MEDS: LATANOPROST 0.005% 2.5 ML OPHT DROPS EACHEYE SCH (21:21)
[2016-12-31] MEDS ORDERED: ERTAPENEM 1 GM in NS 100 ML IV SCH (06:00)
[2016-12-31] MEDS: CARBIDOPA/LEVODOPA 25 MG/100 MG TAB TUBE SCH (07:25)
[2016-12-31] MEDS: FINASTERIDE 5 MG TAB TUBE SCH (07:25)
[2016-12-31] MEDS: ASCORBIC ACID 500 MG TAB TUBE SCH (07:25)
[2016-12-31] MEDS: MULTIVITAMINS 5 ML UDL TUBE SCH (07:25)
[2016-12-31] MEDS: SODIUM CHLORIDE 1,000 MG TAB TUBE SCH (07:25)
[2016-12-31] MEDS: ASPIRIN 81 MG CHEWABLE TAB TUBE SCH (07:25)
[2016-12-31] MEDS: MEMANTINE HCL 5 MG TAB TUBE SCH (07:25)
[2016-12-31] MEDS: FERROUS SULFATE 300 MG/5 ML UD CUP PO SCH (07:25)
[2016-12-31] MEDS: DORZOLAMIDE/TIMOLOL 10 ML OPHT.BTL EACHEYE SCH (07:26)
[2016-12-31] MEDS: NYSTATIN 15 GM OINTMENT TP SCH (07:26)
[2016-12-31] MEDS: BRIMONIDINE 0.2% 5 ML OPHT.BTL EACHEYE SCH (07:26)
--- NOTE | 2016-12-31 13:49 | SOAPPROG ---
SOAP Progress Note Assessment/Plan: Assessment/Plan: 85 year old man with recent diagnosis of Parkinsonism (~1month prior to acute hospitalization) bacterial pneumonia and empyema necessitating a VATS decortication (Dr. Camilo Steele) on 11/17 with severe oropharyngeal dysphagia s/ p PEG placement. * Recurrent empyema based on CXR & thoracentesis findings from 12/29 (Strep Intermedious). Appreciate Dr. Sullivan (ID) input 12/30. Cont ertapenem 1gm IV ( started 12/29) followed by oral suppressive. * Debility following prolonged hospitalization: Variable energy, balance and endurance. Was able to walk with shuffling gait 300' CGA w/wo FWW. Set-up and supervision for ADLs, except min to mod A for lower body dressing. Motor planning deficit, not safe to ambulate independently. Can lose track mid-task, does not retain strategies for safety. Continue physical and occupational therapy to optimize functional status and mobility. * Cog impairments: Deficits to att'n, exec fn, memory. SLUMS ; was 2 years ago. Repeat SLUM 12/19/16. Continue COMPLEX CASE MANAGER. * Severe Dysphagia: NPO with TFs per PEG (currently Jevity 55cc continuous, RD c /s), COMPLEX CASE MANAGER. Cleared for water protocol 12/14/16. Motor planning deficit affects swallowing. Making progress with E-stim but VFSS 12/29/16 shows continued silent aspiration on honey-thick liquids. Continue NPO, continue COMPLEX CASE MANAGER. * Urinary incontinence. W/U neg; No NPH on repeat head CT and MRI. No significant L-spine disease on MRI. UA normal, PVR low. Adverse effect of donepezil? Trial of discontinuation; start memantine, beginning today 12/28/16. No benefit from timed Q2hr voids. * Orthostatic hypotension: no HR response, c/w autonomic dysfn with Parkinson' s. D/C'd doxazosin 12/15/16. Non-orthostatic with elevated BP 12/27/16. Reduce NaCl from 1000 mg BID to QD starting 12/28/16. Continue to monitor. * HypoNa 12/14/16, mild, U and S osm, serum uric acid, C/W SIADH. Resolved after reduced water flush after TF; recurrent 12/19/16. Start NaCL supplement 1000 BID; replace free water with NS flush between tube feedings. Resolved on labs 12/22/16. Recheck 12/29/16 Na 133, with reduced NaCl. Cont to monitor. * Anemia, H/H decreased on labs 12/29 8.0/26.3. Cont to monitor * Leukocytosis, improved Chronic/stable conditions: * Fatigue. Profound, multifactorial. Labs 12/30/15 with slightly worse anemia, Hgb 8.0. Hypoalbuminemia, mild hyponatremia. Has orthostatic hypotension. * Parkinsonism with dementia features: cont. home Sinemet TID and Aricept * Bradycardia and h/o non-sustained V-tach. B-mindy contraindicated due to bradycardia. Monitor for symptoms. * BPH: cont finasteride 5 daily. PVR by bladder scan 75 cc. Continue to monitor PVR without doxazosin; more selective alpha blockers cannot be administered by tube. * Perineal Fungal rash: improved with BID Nystatin * Excoriated back rash: Persists, despite treatment. reports this is chronic but unclear etiology, trial cortisone cream for pruritis ->improved symptoms; d/ c 12/21/16 per his request. * Anemia: likely post-op, further mild decline in H/H. Retics appropriately high, mild iron deficiency. Start iron supplement; stool hemoccult neg. Improving on labs 12/19/16. * Dyslipidemia: continue atorvastatin (home was on niacin and possibly fish oil but difficult with PEG, will hold to outpt f/u with pcp). * Glaucoma: cont. Cosopt BID, latanoprost HS; add brimonidine brought from home. * Prophylaxis-> Mobility much improved; will d/c LMWH starting 12/28/16. F/U Dr. Steele (Surgery) in 3 weeks Plan: Cont current treatment plan 12/31/16 13:51 Subjective: C/O fatigue no pain No F/C/CP/SOB/N/V/D On O2 slept fair participating in therapy Objective: Vital Signs Temp Pulse Resp BP Pulse Ox 36.6 C 61 16 169/80 H 97 12/30/16 20:00 12/30/16 20:00 12/30/16 20:00 12/30/16 20:00 12/30/16 20:00 Microbiology 12/29/16 10:15 Gram Stain - Final Thoracic Fluid - Aspirate Laboratory Results 12/29/16 06:00 12/29/16 06:00 12/30/16 12/31/16 01/01/17 05:59 05:59 05:59 Intake Total 1080 825 575 Output Total 118 650 75 Balance -105 175 500 Physical Exam - Physical Exam General Appearance: alert, no apparent distress Neck: supple Respiratory: decreased breath sounds (R base) Cardiac/Chest: regular rate, rhythm Skin: normal color, warm/dry Neuro/Psych: alert, normal mood/affect, oriented x 3, abnormal gait, motor weakness, sensory deficit, cognition abnormalities, other (no acute changes) ICD10 Worksheet Patient Problems: Problems Problem Status Onset Orthostatic hypotension Acute Altered mental state Acute Ataxia Acute UTI (urinary tract infection) Acute
[2016-12-31 15:21] VITALS: RESP 24; O2SAT 95
[2016-12-31 16:57] VITALS: BP 182/103; PULSE 60; TEMP 98.2
--- NOTE | 2017-01-01 13:56 | GDS ---
[f rep st] DISCHARGE SUMMARY ADMISSION DIAGNOSES: 1. Parkinson's disease. 2. Dysphagia. 3. Empyema. DISCHARGE DIAGNOSES: 1. Worsening pulmonary status, hypoxemia, rule out pneumonia. 2. Parkinson's disease. 3. Dysphagia. 4. Recurrent empyema, status post thoracentesis, 12/29/16, positive Strep intermedius, on IV antibiotics. 5. Anemia. Hemoglobin 8.0. HISTORY OF PRESENT ILLNESS: The patient is an 86-year-old gentleman with debility and recent diagnosis of Parkinson's disease with well-documented silent aspiration. He was admitted to the hospital for aspiration pneumonia and developed empyema requiring aggressive intervention including VATS on November 18 with drainage of empyema and decortication. He had a second thoracentesis to drain the empyema 12/29/16. He is status post PEG tube placement for dysphagia and has been n.p.o. On the rehab unit. On the afternoon of 12/31/16, the patient developed mild shortness of breath and was tachypneic at 24 respirations per minute. Breathing became more labored. No history of fever, chills, chest pain, nausea or vomiting. Given the patient's recent medical history, it was deemed appropriate to transfer him off the rehab unit. Rafita Suarez M.D. (emergency physician at [facility]), was contacted and medical history and transfer of care was initiated. The patient was transported via EMS. Goal of transfer was to obtain adequate level of medical intervention, observation and subsequent stabilization. /[id number]/MODL MTDD
== END 2016-12-31 19:56 | disposition still patient (30) | DRG 949 ==
LOC: BREH 12:20
PROVIDERS: ADMIT Internal Medicine; ATTEND Physical Medicine & Rehabilitation
PROC: F08Z3ZZ Feeding/Eating Treatment (ICD-10-PCS; principal; 2016-12-09)
PROC: F08Z4ZZ Home Management Treatment (ICD-10-PCS; principal; 2016-12-09)
PROC: F07M3ZZ Motor Function Treatment of Musculoskeletal System - Whole Body (ICD-10-PCS; principal; 2016-12-09)
PROC: 0W993ZX Drainage of Right Pleural Cavity, Percutaneous Approach, Diagnostic (ICD-10-PCS; 2016-12-29)
DX: Z48.813 Encounter for surgical aftercare following surgery on the respiratory system (principal); J86.9 Pyothorax without fistula; E87.1 Hypo-osmolality and hyponatremia; R53.81 Other malaise; G20 Parkinson's disease; R13.10 Dysphagia, unspecified; I10 Essential (primary) hypertension; N40.1 Benign prostatic hyperplasia with lower urinary tract symptoms; R21 Rash and other nonspecific skin eruption; D50.9 Iron deficiency anemia, unspecified; E78.5 Hyperlipidemia, unspecified; H40.9 Unspecified glaucoma; I95.1 Orthostatic hypotension; R32 Unspecified urinary incontinence; B95.4 Other streptococcus as the cause of diseases classified elsewhere; R09.02 Hypoxemia; Z93.1 Gastrostomy status
CPT/HCPCS: 92507-GN; 92522-GN; 92526; 92610; 97110-GO; 97110-GP; 97112-GP; 97116-GP; 97162-GP; 97166-GO; 97530-GO; 97530-GP; 97532-GO; 97535-GO; 99366-GO; J0696; J1335; J1650

== ENCOUNTER 2016-12-31 18:10 | Inpatient (IN) | payer OTHER ==
--- NOTE | 2016-12-31 18:23 | EDPHY ---
H & P Time Seen by Provider: 12/31/16 18:10 HPI/ROS: CHIEF COMPLAINT: Trouble breathing HISTORY OF PRESENT ILLNESS: Discharge summary dated 12/08/2016 personally reviewed. Patient has a history of Parkinson's new mid a prolonged hospital stay with aspiration pneumonia and empyema. Today presents with increased work of breathing, decreased oxygen saturations. Symptoms moderate. Not associated or chest pain. Decline, per Dr. Scott, is really today. Patient denies other medical complaints. Strep intermedius on ceftriaxone. Was on Invanz before. REVIEW OF SYSTEMS: Eye: no change in vision ENT: no sore throat Cardiac: no chest pain or syncope Pulmonary: HPI Abdomen: Has PEG tube, no vomiting. Musculoskeletal: no back pain Skin: Some scattered ecchymoses. Neuro: no headache Constitutional: no fever : no urinary symptoms A comprehensive 10 point review of systems is otherwise negative aside from elements mentioned in the history of present illness. PAST MEDICAL HISTORY: Includes Parkinson's disease, bacterial pneumonia and empyema with strep intermedius, VATS decortication and PEG tube placement. Prostatic hypertrophy, glaucoma, hypertension. Social history: Nonsmoker, General Appearance: Alert and conversant, cooperative. Eyes: No scleral icterus. ENT, Mouth: Normal mucous membranes. Respiratory: Rhonchi and crackles bilaterally, slightly increased respiratory rate, saturations mid 80s. Cardiovascular: Regular rate and rhythm. Gastrointestinal: Abdomen is soft and non tender. Neurological: Alert and oriented x3. Normally conversant. Face symmetric, normal movement and sensation in all extremities. Skin: Some scattered bruising especially in the left [place] Musculoskeletal: No peripheral edema and no joint swelling. Psychiatric: Not agitated. Emergency Department course/MDM: Chest x-ray, labs to also include D-dimer. 1850: ddimer elevated, CT chest ordered. Lactate less than 2. Supplemental oxygen applied because of hypoxemia. Likely aspiration pneumonia but without SIRS criteria. Afebrile, respiratory rate 18, heart rate less than 100, white blood cell count 9000. Results and imaging studies discussed and reviewed with the family including and daughter, on the PACs system. Meropenem 1 g IV after discussion with admitting hospitalist. Smoking Status: Never smoked Constitutional: Initial Vital Signs Temperature (C) 36.4 C 12/31/16 18:30 Heart Rate 75 12/31/16 18:30 Respiratory Rate 18 12/31/16 18:30 Blood Pressure 187/97 H 12/31/16 18:30 O2 Sat (%) 87 L 12/31/16 18:30 O2 Delivery Mode Nasal Cannula O2 (L/minute) 3 Allergies/Adverse Reactions: No Known Allergies Allergy (Unverified 02/26/13 15:42) Home Medications: Medication Instructions Recorded Dorzolamide HCl/Timolol Maleat 1 drop EACHEYE BID 02/26/13 [Cosopt Eye Drops] Finasteride [Proscar 5 MG (*)] 5 mg TUBE DAILY 02/26/13 Latanoprost 0.005% [Xalatan 0.005% 1 drops EACHEYE HS 02/26/13 (*)] Aspirin [Aspirin 81mg (*)] 81 mg TUBE DAILY 08/12/15 Ascorbic Acid [Vitamin C 500 mg 500 mg TUBE DAILY 11/17/16 (*)] Carbidopa/Levodopa 25/100Mg 1 tab TUBE TID 11/17/16 [Sinemet 25/100 MG (*)] ACETAMINOPHEN 650 mg TUBE Q4 PRN 12/31/16 Alteplase [Cathflo Activase 2 mg 2 mg IV PRN PRN 12/31/16 (*)] Atorvastatin Calcium [Lipitor 20 20 mg TUBE DAILY18 12/31/16 mg (*)] Bisacodyl [Dulcolax] 10 mg ME DAILY PRN 12/31/16 Brimonidine 0.2% [ALPHAGAN 0.2% 1 drops EACHEYE BID 12/31/16 (RX)] Ertapenem [Invanz] 1 gm IV DAILY@0600 12/31/16 Ferrous Sulfate 300mg/5ml Liquid 300 mg PO DAILY 12/31/16 Mag Hydrox/Al Hydrox/Simeth 30 ml TUBE Q6 PRN 12/31/16 [Maalox Maximum Strength Suspension] Magnesium Hydroxide [Milk of 30 ml TUBE DAILY PRN 12/31/16 Magnesia] Melatonin [Melatonin 3 MG (*)] 3 mg TUBE HS 12/31/16 Memantine HCl [Namenda 5 mg (*)] 5 mg TUBE DAILY 12/31/16 Multivitamins [Thera-Plus Oral 5 ml TUBE DAILY 12/31/16 Liquid] Nystatin [Mycostatin Cream (RX)] 1 sherry TP BID 12/31/16 Sennosides [Senna] 8.8 - 17.6 mg TUBE BID PRN 12/31/16 Sodium Chloride [Salt Tablet] 1,000 mg TUBE DAILY 12/31/16 Medical Decision Making - Diagnostics EKG Interpretation: 12-lead EKG interpreted by me; official reading is in trace master. My interpretation is sinus rhythm, Pac, left anterior fascicular block. Imaging: Chest x-ray interpreted by me shows worsening right lung infiltrates. CT reviewed with Valerie at 8:12 p.m. shows worsening right-sided pneumonia and video speech study showing aspiration. No pulmonary embolism. Differential Diagnosis: Differential diagnosis considered for shortness of breath including but not limited to pulmonary infectious process, COPD, asthma, pulmonary embolus and congestive heart failure. Consult/Admit Bed Type: [place] 818pm Critical Care Time: Critical care time spent by me, Dr. Suarez, exclusively with the care of this patient was 30 minutes, exclusive of PA or TERRITORY SUPERVISOR time and exclusive of separate procedures. The organ system at risk was pulmonary and I ordered IV antibiotics , multiple diagnostic studies, discussion with admitting hospitalist, supplemental oxygen for hypoxemia; to stabilize the patient and prevent worsening of the patient's condition. - Data Points Laboratory Results: Laboratory Results 12/31/16 17:58 12/31/16 17:58 12/31/16 12/31/16 12/31/16 18:45 17:58 17:58 WBC RBC Hgb Hct MCV MCH MCHC RDW Plt Count MPV Neut % (Auto) Lymph % (Auto) O'Brien % (Auto) Eos % (Auto) Baso % (Auto) Nucleat RBC Rel Count Absolute Neuts (auto) Absolute Lymphs (auto) Absolute Monos (auto) Absolute Eos (auto) Absolute Basos (auto) Absolute Nucleated RBC Immature Gran % Immature Gran # PT 15.9 SEC H SEC (12.0-15.0) INR 1.27 H (0.83-1.16) APTT 32.0 SEC SEC (23.0-38.0) D-Dimer 3.76 ug/mLFEU H ug/mLFEU (0.00-0.50) VBG Lactic Acid 1.1 mmol/L mmol/L (0.7-2.1) Sodium 140 mEq/L mEq/L (134-144) Potassium 5.0 mEq/L mEq/L (3.5-5.2) Chloride 101 mEq/L mEq/L (97-110) Carbon Dioxide 30 mEq/l mEq/l (22-31) Anion Gap 9 mEq/L mEq/L (8-16) BUN 24 mg/dL H mg/dL (7-23) Creatinine 0.6 mg/dL L mg/dL (0.7-1.3) Estimated GFR > 60 Glucose 90 mg/dL mg/dL (70-100) Calcium 8.3 mg/dL L mg/dL (8.5-10.4) Total Bilirubin 1.0 mg/dL mg/dL (0.1-1.4) 12/31/16 17:58 WBC 9.54 10^3/uL H 10^3/uL (3.80-9.50) RBC 3.81 10^6/uL L 10^6/uL (4.40-6.38) Hgb 9.6 g/dL L g/dL (13.7-17.5) Hct 32.7 % L % (40.0-51.0) MCV 85.8 fL fL (81.5-99.8) MCH 25.2 pg L pg (27.9-34.1) MCHC 29.4 g/dL L g/dL (32.4-36.7) RDW 17.1 % H % (11.5-15.2) Plt Count 354 10^3/uL D 10^3/uL (150-400) MPV 10.8 fL fL (8.7-11.7) Neut % (Auto) 78.8 % H % (39.3-74.2) Lymph % (Auto) 11.3 % L % (15.0-45.0) O'Brien % (Auto) 7.0 % % (4.5-13.0) Eos % (Auto) 0.9 % % (0.6-7.6) Baso % (Auto) 0.5 % % (0.3-1.7) Nucleat RBC Rel Count 0.4 % H % (0.0-0.2) Absolute Neuts (auto) 7.51 10^3/uL H 10^3/uL (1.70-6.50) Absolute Lymphs (auto) 1.08 10^3/uL 10^3/uL (1.00-3.00) Absolute Monos (auto) 0.67 10^3/uL 10^3/uL (0.30-0.80) Absolute Eos (auto) 0.09 10^3/uL 10^3/uL (0.03-0.40) Absolute Basos (auto) 0.05 10^3/uL 10^3/uL (0.02-0.10) Absolute Nucleated RBC 0.04 10^3/uL H 10^3/uL (0-0.01) Immature Gran % 1.5 % H % (0.0-1.1) Immature Gran # 0.14 10^3/uL H 10^3/uL (0.00-0.10) PT INR APTT D-Dimer VBG Lactic Acid Sodium Potassium Chloride Carbon Dioxide Anion Gap BUN Creatinine Estimated GFR Glucose Calcium Total Bilirubin Medications Given: Discontinued Medications Meropenem 1 gm/ Sodium (Chloride) 120 mls @ 120 mls/hr IV EDNOW ONE PRN Reason: Protocol Stop: 12/31/16 21:18 Last Admin: 12/31/16 20:50 Dose: 120 mls Sodium Chloride (Ns) 1,000 mls @ 0 mls/hr IV ONCE ONE PRN Reason: Wide Open Stop: 12/31/16 20:21 Last Admin: 12/31/16 20:30 Dose: 1,000 mls Departure - Departure Disposition: [facility] Inpatient Acute Clinical Impression: Pneumonia Qualifiers: Pneumonia type: due to unspecified organism Laterality: right Lung location: unspecified part of lung Qualified Code(s): J18.9 - Pneumonia, unspecified organism Condition: Serious
[2016-12-31 18:27] LABS: % IMMATURE GRANULYOCYTES 1.5 % (0.0-1.1); ABSOLUTE IMMATURE GRANULOCYTES 0.14 10^3/uL (0.00-0.10); ABSOLUTE NRBC COUNT 0.04 10^3/uL (0-0.01); ADD DIFF? NO; ADD MORPH? NO; ADD SCAN? NO; ATYPICAL LYMPHOCYTE FLAG 30 (0-99); FRAGMENT RBC FLAG 20 (0-99); HEMATOCRIT 32.7 % (40.0-51.0); HEMOGLOBIN 9.6 g/dL (13.7-17.5); LEFT SHIFT FLG 10 (0-99); LIPEMIA HEMOLYSIS FLAG 70 (0-99); MEAN CELL HEMOGLOBIN 25.2 pg (27.9-34.1); MEAN CELL HEMOGLOBIN CONCENTR. 29.4 g/dL (32.4-36.7); MEAN CELL VOLUME 85.8 fL (81.5-99.8); MEAN PLATELET VOLUME 10.8 fL (8.7-11.7); NRBC-AUTO% 0.4 % (0.0-0.2); PLATELET CLUMPS FLAG 0 (0-99); PLATELET COUNT 354 10^3/uL (150-400); RED BLOOD CELL COUNT 3.81 10^6/uL (4.40-6.38); RED CELL DISTRIBUTION WIDTH 17.1 % (11.5-15.2)
--- NOTE | 2016-12-31 18:34 | CPEKG ---
Heart Rate: 65 RR Interval: 923 P-R Interval: 132 QRSD Interval: 104 QT Interval: 460 QTC Interval: 479 P [place]: 33 QRS [place]: -59 T Wave [place]: 37 EKG Severity - ABNORMAL ECG - EKG Impression: SINUS RHYTHM EKG Impression: MULTIPLE ATRIAL PREMATURE COMPLEXES EKG Impression: LEFT ANTERIOR FASCICULAR BLOCK EKG Impression: PROBABLE LEFT VENTRICULAR HYPERTROPHY EKG Impression: BORDERLINE PROLONGED QT INTERVAL Electronically Signed By: Rafita Suarez 31-Dec-2016 18:54:39
[2016-12-31 18:36] LABS: INR 1.27 (0.83-1.16); PROTIME(PATIENT) 15.9 SEC (12.0-15.0)
[2016-12-31 18:38] LABS: ANION GAP 9 mEq/L (8-16); CALCIUM 8.3 mg/dL (8.5-10.4); CARBON DIOXIDE 30 mEq/l (22-31); CHLORIDE 101 mEq/L (97-110); CREATININE 0.6 mg/dL (0.7-1.3); GLOMERULAR FILTRATION RATE > 60; GLUCOSE 90 mg/dL (70-100); SODIUM 140 mEq/L (134-144)
[2016-12-31] MEDS ORDERED: IOPAMIDOL (ISOVUE 370) 100 ML BTL IV ONE (18:55)
[2016-12-31] MEDS ORDERED: MEROPENEM 1 GM in NS 100 ML IV ONE (20:19)
[2016-12-31] MEDS ORDERED: NS 1,000 ML IV ONE (20:20)
[2016-12-31] MEDS ORDERED: ONDANSETRON DISINTEGRATING 4 MG TAB PO PRN (23:18)
[2016-12-31] MEDS ORDERED: ALBUTEROL 3 ML DEYVIAL IH PRN (23:18)
[2016-12-31] MEDS ORDERED: ONDANSETRON 4 MG/2 ML VIAL IVP PRN (23:18)
[2016-12-31] MEDS ORDERED: ACETAMINOPHEN 325 MG TAB PO PRN (23:18)
[2016-12-31] MEDS ORDERED: NS 1,000 ML IV SCH (23:30)
[2016-12-31] MEDS ORDERED: ACETAMINOPHEN 650 MG/20.3 ML UDCUP TUBE PRN (23:30)
[2016-12-31] MEDS ORDERED: MAGNESIUM HYDROXIDE 30 ML UDCUP TUBE PRN (23:30)
[2016-12-31] MEDS ORDERED: MAG HYDROX/AL HYDROX/SIMETH 30 ML UDCUP TUBE PRN (23:30)
[2016-12-31] MEDS ORDERED: SENNOSIDES 17.6 MG/10 ML UDL TUBE PRN (23:30)
[2016-12-31] MEDS ORDERED: BISACODYL 10 MG SUPP PR PRN (23:30)
--- NOTE | 2017-01-01 00:25 | GHP ---
[f rep st] HISTORY AND PHYSICAL DATE OF ADMISSION: 12/31/2016 CHIEF COMPLAINT: Cough and fatigue. HISTORY OF PRESENT ILLNESS: The patient is an 86-year-old male, with a history of Parkinson's disease and recurrent silent aspiration, who was admitted into the hospital over 6 weeks ago with an aspiration pneumonia. He developed an empyema, and underwent VATS on November 18, with drainage of the empyema and decortication. He ultimately grew Strep intermedius, and was treated with 4 weeks of ceftriaxone. Swallow evaluation revealed ongoing aspiration, and the patient was made n.p.o., and a PEG tube was placed. He has since been transferred to inpatient rehab where he receives tube feeds. He has developed recurrent dyspnea and imaging at the rehab facility revealed recurrent pleural effusion. He underwent a repeat thoracentesis 2 days prior to admission, which, unfortunately, again grew Streptococcus intermedius. He was transferred to the emergency department where a CT pulmonary angiogram shows worsening right upper lobe and right lower lobe pneumonia, with recurrent moderate-sized right-sided empyema. He denies fevers or chills. He reports fatigue and ongoing dyspnea, and cough. He has recently been trying to take a little more by mouth, and his family suspects this may have contributed to his recurrent pneumonia. However, there is a suggestion that he has chronic silent aspiration. The patient himself is quite worn out by this process, and does not wish to undergo further interventions. He ultimately states to his and 4 children, who are all present at the bedside, that he wishes to have hospice. He is, however, open to antibiotics for now. He received a dose of meropenem, and he is admitted to the hospital for further management. PAST MEDICAL HISTORY: 1. Parkinson's disease. 2. Benign prostatic hypertrophy. 3. Glaucoma. 4. Hypertension. 5. ITP. 6. Hyperlipidemia. PAST SURGICAL HISTORY: 1. Cholecystectomy. 2. Eye surgery. MEDICATIONS: Please see [facility] for complete updated outpatient medication list. SOCIAL HISTORY: The patient is a nonsmoker. He quit drinking 10 years ago. 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 FAMILY HISTORY: Reviewed, is noncontributory. REVIEW OF SYSTEMS: A 10-point review of system was performed, and is negative except as per HPI. OBJECTIVE: VITAL SIGNS: Temperature is 36.6, blood pressure 167/86, heart rate 67, respiratory rate 16. He is 97% on 4 L of oxygen by nasal cannula. GENERAL: The patient is awake, alert, and oriented, in no acute distress. He appears pale and cachectic. HEENT: Head is atraumatic, normocephalic. Pupils are equal, round, reactive to light. He has some temporal wasting. Extraocular muscles are intact. Oropharynx is clear. Mucous membranes are moist. NECK: Supple. There is no JVD. HEART: Has a regular rate and rhythm without murmur. LUNGS: Reveal scattered crackles bilaterally, right greater than left. ABDOMEN: Soft, nondistended, nontender, with normoactive bowel tones. His PEG tube was inspected, appears clean without drainage or erythema. EXTREMITIES: Without cyanosis, clubbing, or edema. NEUROLOGIC: Exam is grossly nonfocal. LABORATORY DATA: CBC reveals a white blood cell count of 9.4, hemoglobin 9.6, platelets are 354. Basic metabolic panel shows normal electrolytes, BUN 24, creatinine 0.6. INR is 1.27. D-dimer is elevated at 3.76. Review of his pleural fluid from December 29, he had 4000 white cells, with 98% neutrophils. A pleural fluid culture grew Streptococcus intermedius, which was the same bug present in November 2016. Blood cultures are currently pending. CT chest/pulmonary angiogram was negative for pulmonary embolism, but shows worsening right upper lobe and right lower lobe pneumonia, with a moderate- sized right empyema. Chest x-ray shows a worsening right lower lobe pneumonia, with a stable right pleural effusion, and possible infiltrate in the left lower lobe. EKG shows normal sinus rhythm, without evidence of acute ischemia. ASSESSMENT AND PLAN: The patient is an 86-year-old male, with history of Parkinson's disease and recurrent aspiration pneumonia, who returns to the hospital from inpatient rehab with recurrent empyema. 1. Empyema, in the setting of worsening pneumonia due to recurrent aspiration. This is based on CT imaging and pleural fluid culture data from December 29. He is again growing Streptococcus intermedius. Unfortunately, this has occurred after a prior VATS with decortication, and he continues to have ongoing silent aspiration. I had a lengthy discussion with the patient, his , and his 4 children regarding the option to pursue surgical intervention again. Ultimately, he does not want to proceed with any more invasive procedures. He states he feels like he is nearing the end of his life, and is requesting Palliative Care and Hospice evaluation. He is, however, open to antibiotics for now. Per review of the Infectious Disease notes from yesterday , we will continue him on IV ertapenem. Palliative Care consult is requested, and this may lead to a Hospice consult. The patient and his family all agreed they would like to start with palliative care. 2. Recurrent aspiration with PEG tube. The patient will be left n.p.o. I will give him some IV fluids overnight to maintain hydration. A Dietary consult is requested, so he can get his tube feeds ordered for tomorrow. We will continue all of his medications per tube. 3. Parkinson's disease. This appears stable. The patient will be continued on his Sinemet. 4. Deep vein thrombosis prophylaxis. Lovenox. 5. Disposition. Patient is admitted to inpatient status, as he will likely require greater than 48 hours of hospitalization for ongoing management of his empyema, and determination of his care goals. /[id number]/MODL MTDD
[2017-01-01] MEDS: ERTAPENEM 1 GM in NS 100 ML IV SCH (04:30)
[2017-01-01 05:08] LABS: % IMMATURE GRANULYOCYTES 1.1 % (0.0-1.1); ABSOLUTE NRBC COUNT 0.02 10^3/uL (0-0.01); ADD DIFF? NO; ADD MORPH? NO; ADD SCAN? NO; ATYPICAL LYMPHOCYTE FLAG 40 (0-99); FRAGMENT RBC FLAG 20 (0-99); HEMOGLOBIN 8.2 g/dL (13.7-17.5); LEFT SHIFT FLG 10 (0-99); LIPEMIA HEMOLYSIS FLAG 70 (0-99); MEAN CELL HEMOGLOBIN 24.6 pg (27.9-34.1); MEAN CELL HEMOGLOBIN CONCENTR. 29.3 g/dL (32.4-36.7); MEAN CELL VOLUME 83.8 fL (81.5-99.8); MEAN PLATELET VOLUME 10.9 fL (8.7-11.7); NRBC-AUTO% 0.2 % (0.0-0.2); PLATELET CLUMPS FLAG 0 (0-99); PLATELET COUNT 313 10^3/uL (150-400); RED BLOOD CELL COUNT 3.34 10^6/uL (4.40-6.38); RED CELL DISTRIBUTION WIDTH 17.1 % (11.5-15.2)
[2017-01-01 05:15] LABS: ANION GAP 6 mEq/L (8-16); CALCIUM 7.8 mg/dL (8.5-10.4); CARBON DIOXIDE 27 mEq/l (22-31); CHLORIDE 105 mEq/L (97-110); CREATININE 0.5 mg/dL (0.7-1.3); GLOMERULAR FILTRATION RATE > 60; GLUCOSE 84 mg/dL (70-100); POTASSIUM 4.7 mEq/L (3.5-5.2); SODIUM 138 mEq/L (134-144)
[2017-01-01] MEDS ORDERED: ENOXAPARIN 40 MG/0.4 ML SYR SC SCH (09:00)
[2017-01-01] MEDS: ASPIRIN 81 MG CHEWABLE TAB TUBE SCH (09:52)
[2017-01-01] MEDS: FINASTERIDE 5 MG TAB TUBE SCH (09:52)
[2017-01-01] MEDS: MEMANTINE HCL 5 MG TAB TUBE SCH (09:52)
[2017-01-01] MEDS: CARBIDOPA/LEVODOPA 25 MG/100 MG TAB TUBE SCH ×3 (09:52→21:45)
[2017-01-01] MEDS: SODIUM CHLORIDE 1,000 MG TAB TUBE SCH (09:53)
[2017-01-01] MEDS: NYSTATIN 15 GM CR TUBE TP SCH ×2 (10:22→20:50)
[2017-01-01] MEDS: DORZOLAMIDE/TIMOLOL 10 ML OPHT.BTL EACHEYE SCH ×2 (10:22→21:45)
[2017-01-01] MEDS: BRIMONIDINE 0.2% 5 ML OPHT.BTL EACHEYE SCH ×2 (10:23→20:50)
--- NOTE | 2017-01-01 14:41 | PDPCPN ---
Palliative Care Progress Note Assessment/Plan: Referring provider: Dr De La Fuente Reason for consult: Complex medical decision making Symptom control HPI: Marck Ortega is a 86 yo male with PMH parkinsons, BPH, and recurrent asp PNA admitted to the hospital from inpt rehab for ongoing dyspnea and worsening right lobe PNA. Ct chest on admission with worsening of right asp PNA with empyema. s/p PEG tube placement on last admission. With repeated VFSS 12/29 with ongoing chronic silent aspiration of honey thick liquids and no improvement in dysphagia. Palliative care consulted for complex medical decision making. Met with Sindy, children Deepa, Americo, and at the bedside this afternoon. Sd states his understanding of his medical situation is an infection which is not curable and even treated likely won't extend his life. he does not want any heroic measures and just wants comfort. He states to him comfort is being at home with his basic needs taken care of and being with family. 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 We discussed different options including home with hospice vs SNF for IV antibiotics vs home with hospice and HHC vs hospice and oral antibiotics. His preference is to be at home with hospice care and antibiotics. Assessment: Physical: - Pain: on occasion - tylenol PRN - if needing something stronger then roxanol 5mg PO Q2hr PRN - Dyspnea: on occasion - roxanol 5 mg PO Q2h PRN - oxygen as needed - constipation - at risk if on opiates Emotional/psychological: Doing well. Has a lot of support from family. Advanced Care Planning: Is patient decisional?: Yes Code Status: DNR/DNI POA: Sindy is MDPOA. Plan: Sd would like to be at home with hospice care. Would like to continue antibiotics as long as they are benefiting him. Will ask hospice if they will allow for oral antibiotics while on home hospice care. Will also work with family on getting caregivers to help Sindy. Subjective: Im ok Objective: Social History: to Sindy. 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 Has 4 children all local and involved. Medication list reviewed ROS: General: fatigue, weakness ENT: dysphagia Resp: dyspnea, cough GI: negative : negative MS: occasional chest pain from PNA Skin: negative Neuro: negative Psych: negative Functional assessment: PPS: 40% Functional status: needs assistance with most ADLs. Declined recently now needing help with ambulation Vital Signs Temp Pulse Resp BP Pulse Ox 36.6 C 57 L 20 157/76 H 100 01/01/17 12:50 01/01/17 12:50 01/01/17 12:50 01/01/17 12:50 01/01/17 12:50 Laboratory Results 01/01/17 04:30 01/01/17 04:30 12/31/16 01/01/17 01/02/17 05:59 05:59 05:59 Intake Total 1755 Output Total 300 Balance 1455 PT 15.9 SEC (12.0-15.0) H 12/31/16 17:58 INR 1.27 (0.83-1.16) H 12/31/16 17:58 ICD10 Worksheet Patient Problems: Problems Problem Status Onset Pneumonia Acute Altered mental state Acute Ataxia Acute Orthostatic hypotension Acute UTI (urinary tract infection) Acute
--- NOTE | 2017-01-01 15:51 | HOSPPROG ---
Hospitalist Progress Note Assessment/Plan: Assessment: 86-year-old male presents with acute, recurrent empyema and aspiration pneumonia in the setting of advanced Parkinson's disease and chronic dysphagia Plan: 1. Aspiration pneumonia/empyema. Acute, recurrent, in the setting of dysphagia , most likely secondary to silent aspiration as the patient is adhering to all of his swallow and dietary restrictions. -extensively counseled the patient and his family regarding his overall poor prognosis for treatment given that he has already failed of the VATS/ decortication and he is already adhering strictly to all swallow and dietary recommendations -advised him that utilizing antibiotics at the present time is merely a palliative measure to give him more time with his family at some point in time his condition will advance despite antibiotics -will continue Invanz at this time while his family gathers -I advised a palliative approach from here forward, enlisting help of hospice either at home or at long-term care -the patient has family received this information well and they are meeting with our palliative provider this afternoon to discuss specific details as to whether home versus long-term care will be appropriate -given that the patient's course of treatment will be palliative, I recommended eating and drinking for comfort and not adhering to the strict swallow dietary restrictions which the patient had been placed on at inpatient rehab -will continue his tube feed boluses with free water in the interim so the patient does not become overly thirsty or hungry 2. Parkinson's disease. Although patient does have an element of cognitive impairment, his mental status is remarkably good and at the present time he seems capable of making his own medical decisions -I discussed patient's MPOA and advanced directives with our palliative coordinator, she will address these with patient and his family to ensure that we have a continuous line of care moving forward 3. Chronic hypertension. Permissive, patient is nearing end of life, do not treat asymptomatic high blood pressure readings Diet. Tube feeds, oral intake permitted Prophylaxis. High risk patient, pharmacologic inappropriate at this time given end of life care Code. Do not resuscitate Disposition. Anticipated discharge is 01/02, pending appropriate level of care obtain for the patient moving forward with his decision to move towards hospice. Subjective: Patient like to discuss the medical details of his case prior to undergoing a palliative consultation Objective: Vital Signs Temp Pulse Resp BP Pulse Ox 36.6 C 57 L 20 157/76 H 100 01/01/17 12:50 01/01/17 12:50 01/01/17 12:50 01/01/17 12:50 01/01/17 12:50 Laboratory Results 01/01/17 04:30 01/01/17 04:30 12/31/16 01/01/17 01/02/17 05:59 05:59 05:59 Intake Total 1755 Output Total 300 Balance 1455 PT 15.9 SEC (12.0-15.0) H 12/31/16 17:58 INR 1.27 (0.83-1.16) H 12/31/16 17:58 - Time Spent With Patient Time Spent with Patient: greater than 35 minutes Time Spent with Patient: Greater than 35 minutes spent on this patients care, greater than 50% of time spent counseling, educating, and coordinating care regarding the above mentioned plan. - Physical Exam Constitutional: chronically ill appearing Neurologic: AAOx3, other (Speech somewhat soft and halted but he is making sense ) Psychiatric: not encephalopathic ICD10 Worksheet Patient Problems: Problems Problem Status Onset Ataxia Acute UTI (urinary tract infection) Acute Altered mental state Acute Orthostatic hypotension Acute Pneumonia Acute
[2017-01-01] MEDS: ATORVASTATIN CALCIUM 20 MG TAB TUBE SCH (17:31)
[2017-01-01] MEDS: MELATONIN 3 MG TAB TUBE SCH (20:49)
[2017-01-01] MEDS: LATANOPROST 0.005% 2.5 ML OPHT DROPS EACHEYE SCH (20:50)
[2017-01-02] MEDS: ASPIRIN 81 MG CHEWABLE TAB TUBE SCH (10:24)
[2017-01-02] MEDS: DORZOLAMIDE/TIMOLOL 10 ML OPHT.BTL EACHEYE SCH ×2 (10:25→20:03)
[2017-01-02] MEDS: CARBIDOPA/LEVODOPA 25 MG/100 MG TAB TUBE SCH ×3 (10:25→21:47)
[2017-01-02] MEDS: BRIMONIDINE 0.2% 5 ML OPHT.BTL EACHEYE SCH ×2 (10:25→20:04)
[2017-01-02] MEDS: ERTAPENEM 1 GM in NS 100 ML IV SCH (10:25)
[2017-01-02] MEDS: MEMANTINE HCL 5 MG TAB TUBE SCH (10:26)
[2017-01-02] MEDS: FINASTERIDE 5 MG TAB TUBE SCH (10:26)
[2017-01-02] MEDS: SODIUM CHLORIDE 1,000 MG TAB TUBE SCH (10:26)
[2017-01-02] MEDS: NYSTATIN 15 GM CR TUBE TP SCH (10:26)
[2017-01-02] MEDS: ATORVASTATIN CALCIUM 20 MG TAB TUBE SCH (16:56)
--- NOTE | 2017-01-02 17:19 | HOSPPROG ---
Hospitalist Progress Note Assessment/Plan: Assessment: 86-year-old male presents with acute, recurrent empyema and aspiration pneumonia in the setting of advanced Parkinson's disease and chronic dysphagia Plan: 1. Aspiration pneumonia/empyema. Acute, recurrent, in the setting of dysphagia , most likely secondary to silent aspiration as the patient is adhering to all of his swallow and dietary restrictions. -counseled patient and family that oral intake is purely for comfort at this point will continue tube feedings with fluid boluses to facilitate prolonging life -counseled that there it will not be appreciable difference in the response from IV versus oral antibiotics, recommended oral antibiotics including liquid Augmentin for 1 subsequent week -advised the patient that most likely has somewhere in the magnitude of days to weeks depending on clinical progression of pneumonia, and I would recommend home hospice as soon as his family is able to facilitate / care -I would recommend hospice immediately working with the patient and his family to understand end of life symptoms and to support them in identifying them sooner rather than later -the patient does have some anxiety around getting his financial affairs in order and his son has volunteered to help him with this 2. Parkinson's disease. Although patient does have an element of cognitive impairment, his mental status is remarkably good and at the present time he seems capable of making his own medical decisions 3. Chronic hypertension. Permissive, patient is nearing end of life, do not treat asymptomatic high blood pressure readings Diet. Tube feeds, oral intake permitted Prophylaxis. High risk patient, pharmacologic inappropriate at this time given end of life care Code. Do not resuscitate Disposition. Anticipated discharge is 4/5, pending appropriate level of care obtain for the patient moving forward with his decision to move towards hospice. Subjective: Family has gathered for a comprehensive goals of care conversation with the patient Objective: Vital Signs Temp Pulse Resp BP Pulse Ox 36.4 C 60 16 166/82 H 98 01/02/17 15:52 01/02/17 15:52 01/02/17 15:52 01/02/17 15:52 01/02/17 15:52 Laboratory Results 01/01/17 04:30 01/01/17 04:30 01/01/17 01/02/17 01/03/17 05:59 05:59 05:59 Intake Total 1755 1680 1095 Output Total 300 Balance 1455 1680 1095 PT 15.9 SEC (12.0-15.0) H 12/31/16 17:58 INR 1.27 (0.83-1.16) H 12/31/16 17:58 - Time Spent With Patient Time Spent with Patient: greater than 35 minutes Time Spent with Patient: Greater than 35 minutes spent on this patients care, greater than 50% of time spent counseling, educating, and coordinating care regarding the above mentioned plan. - Physical Exam Constitutional: not in pain, chronically ill appearing, No uncomfortable Psychiatric: interacting appropriately, not anxious, not encephalopathic, thought process linear ICD10 Worksheet Patient Problems: Problems Problem Status Onset Ataxia Acute UTI (urinary tract infection) Acute Altered mental state Acute Orthostatic hypotension Acute Pneumonia Acute
[2017-01-02] MEDS: LATANOPROST 0.005% 2.5 ML OPHT DROPS EACHEYE SCH (20:02)
[2017-01-02] MEDS: MELATONIN 3 MG TAB TUBE SCH (21:48)
[2017-01-03] MEDS: NYSTATIN 15 GM CR TUBE TP SCH ×2 (04:41→09:20)
[2017-01-03 08:39] VITALS: BP 148/64; PULSE 62; RESP 18; TEMP 97.6; O2SAT 92
[2017-01-03] MEDS: ERTAPENEM 1 GM in NS 100 ML IV SCH (09:19)
[2017-01-03] MEDS: SODIUM CHLORIDE 1,000 MG TAB TUBE SCH (09:19)
[2017-01-03] MEDS: CARBIDOPA/LEVODOPA 25 MG/100 MG TAB TUBE SCH (09:19)
[2017-01-03] MEDS: MEMANTINE HCL 5 MG TAB TUBE SCH (09:19)
[2017-01-03] MEDS: ASPIRIN 81 MG CHEWABLE TAB TUBE SCH (09:19)
[2017-01-03] MEDS: FINASTERIDE 5 MG TAB TUBE SCH (09:19)
[2017-01-03] MEDS: BRIMONIDINE 0.2% 5 ML OPHT.BTL EACHEYE SCH (09:21)
[2017-01-03] MEDS: DORZOLAMIDE/TIMOLOL 10 ML OPHT.BTL EACHEYE SCH (09:21)
--- NOTE | 2017-01-03 13:10 | PDIAF ---
- Diagnosis Diagnosis: Aspiration Pneumonia, Empyema, Parkinson's Disease Code Status: Do Not Resuscitate - Medication Management Discharge Medications: Medications to Continue on Transfer Dorzolamide HCl/Timolol Maleat [Cosopt Eye Drops] 1 drop EACHEYE BID 02/26/13 [ Last Taken 12/31/16 09:00] Finasteride [Proscar 5 MG (*)] 5 mg TUBE DAILY 02/26/13 [Last Taken 12/31/16] Latanoprost 0.005% [Xalatan 0.005% (*)] 1 drops EACHEYE HS 02/26/13 [Last Taken 12/30/16] Aspirin [Aspirin 81mg (*)] 81 mg TUBE DAILY 08/12/15 [Last Taken 12/31/16] Ascorbic Acid [Vitamin C 500 mg (*)] 500 mg TUBE DAILY 11/17/16 [Last Taken 11/17] Carbidopa/Levodopa 25/100Mg [Sinemet 25/100 MG (*)] 1 tab TUBE TID 11/17/16 [ Last Taken 12/31/16 09:00] Atorvastatin Calcium [Lipitor 20 mg (*)] 20 mg TUBE DAILY18 12/31/16 [Last Taken 12/30/16] Bisacodyl [Dulcolax] 10 mg SC DAILY PRN 12/31/16 [Last Taken Unknown] Brimonidine 0.2% [Alphagan 0.2%] 1 drops EACHEYE BID 12/31/16 [Last Taken 09:00] Ferrous Sulfate 300mg/5ml Liquid 300 mg PO DAILY 12/31/16 [Last Taken 12/31/16] Mag Hydrox/Al Hydrox/Simeth [Maalox Maximum Strength Suspension] 30 ml TUBE Q6 PRN 12/31/16 [Last Taken Unknown] Magnesium Hydroxide [Milk of Magnesia] 30 ml TUBE DAILY PRN 12/31/16 [Last Taken Unknown] Melatonin [Melatonin 3 MG (*)] 3 mg TUBE HS 12/31/16 [Last Taken 12/30/16] Memantine HCl [Namenda 5 mg (*)] 5 mg TUBE DAILY 12/31/16 [Last Taken 12/31/16] Multivitamins [Thera-Plus Oral Liquid (OTC)] 5 ml TUBE DAILY 12/31/16 [Last Taken 12/31/16] Nystatin [Mycostatin Cream (RX)] 1 sherry TP BID 12/31/16 [Last Taken 12/31/16 09: 00] Sennosides [Senna] 8.8 - 17.6 mg TUBE BID PRN 12/31/16 [Last Taken Unknown] Sodium Chloride [Salt Tablet] 1,000 mg TUBE DAILY 12/31/16 [Last Taken 12/31/16] Amox Tr/Potassium Clavulanate [Augmentin 400MG/5ML (*)] 800 mg TUBE BID #14 dose 01/03/17 [Last Taken Unknown] Ondansetron Odt [Zofran Odt 4 mg (*)] 4 mg PO Q4HRS PRN #40 tab 01/03/17 [Last Taken Unknown] Long-Term Antibiotics: Augmentin 800mg liquid 2xd Long-Term Antibiotic Stop Date: 01/10/17 Discharge Medications: Refer to the Discharge Home Medication list for PRN reason. PICC Care - Routine: Yes - Orders Services needed: Registered Nurse (manager medical) Diet Recommendation: no restrictions on diet, other (tube feed boluses with free water ) Tube feeding: bolus feeds with water Michael: Not applicable - Follow Up Care Current Providers and Referrals: Patient,NotPresent [Unknown] - As per Instructions
--- NOTE | 2017-01-03 14:23 | PDIAF ---
- Diagnosis Diagnosis: Aspiration Pneumonia, Empyema, Parkinson's Disease Code Status: Do Not Resuscitate - Medication Management Discharge Medications: Medications to Continue on Transfer Dorzolamide HCl/Timolol Maleat [Cosopt Eye Drops] 1 drop EACHEYE BID 02/26/13 [ Last Taken 12/31/16 09:00] Finasteride [Proscar 5 MG (*)] 5 mg TUBE DAILY 02/26/13 [Last Taken 12/31/16] Latanoprost 0.005% [Xalatan 0.005% (*)] 1 drops EACHEYE HS 02/26/13 [Last Taken 12/30/16] Carbidopa/Levodopa 25/100Mg [Sinemet 25/100 MG (*)] 1 tab TUBE TID 11/17/16 [ Last Taken 12/31/16 09:00] Bisacodyl [Dulcolax] 10 mg MO DAILY PRN 12/31/16 [Last Taken Unknown] Brimonidine 0.2% [Alphagan 0.2%] 1 drops EACHEYE BID 12/31/16 [Last Taken 09:00] Mag Hydrox/Al Hydrox/Simeth [Maalox Maximum Strength Suspension] 30 ml TUBE Q6 PRN 12/31/16 [Last Taken Unknown] Magnesium Hydroxide [Milk of Magnesia] 30 ml TUBE DAILY PRN 12/31/16 [Last Taken Unknown] Melatonin [Melatonin 3 MG (*)] 3 mg TUBE HS 12/31/16 [Last Taken 12/30/16] Memantine HCl [Namenda 5 mg (*)] 5 mg TUBE DAILY 12/31/16 [Last Taken 12/31/16] Nystatin [Mycostatin Cream (RX)] 1 sherry TP BID 12/31/16 [Last Taken 12/31/16 09: 00] Sennosides [Senna] 8.8 - 17.6 mg TUBE BID PRN 12/31/16 [Last Taken Unknown] Sodium Chloride [Salt Tablet] 1,000 mg TUBE DAILY 12/31/16 [Last Taken 12/31/16] Amox Tr/Potassium Clavulanate [Augmentin 400MG/5ML (*)] 800 mg TUBE BID #14 dose 01/03/17 [Last Taken Unknown] Ondansetron Odt [Zofran Odt 4 mg (*)] 4 mg PO Q4 PRN #40 tab 01/03/17 [Last Taken Unknown] Shelter Antibiotics: Augmentin 800mg liquid 2xd Shelter Antibiotic Stop Date: 01/10/17 Discharge Medications: Refer to the Discharge Home Medication list for PRN reason. PICC Care - Routine: Yes - Orders Services needed: Registered Nurse (drying can worker) Diet Recommendation: no restrictions on diet, other (tube feed boluses with free water ) Tube feeding: bolus feeds with water Michael: Not applicable - Follow Up Care Current Providers and Referrals: Patient,NotPresent [Unknown] - As per Instructions
--- NOTE | 2017-01-03 15:57 | PDDCSUM ---
Discharge Summary Discharge Summary: DISCHARGE SUMMARY FOLLOW-UP ITEMS: Hospice care at home DATE OF ADMISSION: 12/31/2016 DATE OF DISCHARGE: 01/03/2017 DISCHARGE DIAGNOSES: 1. Acute aspiration pneumonia with empyema 2. Acute hypoxic respiratory failure 3. Chronic Parkinson's disease 4. Chronic dysphagia 5. Chronic hypertension CONSULTATIONS: Hospice PROCEDURES / IMAGING: Chest CT demonstrating no pulmonary embolism, right-sided recurrent empyema with surrounding pneumonia CHIEF COMPLAINT: Acute shortness of breath SUBJECTIVE: Patient is feeling well at time of discharge, he is satisfied with his home hospice plan PHYSICAL EXAM ON DISCHARGE: Systolic blood pressure is 160, heart rate 70, requiring 5 L nasal cannula oxygen, chronically ill-appearing, voice is somewhat soft, alert awake oriented x3 without encephalopathy LABS ON DISCHARGE: None HOSPITAL COURSE BY PROBLEM: 1. Acute aspiration pneumonia with empyema. Evidenced by dense right-sided infiltrate on chest CT with recurrent empyema in the setting of chronic dysphagia secondary to Parkinson's disease, resulting in respiratory failure. The patient most likely has been silently aspirating resulting in recurrent pneumonia. Despite the patient and his caregivers best attempts at mitigating his risks of aspiration with meticulous adherence to tube feeding instructions and NPO precautions, the patient has experienced a recurrent pneumonia and will most likely continue to do so. In the past he has undergone decortication and the ATS procedure by Dr. Steele, and given his recurrence, I would not recommend further intervention as it is unlikely to produce a different result. The patient did receive IV Invanz and once the decision was made for the patient to pursue home hospice, we agreed to adjusted antibiotics to liquid Augmentin 800 mg twice daily for 7 subsequent days, with the intention being more palliative in so far as it will prevent immediate worsening of his pneumonia and facilitate more time with his family. 2. Acute hypoxic respiratory failure. Evidenced by SpO2 of 87%, objective tachypnea with respiratory rate of 22, symptomatic shortness of breath and labored breathing resulting in his presentation, most likely secondary to aspiration pneumonia and dense airspace disease as outlined above. It should be noted that this diagnosis was present on arrival and is only now being documented due to unintentional over site in documentation to this point, and should be considered a condition which has been present throughout his entire hospitalization and has been appropriately treated with high flow nasal cannula oxygen, treatment of his pneumonia, pulse oximeter monitoring. He will be discharged home on supplemental oxygen. 3. Chronic Parkinson's disease. The patient will be continued on his Sinemet and Namenda to prevent acute decompensation during the short time which he has left. 4. Chronic hypertension. Patient has permissive hypertension but we have continued his single antihypertensive agent so he does not experience acute hypertensive emergency near end of life. 5. Chronic dysphagia. Given the patient is pursuing hospice care, we have recommended liberalizing his oral intake to solids and liquids for comfort, tube feedings bolused per patient preference and continuing tube feedings and free water flushes via PEG tube as long as the patient would like to continue receiving nutrition at home for palliative reasons. DISCHARGE MEDICATIONS: Please see official discharge medication reconciliation sheet in chart , Augmentin 800 mg twice daily for 7 days, as needed Adelinefran, of note, the patient has electively discontinued his iron, vitamin-C, statin therapy, aspirin. DISCHARGE INSTRUCTIONS: Home hospice is making all of patient's arrangements. TIME SPENT: Greater than 30 minutes were spent on direct patient care, as well as discharge planning and preparation.
== END 2017-01-03 15:43 | disposition hospice, home (50) | DRG 177 ==
LOC: EDUNIT# → F1N 21:49
PROVIDERS: ADMIT Hospitalist; ATTEND Hospitalist
DX: J69.0 Pneumonitis due to inhalation of food and vomit (principal); J86.9 Pyothorax without fistula; J96.01 Acute respiratory failure with hypoxia; G20 Parkinson's disease; I10 Essential (primary) hypertension; R13.10 Dysphagia, unspecified; N40.0 Benign prostatic hyperplasia without lower urinary tract symptoms; E78.5 Hyperlipidemia, unspecified; H40.9 Unspecified glaucoma; Z66 Do not resuscitate
CPT/HCPCS: 96365; 97162-GP; 97165-GO; G8978-GP-CK; G8979-GP-CI; G8987-GO-CL; G8988-GO-CK; J1335; J1650; J2185; Q9967

== ENCOUNTER → 2017-06-28 | Outpatient (CLI) | payer OTHER | LOC: FIMAGING 11:26 | DX: J90 Pleural effusion, not elsewhere classified (principal) ==